=== PATIENT | female | born 1975 | race Caucasian/White ===

== ENCOUNTER 2017-08-10 08:55 | Emergency (ER) | payer BC, SELFPAY ==
[2017-08-10 09:25] VITALS: BP 126/72; PULSE 69; RESP 18; TEMP 36.8; O2SAT 100; BMI 28.7
[2017-08-10 09:26] LABS: Color,Urine Orange (Yellow)
[2017-08-10 09:27] LABS: Apearance,Urine Clear (Clear); Blood, Urine 4+ (Negative); Glucose,Urine (UA) 100 (Negative); Ketones,Urine 15 (Negative); PH,Urine 6.5 (5.0-8.5); Protein,Urine 2+ (Negative); Specific Gravity, Urine >= 1.030 (1.005-1.030)
[2017-08-10 09:28] LABS: Bilirubin,Urine 3+ (Negative); UTC Leukocyte Esterase,Urine 3+ (Negative); UTC Nitrate,Urine Positive (Negative); Urobilinogen,Urine 4 EU/dl (0.2)
--- NOTE | 2017-08-10 09:43 | HMH.EDUTC ---
[facility] Disposition Clinical Impression: UTI (urinary tract infection) Qualifiers: Urinary tract infection type: acute cystitis Hematuria presence: with hematuria Qualified Code(s): N30.01 - Acute cystitis with hematuria Disposition: Home, Self-Care Condition on Discharge: Good Instructions: DI for Urinary Tract Infection (UTI) Additional Instructions: * increase fluids, Water and NOT soda or tea * Start antibiotic immediately and be sure to take as ordered for the FULL length of time although you should start to see improvement over the next 48 hours. * pyridium as needed. Remember this will turn your urine ORANGE, this is normal but will stain whatever it gets on. this includes tears and contacts. Try not to wear contacts due to risk of staining orange. * You should not need the pyridium longer than 48 hours. If so, follow up with primary care to review urine culture and ensure antibiotic is adequate * Be SURE to follow up anytime for new or worsening symptoms, AND in 48 hours for urine culture results AND in 10-14 days to repeat UA and ensure infection resolved and blood no longer present. * Be sure to let your PCP (or whoever you follow up with) know we sent urine culture so they can request records and ensure you are on the appropriate antibiotic if you are not getting better or getting worse!!! Prescriptions: Phenazopyridine HCl [Pyridium 200mg Tablet] 200 mg PO TID PRN #6 tab PRN Reason: Dysuria Sulfamethoxazole/Trimethoprim [Bactrim DS tablet] 1 each PO BID #20 tab Referrals: Ludin Edwards MD [Primary Care Provider] - (as we discussed. See discharge instructions.) Time of Disposition: 09:47 Medical Decision Making Vital Signs: 08/10/17 09:25 Temperature 98.2 F Temperature Source Temporal Artery Scan Pulse Rate [Brachial] 69 Respiratory Rate 18 Blood Pressure [Right Arm] 126/72 Blood Pressure Mean [Right Arm] 90 Blood Pressure Source [Right Arm] Automatic Cuff Blood Pressure Position [Right Arm] Sitting 02 Sat by Pulse Oximetry 100 Oxygen Delivery Method Room Air - Lab Data Lab results reviewed: Yes: I reviewed the patient's lab results. Lab Results 08/10/17 09:25: Urine Color [place], Urine Appearance Clear, Urine pH 6.5, Ur Specific [place] >= 1.030, Urine Protein 2+, Urine Glucose (UA) 100, Urine Ketones 15, Urine Blood 4+, Urine Nitrate Positive A, Urine Bilirubin 3+ A, Urine Urobilinogen 4, Ur Leukocyte Esterase 3+ A Orders (Tests/Meds): ORDERS Category Date Time Status Urine Culture Stat Micro 08/10/17 09:44 Ordered - Oliverio Inquiry Pt receiving controlled substance: No [facility] HPI - General Stated complaint: possible uti Time Seen by Provider: 08/10/17 09:32 Mode of Arrival: Ambulatory Source of Information: Patient Limitations: No Limitations Description of Symptoms (Recalled from Triage Doc. by RN): POSSIBLE UTI SINCE THURSDAY HEENT Symptoms (Recalled from RN notes): No Resp Symptoms (Recalled from RN notes): No Skin Symptoms (Recalled from RN notes): No MS Symptoms (Recalled from RN notes): No Functional Status (Recalled from RN notes): NA - History of Present Illness Provider Complaint: c/o I think another UTI . Hx of UTIs. Last one around 9 months ago. Has been to urologist and they can't find a cause . Currently menstrauting. Started with typical not feeling well overall on Thursday. Woke up Thursday with dysuria. Tried to get in to PCP but full. Worse yesterday. Azo helped. Tried avoiding urgent care and waiting for PCP today. Couldn't get in there today so now here. Hasn't taken or tried anything else. Hx of intolerance to Cipro. - Related Data Home Medications Medication Instructions Recorded Confirmed Desvenlafaxine [Desvenlafaxine ER] 100 mg PO DAILY 08/10/17 08/10/17 Folic Acid [Folic Acid 1mg tablet] 1 mg PO DAILY 08/10/17 08/10/17 Hydroxychloroquine Sulfate 0 mg PO DAILY 08/10/17 08/10/17 [Plaquenil 200mg tablet] Lisinopril/Hydrochlorothiazide 1 tab PO D
--- NOTE | 2017-08-10 09:47 | ED_ITS ---
[facility] [place] Impression: UTI (urinary tract infection) Qualifiers: Urinary tract infection type: acute cystitis Hematuria presence: with hematuria Qualified Code(s): N30.01 - Acute cystitis with hematuria Disposition: Home, Self-Care Condition on Discharge: Good Instructions: DI for Urinary Tract Infection (UTI) Additional Instructions: * increase fluids, Water and NOT soda or tea * Start antibiotic immediately and be sure to take as ordered for the FULL length of time although you should start to see improvement over the next 48 hours. * pyridium as needed. Remember this will turn your urine ORANGE, this is normal but will stain whatever it gets on. this includes tears and contacts. Try not to wear contacts due to risk of staining orange. * You should not need the pyridium longer than 48 hours. If so, follow up with primary care to review urine culture and ensure antibiotic is adequate * Be SURE to follow up anytime for new or worsening symptoms, AND in 48 hours for urine culture results AND in 10-14 days to repeat UA and ensure infection resolved and blood no longer present. * Be sure to let your PCP (or whoever you follow up with) know we sent urine culture so they can request records and ensure you are on the appropriate antibiotic if you are not getting better or getting worse!!! Prescriptions: Phenazopyridine HCl [Pyridium 200mg Tablet] 200 mg PO TID PRN #6 tab PRN Reason: Dysuria Sulfamethoxazole/Trimethoprim [Bactrim DS tablet] 1 each PO BID #20 tab Referrals: Ludin Edwards MD [Primary Care Provider] - (as we discussed. See discharge instructions.) Time of Disposition: 09:47 Medical Decision Making Vital Signs: 08/10/17 09:25 Temperature 98.2 F Temperature Source Temporal Artery Scan Pulse Rate [Brachial] 69 Respiratory Rate 18 Blood Pressure [Right Arm] 126/72 Blood Pressure Mean [Right Arm] 90 Blood Pressure Source [Right Arm] Automatic Cuff Blood Pressure Position [Right Arm] Sitting 02 Sat by Pulse Oximetry 100 Oxygen Delivery Method Room Air - Lab Data Lab results reviewed: Yes: I reviewed the patient's lab results. Lab Results 08/10/17 09:25: Urine Color [place], Urine Appearance Clear, Urine pH 6.5, Ur Specific [place] >= 1.030, Urine Protein 2+, Urine Glucose (UA) 100, Urine Ketones 15, Urine Blood 4+, Urine Nitrate Positive A, Urine Bilirubin 3+ A, Urine Urobilinogen 4, Ur Leukocyte Esterase 3+ A Orders (Tests/Meds): ORDERS Category Date Time Status Urine Culture Stat Micro 08/10/17 09:44 Ordered - Oliverio Inquiry Pt receiving controlled substance: No [facility] [place] General Stated complaint: possible uti Time Seen by Provider: 08/10/17 09:32 Mode of Arrival: Ambulatory Source of Information: Patient Limitations: No Limitations Description of Symptoms (Recalled from Triage Doc. by RN): POSSIBLE UTI SINCE THURSDAY HEENT Symptoms (Recalled from RN notes): No Resp Symptoms (Recalled from RN notes): No Skin Symptoms (Recalled from RN notes): No MS Symptoms (Recalled from RN notes): No Functional Status (Recalled from RN notes): NA - History of Present Illness Provider Complaint: c/o I think another UTI . Hx of UTIs. Last one around 9 months ago. Has been to urologist and they can't find a cause . Currently menstrauting. Started with typical not feeling well overall on Thursday. Woke up Thursday with dysuria. Tried to get in to PCP but full. Worse yesterday. Azo helped. Tried avoid
== END 2017-08-10 09:48 | disposition home or self-care (01) ==
PROVIDERS: Emergency Provider Nurse Practitioner Family; Family Provider Family Medicine; PCP Family Medicine
DX: N30.01 Acute cystitis with hematuria (principal); Z87.440 Personal history of urinary (tract) infections; Z79.899 Other long term (current) drug therapy; I10 Essential (primary) hypertension; F41.9 Anxiety disorder, unspecified; F32.9 Major depressive disorder, single episode, unspecified
CPT/HCPCS: 81003; 87086; 99202

== ENCOUNTER → 2017-10-30 08:03 | Outpatient (CLI) | payer BC, SELFPAY ==
[2017-10-30 09:08] LABS: Basophils # 0.1 K/mm3 (0-0.2); Basophils % 1.2 % (0.1-2.0); Eosinophils # 0.1 K/mm3 (0.0-0.4); Eosinophils % 2.3 % (0.1-12.0); Hematocrit 37.5 % (37.0-47.0); Hemoglobin 12.3 g/dL (12.2-16.2); Lymphocytes # 1.5 K/mm3 (0.7-4.5); Lymphocytes % 34.7 K/mm3 (10-50); Mean Corpuscular HGB Conc 32.7 g/dL (31.8-35.4); Mean Corpuscular Hemoglobin 26.8 pg (27.0-31.2); Mean Corpuscular Volume 81.9 fl (81-99); Mean Platelet Volume 8.3 fl (7.4-10.4); Monocytes # 0.4 K/mm3 (0.1-1.0); Monocytes % 9.1 % (1.7-9.3); Neutrophils # 2.2 K/mm3 (1.8-7.8); Neutrophils % 52.7 % (37.0-80.0); Platelet Count 303 K/mm3 (142-424); Red Blood Count 4.58 M/mm3 (4.20-5.40); Red Cell Distribution Width 14.2 % (11.5-17.5); White Blood Count 4.2 K/mm3 (4.8-10.8)
[2017-10-30 09:35] LABS: Alanine Aminotransferase 19 U/L (12-78); Aspartate Amino Transferase 20 U/L (15-37); Estimated Glomerular Filt Rate 61 ml/min (>60); GFR (African American) 73 ML/MIN (>60)
== END ==
PROVIDERS: Visit Provider Nurse Practitioner
DX: M06.9 Rheumatoid arthritis, unspecified (principal)
CPT/HCPCS: 36415; 82565; 84450; 84460; 85025

== ENCOUNTER → 2017-11-30 12:30 | Outpatient (CLI) | payer BC, SELFPAY ==
[2017-11-30 14:29] LABS: Basophils # 0.1 K/mm3 (0-0.2); Basophils % 1.3 % (0.1-2.0); Eosinophils # 0.1 K/mm3 (0.0-0.4); Eosinophils % 2.6 % (0.1-12.0); Hematocrit 36.7 % (37.0-47.0); Hemoglobin 11.8 g/dL (12.2-16.2); Lymphocytes # 1.9 K/mm3 (0.7-4.5); Lymphocytes % 38.6 K/mm3 (10-50); Mean Corpuscular HGB Conc 32.1 g/dL (31.8-35.4); Mean Corpuscular Hemoglobin 26.7 pg (27.0-31.2); Mean Corpuscular Volume 82.9 fl (81-99); Mean Platelet Volume 8.1 fl (7.4-10.4); Monocytes # 0.4 K/mm3 (0.1-1.0); Monocytes % 8.4 % (1.7-9.3); Neutrophils # 2.4 K/mm3 (1.8-7.8); Neutrophils % 49.2 % (37.0-80.0); Platelet Count 307 K/mm3 (142-424); Red Blood Count 4.43 M/mm3 (4.20-5.40); Red Cell Distribution Width 14.4 % (11.5-17.5); White Blood Count 4.9 K/mm3 (4.8-10.8)
[2017-11-30 14:38] LABS: Alanine Aminotransferase 19 U/L (12-78); Aspartate Amino Transferase 16 U/L (15-37); Creatinine,Serum 0.81 mg/dL (0.55-1.02); Estimated Glomerular Filt Rate 77 ml/min (>60); GFR (African American) 93 ML/MIN (>60)
== END ==
PROVIDERS: Visit Provider Nurse Practitioner
DX: M06.9 Rheumatoid arthritis, unspecified (principal)
CPT/HCPCS: 36415; 82565; 84450; 84460; 85025

== ENCOUNTER → 2018-05-25 08:01 | Outpatient (CLI) | payer BC, SELFPAY ==
[2018-05-25 08:31] LABS: Basophils # 0.1 K/mm3 (0-0.2); Basophils % 1.2 % (0.1-2.0); Eosinophils # 0.1 K/mm3 (0.0-0.4); Hematocrit 38.3 % (37.0-47.0); Hemoglobin 11.9 g/dL (12.2-16.2); Lymphocytes # 1.5 K/mm3 (0.7-4.5); Lymphocytes % 38.2 K/mm3 (10-50); Mean Corpuscular HGB Conc 31.1 g/dL (31.8-35.4); Mean Corpuscular Hemoglobin 25.5 pg (27.0-31.2); Mean Corpuscular Volume 81.9 fl (81-99); Mean Platelet Volume 7.1 fl (7.4-10.4); Monocytes # 0.4 K/mm3 (0.1-1.0); Monocytes % 8.8 % (1.7-9.3); Neutrophils % 49.8 % (37.0-80.0); Platelet Count 296 K/mm3 (142-424); Red Blood Count 4.67 M/mm3 (4.20-5.40); White Blood Count 3.9 K/mm3 (4.8-10.8)
[2018-05-25 08:51] LABS: Alanine Aminotransferase 21 U/L (12-78); Aspartate Amino Transferase 17 U/L (15-37); Creatinine,Serum 0.88 mg/dL (0.55-1.02); Estimated Glomerular Filt Rate 70 ml/min (>60); GFR (African American) 84 ML/MIN (>60)
== END ==
PROVIDERS: Visit Provider Nurse Practitioner
DX: M06.9 Rheumatoid arthritis, unspecified (principal)
CPT/HCPCS: 36415; 82565; 84450; 84460; 85025

== ENCOUNTER → 2018-08-04 07:40 | Outpatient (CLI) | payer BC, SELFPAY ==
--- NOTE | 2018-08-04 07:45 | US_ITS ---
US abdomen limited History:Right upper quadrant pain Ordering Physician:Ludin Edwards MD Patient Age: 43 years Comparison:None Findings: Pancreas:Unremarkable. No obvious mass or abnormal fluid collection. No ductal dilatation Liver:No focal liver lesions demonstrated. Homogeneous echogenicity. No intrahepatic biliary ductal dilatation evident Right Kidney:Unremarkable. Normal size and echogenicity. No hydronephrosis Gallbladder:No gallstones, gallbladder wall thickening, pericholecystic fluid, or biliary dilatation. Small amount sludge is present in the gallbladder. Gallbladder mildly distended Impression: 1. Small amount of sludge within a mildly distended gallbladder. 2. No gallstones or other significant anomalies
== END ==
PROVIDERS: PCP Family Medicine; Visit Provider Family Medicine
DX: R10.11 Right upper quadrant pain (principal)
CPT/HCPCS: 76705

== ENCOUNTER → 2018-08-16 11:56 | Outpatient (CLI) | payer BC, SELFPAY ==
--- NOTE | 2018-08-16 12:08 | NM_ITS ---
NM hepatobiliary w pharm HISTORY: ITS.REASON: RUQ PAIN,GB SLUDGE ORDERING PHYSICIAN: Ludin Edwards MD PATIENT AGE: 43 years COMPARISON: 08/04/2018 DOSE: 8.5 mCi technetium Choletec, 1.3 mcg of CCK. No pain reported with CCK infusion FINDINGS: Homogeneous activity is present within the hepatic parenchyma. Activity is present in the gallbladder by 15 minutes. Activity is present in the small bowel by 50 minutes. The gallbladder ejection fraction is calculated to be 38 % The patient did not report pain or other symptoms during CCK infusion. IMPRESSION: Unremarkable hepatobiliary scan and gallbladder ejection fraction. No evidence of common or cystic duct obstruction. Gallbladder ejection fraction is along the lower limits of normal at 38%
--- NOTE | 2018-08-16 12:19 | HMH.ITSHM ---
Current Home Medications as stated by this patient Daysi Morrison or community engagement representative. []METHACARBAMOL OXYPROZIN HYDROCHLOROTHIAZIDE PRETIQUIE BUSPURON FOLIC ACID PLAQUINEL METHATREXATE PREDNISONE
== END ==
PROVIDERS: PCP Family Medicine; Visit Provider Family Medicine
DX: R10.11 Right upper quadrant pain (principal); K82.8 Other specified diseases of gallbladder
CPT/HCPCS: 78227; A9537; J2805

== ENCOUNTER → 2018-08-26 13:06 | Outpatient (CLI) | payer BC, SELFPAY ==
[2018-08-26 14:04] LABS: Basophils % 0.6 % (0.1-2.0); Eosinophils # 0.1 K/mm3 (0.0-0.4); Eosinophils % 2.1 % (0.1-12.0); Hemoglobin 11.7 g/dL (12.2-16.2); Lymphocytes # 2.1 K/mm3 (0.7-4.5); Lymphocytes % 34.9 % (10-50); Mean Corpuscular HGB Conc 31.6 g/dL (31.8-35.4); Mean Corpuscular Hemoglobin 25.7 pg (27.0-31.2); Mean Corpuscular Volume 81.3 fl (81-99); Monocytes # 0.3 K/mm3 (0.1-1.0); Monocytes % 5.7 % (1.7-9.3); Neutrophils # 3.4 K/mm3 (1.8-7.8); Neutrophils % 56.8 % (37.0-80.0); Platelet Count 320 K/mm3 (142-424); Red Blood Count 4.55 M/mm3 (4.20-5.40); Red Cell Distribution Width 14.5 % (11.5-17.5)
[2018-08-26 14:29] LABS: HCG Qualitative, Serum Negative (Negative)
[2018-08-26 15:07] LABS: Alanine Aminotransferase 24 U/L (12-78); Albumin Level 3.5 gm/dL (3.4-5.0); Albumin/Globulin Ratio 1.1 (1.1-1.8); Alkaline Phosphatase 42 U/L (46-116); Anion Gap 12.8 mEq/L (5-15); Aspartate Amino Transferase 14 U/L (15-37); Bilirubin,Total 0.4 mg/dL (0.2-1.0); Blood Urea Nitrogen 15 mg/dL (7-18); Calcium 8.6 mg/dL (8.5-10.1); Carbon Dioxide 28 mmol/L (21.0-32.0); Chloride 103 mmol/L (98-107); Creatinine,Serum 0.82 mg/dL (0.55-1.02); Estimated Glomerular Filt Rate 76 ml/min (>60); GFR (African American) 92 ML/MIN (>60); Globulin 3.1 gm/dl (1.3-3.2); Glucose 100 mg/dL (74-106); Potassium 3.8 mmoL/L (3.5-5.1); Sodium 140 mmol/L (136-145); Total Protein,Serum 6.6 gm/dL (6.4-8.2)
== END ==
PROVIDERS: Visit Provider Surgery
DX: Z01.818 Encounter for other preprocedural examination (principal); K82.8 Other specified diseases of gallbladder
CPT/HCPCS: 36415; 80053; 84703; 85025; 93005

== ENCOUNTER → 2018-11-16 10:39 | Outpatient (CLI) | payer BC, SELFPAY ==
[2018-11-16 10:53] LABS: Basophils # 0.1 K/mm3 (0-0.2); Basophils % 1.2 % (0.1-2.0); Eosinophils # 0.1 K/mm3 (0.0-0.4); Eosinophils % 2.5 % (0.1-12.0); Hematocrit 38.1 % (37.0-47.0); Lymphocytes # 2.1 K/mm3 (0.7-4.5); Mean Corpuscular HGB Conc 31.6 g/dL (31.8-35.4); Mean Corpuscular Hemoglobin 25.4 pg (27.0-31.2); Mean Corpuscular Volume 80.6 fl (81-99); Mean Platelet Volume 7.3 fl (7.4-10.4); Monocytes # 0.4 K/mm3 (0.1-1.0); Neutrophils # 2.5 K/mm3 (1.8-7.8); Neutrophils % 48.3 % (37.0-80.0); Platelet Count 325 K/mm3 (142-424); Red Blood Count 4.73 M/mm3 (4.20-5.40); Red Cell Distribution Width 14.6 % (11.5-17.5); White Blood Count 5.2 K/mm3 (4.8-10.8)
[2018-11-16 14:42] LABS: Alanine Aminotransferase 25 U/L (12-78); Aspartate Amino Transferase 15 U/L (15-37); Creatinine,Serum 1.03 mg/dL (0.55-1.02); Estimated Glomerular Filt Rate 58 ml/min (>60); GFR (African American) 70 ML/MIN (>60)
== END ==
PROVIDERS: Visit Provider Nurse Practitioner
DX: M05.9 Rheumatoid arthritis with rheumatoid factor, unspecified (principal)
CPT/HCPCS: 36415; 82565; 84450; 84460; 85025

== ENCOUNTER → 2019-04-15 15:42 | Outpatient (CLI) | payer BC, SELFPAY ==
--- NOTE | 2019-04-15 | ECG_ITS ---
APPROVED REPORT Exam: Resting ECG HR:86 bpm ECG Measurements Heart Rate 86 AXES ND 152 P 75 QRSd 80 QRS 91 QT 390 T 69 QTc 466 <Conclusion> Normal sinus rhythm Rightward axis Prolonged QT Abnormal ECG Electronically signed by : Farhad Sanchez, 04/17/2019 18:03:25
[2019-04-15 16:14] LABS: Basophils # 0.1 K/mm3 (0-0.2); Basophils % 0.9 % (0.1-2.0); Eosinophils # 0.1 K/mm3 (0.0-0.4); Eosinophils % 1.1 % (0.1-12.0); Hematocrit 39.3 % (37.0-47.0); Hemoglobin 11.7 g/dL (12.2-16.2); Lymphocytes # 1.7 K/mm3 (0.7-4.5); Lymphocytes % 28.6 % (10-50); Mean Corpuscular HGB Conc 29.8 g/dL (31.8-35.4); Mean Corpuscular Hemoglobin 25.1 pg (27.0-31.2); Mean Corpuscular Volume 84.1 fl (81-99); Mean Platelet Volume 7.9 fl (7.4-10.4); Monocytes # 0.4 K/mm3 (0.1-1.0); Monocytes % 6.7 % (1.7-9.3); Neutrophils # 3.8 K/mm3 (1.8-7.8); Neutrophils % 62.7 % (37.0-80.0); Platelet Count 298 K/mm3 (142-424); Red Blood Count 4.67 M/mm3 (4.20-5.40); Red Cell Distribution Width 16.1 % (11.5-17.5)
[2019-04-15 16:58] LABS: Alanine Aminotransferase 27 U/L (12-78); Albumin Level 3.7 gm/dL (3.4-5.0); Albumin/Globulin Ratio 1.1 (1.1-1.8); Alkaline Phosphatase 57 U/L (46-116); Anion Gap 10.5 mEq/L (5-15); Aspartate Amino Transferase 32 U/L (15-37); Bilirubin,Total 0.5 mg/dL (0.2-1.0); Blood Urea Nitrogen 14 mg/dL (7-18); Calcium 8.9 mg/dL (8.5-10.1); Carbon Dioxide 30 mmol/L (21.0-32.0); Chloride 103 mmol/L (98-107); Creatine Kinase 83 U/L (26-192); Estimated Glomerular Filt Rate 60 ml/min (>60); GFR (African American) 73 ML/MIN (>60); Globulin 3.4 gm/dl (1.3-3.2); Glucose 125 mg/dL (74-106); Potassium 3.5 mmoL/L (3.5-5.1); Sodium 140 mmol/L (136-145); Thyroid Stimulating Hormone 1.19 uIU/ml (0.358-3.740); Total Protein,Serum 7.1 gm/dL (6.4-8.2); Troponin I < 0.02 ng/ml (0.00-0.06)
[2019-04-15 17:04] LABS: C-Reactive Protein < 0.2 mg/dL (0.0-0.9); CKMB Relative Index 0.6 U/L (0-4.0); Creatine Kinase MB < 0.5 ng/ml (0.0-3.6)
[2019-04-15 18:24] LABS: Erythrocyte Sedimentation Rate 42 mm/hr (0-20)
== END ==
PROVIDERS: PCP Family Medicine; Visit Provider Family Medicine
DX: R07.9 Chest pain, unspecified (principal)
CPT/HCPCS: 36415; 80053; 82550; 82553; 84443; 84484; 85025; 85651; 86140; 93005

== ENCOUNTER → 2020-03-15 14:47 | Outpatient (CLI) | payer BC, SELFPAY ==
--- NOTE | 2020-03-15 14:53 | XR_ITS ---
PROCEDURE: XR FOOT WT BEARING RT 3V CLINICAL INDICATION: pain COMPARISON: No exams were available for comparison FINDINGS: No fracture or dislocation. No lytic or blastic change. There is normal mineralization. The joint spaces are well-preserved. No significant degenerative/arthritic changes. No erosive changes evident. Other findings:None. IMPRESSION: No acute findings. Dictated by: Johann Meier MD 03/15/2020 17:25 Johann Meier MD in [place] 03/15/2020 17:25
--- NOTE | 2020-03-15 14:53 | XR_ITS ---
PROCEDURE: XR FOOT WT BEARING LT 3V CLINICAL INDICATION: pain COMPARISON: CR FTL3 FOOT-LT-3 VIEWS from 05/05/2017 FINDINGS: No fracture or dislocation. No lytic or blastic change. There is normal mineralization. The joint spaces are well-preserved. No significant degenerative/arthritic changes. No erosive changes evident. Other findings:None. IMPRESSION: No acute findings. Dictated by: Johann Meier MD 03/15/2020 17:25 Johann Meier MD in [place] 03/15/2020 17:25
== END ==
PROVIDERS: PCP Family Medicine; Visit Provider Podiatrist
DX: M79.671 Pain in right foot (principal); M79.672 Pain in left foot
CPT/HCPCS: 73630

== ENCOUNTER → 2020-07-04 08:05 | Outpatient (CLI) | payer BC, SELFPAY ==
[2020-07-04 09:07] LABS: Basophils # 0.1 K/mm3 (0-0.2); Basophils % 1.5 % (0.1-2.0); Eosinophils # 0.2 K/mm3 (0.0-0.4); Eosinophils % 3.5 % (0.1-12.0); Hematocrit 44.6 % (37.0-47.0); Hemoglobin 14.5 g/dL (12.2-16.2); Lymphocytes # 2.4 K/mm3 (0.7-4.5); Lymphocytes % 40.3 % (10-50); Mean Corpuscular HGB Conc 32.6 g/dL (31.8-35.4); Mean Corpuscular Hemoglobin 28.3 pg (27.0-31.2); Mean Corpuscular Volume 86.9 fl (81-99); Mean Platelet Volume 7.8 fl (7.4-10.4); Monocytes # 0.6 K/mm3 (0.1-1.0); Monocytes % 9.8 % (1.7-9.3); Neutrophils # 2.7 K/mm3 (1.8-7.8); Platelet Count 316 K/mm3 (142-424); Red Blood Count 5.14 M/mm3 (4.20-5.40); Red Cell Distribution Width 13.7 % (11.5-17.5); White Blood Count 6.1 K/mm3 (4.8-10.8)
[2020-07-04 09:43] LABS: Alanine Aminotransferase 28 U/L (12-78); Aspartate Amino Transferase 34 U/L (14-36); Estimated Glomerular Filt Rate 60 ml/min (>60); GFR (African American) 72 ML/MIN (>60)
== END ==
PROVIDERS: Visit Provider Nurse Practitioner
DX: M06.9 Rheumatoid arthritis, unspecified (principal)
CPT/HCPCS: 36415; 82565; 84450; 84460; 85025

== ENCOUNTER → 2020-12-19 07:34 | Outpatient (CLI) | payer BC, SELFPAY ==
[2020-12-19 08:40] LABS: Alanine Aminotransferase 38 U/L (12-78); Albumin Level 4.1 g/dl (3.5-5.0); Albumin/Globulin Ratio 1.5 (1.1-1.8); Alkaline Phosphatase 46 U/L (38-126); Anion Gap 8.7 mEq/L (5-15); Aspartate Amino Transferase 42 U/L (14-36); Bilirubin,Total 0.8 mg/dl (0.2-1.3); Blood Urea Nitrogen 19 mg/dl (7-17); Calcium 9.2 mg/dl (8.4-10.2); Carbon Dioxide 31 mmol/L (22.0-30.0); Chloride 102 mmol/L (98-107); Cholesterol 253 mg/dl (140-200); Estimated Glomerular Filt Rate 60 ml/min (>60); GFR (African American) 72 ML/MIN (>60); Globulin 2.7 g/dL (1.3-3.2); Glucose 82 mg/dl (74-100); HDL Cholesterol 83 mg/dl (40-60); Potassium 3.7 mmoL/L (3.5-5.1); Sodium 138 mmol/L (136-145); Total Protein,Serum 6.8 g/dl (6.3-8.2); Triglycerides 57 mg/dl (30-150); VLDL Cholesterol 11 mg/dL (0-40)
== END ==
PROVIDERS: Visit Provider Family Medicine
DX: I10 Essential (primary) hypertension (principal); F41.8 Other specified anxiety disorders; M06.9 Rheumatoid arthritis, unspecified
CPT/HCPCS: 36415; 80053; 80061

== ENCOUNTER → 2021-03-09 07:39 | Outpatient (CLI) | payer BC, SELFPAY ==
--- NOTE | 2021-03-09 07:40 | MR_ITS ---
PROCEDURE INFORMATION: Exam: MR Left Lower Extremity Other Than Joint Without and With Contrast; Foot Exam date and time: 03/09/2021 7:40 AM Age: 45 years old Clinical indication: Pain; Foot and heel; Left; Patient HX: Eval for plantar fascia tear TECHNIQUE: Imaging protocol: MR of the Left lower extremity without and with intravenous contrast. Exam focused on the foot. Contrast material: PROHANCE; Contrast volume: 15 ml; Contrast route: IV; COMPARISON: CR XR FOOT WT BEARING LT 3V 03/15/2020 3:06 PM FINDINGS: Bones and cartilage: Unremarkable. Joint spaces: Unremarkable. No joint effusion. LIGAMENTS: Lisfranc ligament: Unremarkable. No evidence of tear. TENDONS: Flexor tendons of foot: Unremarkable. No evidence of tear. Tibialis posterior tendon: Unremarkable as visualized. Peroneal tendons: Unremarkable as visualized. Extensor tendons of foot: Unremarkable. No evidence of tear. Tibialis anterior tendon: Unremarkable as visualized. Tarsal canal (Sinus tarsi): Unremarkable. Tarsal tunnel: Unremarkable. Soft tissues: Unremarkable. Plantar fascia: Minimal plantar calcaneal spurring. Plantar fascia is intact without tear, fibromatosis, or current evidence for fasciitis. IMPRESSION: Minimal plantar calcaneal spurring. Plantar fascia is intact without tear, fibromatosis, or current evidence for fasciitis.
== END ==
PROVIDERS: PCP Family Medicine; Visit Provider Podiatrist
DX: M72.2 Plantar fascial fibromatosis (principal); M76.61 Achilles tendinitis, right leg
CPT/HCPCS: 73720; A9576

== ENCOUNTER → 2021-06-25 15:34 | Outpatient (POV) | payer BC, SELFPAY | PROVIDERS: Visit Provider Dermatology | DX: Z00.00 Encounter for general adult medical examination without abnormal findings (principal) ==

== ENCOUNTER → 2021-09-16 10:10 | Outpatient (CLI) | payer BC, SELFPAY ==
[2021-09-18 20:09] LABS: QuantiFERON-TB Gold Plus Negative (Negative)
== END ==
PROVIDERS: Visit Provider Nurse Practitioner
DX: Z11.1 Encounter for screening for respiratory tuberculosis (principal)
CPT/HCPCS: 36415; 86480

== ENCOUNTER 2022-01-27 09:07 | Emergency (ER) | payer BC, SELFPAY ==
[2022-01-27 09:25] VITALS: BP 134/80; PULSE 86; RESP 16; TEMP 36.8; O2SAT 100; BMI 26.5
--- NOTE | 2022-01-27 10:12 | HMH.EDUTC ---
[facility] [place]position Clinical Impression: Otitis externa Qualifiers: Otitis externa type: unspecified type Chronicity: unspecified Laterality: left Qualified Code(s): H60.92 - Unspecified otitis externa, left ear Disposition: Home, Self-Care Condition on Discharge: Good Instructions: DI for Otitis Externa, Otitis Externa, Neomycin, Polymyxin, Bacitracin, and Hydrocortisone Ophthalmic Additional Instructions: *Monitor Temp, Over the counter Motrin or Tylenol as directed/as needed Tylenol every 4 hours and Motrin every 6 hours (as long as your family doctor has told you that you can take it) for fever or pain. and straight to ER if unable to lower temp less than 101.0 after medication given Use drops as prescribed *Sleep elevated *Humidifier/Vaporizer *Flonase 2 sprays in each nostril daily but be aware that it may take 2-3 days before you notice improvement Take medication as prescribed Follow up IMMEDIATELY for new or worsening symptoms or no Noticeable improvement over the next 48-72 hours. 911 for difficulty breathing or swallowing Prescriptions: Fluticasone Propionate [Flonase 50mcg nasal spray 16gm] 1 spr NS DAILY #1 each Transmission Status: Pending to [facility] methylPREDNISolone [Medrol 4mg tab] 4 mg PO DIRECTED #21 tab Transmission Status: Pending to [facility] Neomycin/Polymyxin B Sulf/Hc [Tsfcyiwd-Hxkraudkj-FX Otic Susp 10mL] 4 drp OT TID 7 Days #10 ml Transmission Status: Pending to [facility] Referrals: Deloris Nova MD [Primary Care Provider] - As needed Time of Disposition: 10:23 Medical Decision Making - Oliverio Inquiry Pt receiving controlled substance: No Oliverio was queried for this patient: No Vital Signs: 01/27/22 09:25 Temperature 98.2 F Temperature Source Oral Pulse Rate [Left] 86 Respiratory Rate 16 Blood Pressure [Right Arm] 134/80 Blood Pressure Mean [Right Arm] 98 02 Sat by Pulse Oximetry 100 Medical Decision Narrative: Patient states that she has taken medrol in the past without complications or reactions [facility] [place] HPI - General Stated complaint: ear pain Time Seen by Provider: 01/27/22 10:15 Description of Symptoms (Recalled from Triage Doc. by RN): patient comes in with complaints of bilateral ear pain. patient was swimming this weekend. HEENT Symptoms (Recalled from RN notes): Yes Resp Symptoms (Recalled from RN notes): No Skin Symptoms (Recalled from RN notes): No MS Symptoms (Recalled from RN notes): No Functional Status (Recalled from RN notes): n/a - History of Present Illness Provider Complaint: Patient state that she was swimming over the weekend and now having pain and feeling of water in both ears States that she feels like her hearing is a little muffled States that today her ears was hurting so she came in to get checked - Related Data Home Medications Medication Instructions Recorded Confirmed Folic Acid [Folic Acid 1mg tablet] 1 mg PO DAILY 08/10/17 04/22/21 Lisinopril/Hydrochlorothiazide 1 tab PO DAILY 08/10/17 01/27/22 [Lisinopril-Hctz 20-12.5 mg Tab] methocarbamoL [Methocarbamol 750mg 750 mg PO BID 08/10/17 04/22/21 Tab] Desvenlafaxine Succinate [Pristiq] 100 mg PO DAILY 02/21/18 01/27/22 buspirone 7.5 mg tablet 7.5 mg PO DAILY tab 03/15/20 01/27/22 hydroxychloroquine 200 mg tablet 200 mg PO DAILY tab 03/15/20 01/27/22 meloxicam 15 mg tablet 15 mg PO DAILY tab 03/15/20 01/27/22 prednisone 5 mg tablet 5 mg PO DAILY tab 03/15/20 04/22/21 adalimumab 40 mg/0.8 mL See Rx Instructions SQ .COMPLEX 07/31/20 04/22/21 subcutaneous syringe kit methotrexate sodium 2.5 mg tablet 5 mg PO tab 04/22/21 04/22/21 Previous Rx's Medication Instructions Recorded Fluticasone Propionate [Flonase 1 spr NS DAILY #1 each 01/27/22 50mcg nasal spray 16gm] Neomycin/Polymyxin B Sulf/Hc 4 drp OT TID 7 Days #10 ml 01/27/22 [Ktxpxqdr-Arkamzkmo-LL Otic Susp 10mL] methylPREDNISolone [Medrol 4mg 4 mg PO DIRECTED #21 tab
[2022-01-27 10:29] VITALS: BP 134/80; PULSE 86; RESP 16; TEMP 36.8
== END 2022-01-27 10:30 | disposition home or self-care (01) ==
PROVIDERS: Emergency Provider Nurse Practitioner; PCP Family Medicine
DX: H60.92 Unspecified otitis externa, left ear (principal)
CPT/HCPCS: 99212; G0463

== ENCOUNTER 2022-03-18 09:54 | Emergency (ER) | payer BC, SELFPAY ==
[2022-03-18 11:40] VITALS: BP 124/84; PULSE 83; RESP 16; TEMP 36.7; O2SAT 96; BMI 27.3
--- NOTE | 2022-03-18 12:00 | EXP.UTC ---
Discharge Plan Disposition Patient Disposition: Home, Self-Care Condition: Good Prescriptions Prescriptions: New cefdinir 300 mg capsule 300 mg PO Q12H 7 Days Qty: 14 0RF phenazopyridine [Pyridium] 200 mg tablet 200 mg PO Q8H 2 Days Qty: 6 0RF No Action buspirone 7.5 mg tablet 7.5 mg PO DAILY meloxicam 15 mg tablet 15 mg PO DAILY Label Comments: TAKE 1 TABLET BY MOUTH ONCE DAILY prednisone 5 mg tablet 5 mg PO DAILY methotrexate sodium 2.5 mg tablet 5 mg PO Humira 40 mg/0.8 mL syringe kit See Rx Instructions SQ .COMPLEX Rx Instructions: inject one - 40 mg/0.8 mL syringe every 2 weeks SQ desvenlafaxine succinate 100 MG tablet extended release 24 hr 100 mg PO DAILY lisinopril-hydrochlorothiazide 1 EACH tablet 1 tab PO DAILY methocarbamol 750 MG tablet 750 mg PO BID folic acid 1 tablet 1 mg PO DAILY Label Comments: hydroxychloroquine 200 mg tablet 200 mg PO DAILY methylprednisolone 4 MG tablet 4 mg PO DIRECTED Qty: 21 0RF Rx Instructions: Take as directed on package instructions fluticasone propionate 120 SPRAY bottle 1 spr NS DAILY Qty: 1 0RF livkepnm-lunwrqyzv-FP 10 ML bottle 4 drp OT TID 7 Days Qty: 10 0RF Rx Instructions: 4drops in each ear every 8 hours for 7 days Referrals Follow up/Referrals: Deloris Nova MD [Primary Care Provider] - See instructions Activity Restrictions/Add. Instructions Additional Instructions/Restrictions: *Increase fluids. Water not Soda or Tea *Start antibiotic immediately and be sure to take as ordered for the FULL length of time although you should start to see improvement over the next 48 hours *Pyridium as needed Remember this medication will turn your urine . This is normal but it will stain what ever it gets on *You should not use Pyridium for more than 48 hours. If so , follow up with your primary physician to review urine culture and ensure that antibiotic is adequate for infection *Be SURE to follow up anytime for new or worsening symptoms with your family doctor. AND in 48 hours for urine culture results with your family doctor, if you do not have a doctor then you may call back to the [facility] for urine culture results and further treatment. We do recommend that you choose and establish care with a Primary Care Physician. ?AND follow up with them ?in 10-14 days to repeat UA to ensure infection is resolved and blood no longer present *Be sure to let your PCP know that we sent urine cultures from the [facility] so they can follow up to ensure that you area the on the correct antibiotic Call your doctor office and make appointment for 48 hours (2 days from today) ?to follow up and get the results of your urine culture and further treatment Clinical Impressions Clinical Impression: UTI (urinary tract infection) Stand Alone Forms Stand Alone Forms: Work/School Release Instructions Patient Instructions: DI for Urinary Tract Infection (UTI) Discharge ED Provider: Lucy Mayorga [facility] [place] HPI General Stated complaint: Possible UTI Mode of Arrival: Ambulatory Source of Information: Patient Limitations: No Limitations Time Seen by Provider: 03/18/22 12:00 Description of Symptoms (Recalled from Triage Doc. by RN): PATIENT C/O LOWER BACK PAIN AND URINARY FREQUENCY X 2 WEEKS HEENT Symptoms (Recalled from RN notes): No Resp Symptoms (Recalled from RN notes): No Skin Symptoms (Recalled from RN notes): No MS Symptoms (Recalled from RN notes): No Functional Status (Recalled from RN notes): WNL History of Present Illness Provider Complaint: Patient states that she has been having achy like feeling in her lower back, urgency and frequency with burning at times when she urinates like she gets with UTI States that today she was still having symptoms so she came in Denies fever, denies chill, denies abdominal pain Related Data Home Medications Medication Instr
[2022-03-18 12:10] VITALS: BP 124/84; PULSE 83; RESP 16; TEMP 36.7; O2SAT 96
[2022-03-18 12:10] LABS: Apearance,Urine Cloudy (Clear); Bilirubin,Urine Negative (Negative); Blood, Urine 2+ (Negative); Color,Urine Orange (Yellow); Glucose,Urine (UA) 100 (Negative); Ketones,Urine Negative (Negative); PH,Urine 6.5 (5.0-8.5); Protein,Urine 1+ (Negative)
[2022-03-18 12:11] LABS: UTC Leukocyte Esterase,Urine 3+ (Negative); UTC Nitrate,Urine Positive (Negative); Urobilinogen,Urine 2 EU/dl (0.2)
== END 2022-03-18 12:16 | disposition home or self-care (01) ==
PROVIDERS: Emergency Provider Nurse Practitioner; PCP Family Medicine
DX: N39.0 Urinary tract infection, site not specified (principal)
CPT/HCPCS: 81003; 87086; 87088; 87186; 99212; G0463

== ENCOUNTER → 2023-02-17 15:15 | Outpatient (CLI) | payer BC, SELFPAY | PROVIDERS: PCP Student in an Organized Health Care Education/Training Program; Visit Provider Student in an Organized Health Care Education/Training Program | DX: N39.0 Urinary tract infection, site not specified (principal); U07.1 COVID-19; R52 Pain, unspecified; B96.89 Other specified bacterial agents as the cause of diseases classified elsewhere | CPT/HCPCS: 87086; 87088; 87186 ==

== ENCOUNTER → 2023-02-27 13:36 | Outpatient (CLI) | payer BC, SELFPAY ==
[2023-02-27 14:20] LABS: Basophils # 0.1 K/mm3 (0-0.2); Basophils % 1.1 % (0.1-2.0); Eosinophils # 0.2 K/mm3 (0.0-0.4); Eosinophils % 2.6 % (0.1-12.0); Hemoglobin 10.9 g/dL (12.2-16.2); Lymphocytes # 2.1 K/mm3 (0.7-4.5); Lymphocytes % 27.8 % (10-50); Mean Corpuscular HGB Conc 31.1 g/dL (31.8-35.4); Mean Corpuscular Hemoglobin 22.8 pg (27.0-31.2); Mean Corpuscular Volume 73.4 fl (81-99); Mean Platelet Volume 9.2 fl (7.4-10.4); Monocytes # 0.7 K/mm3 (0.1-1.0); Neutrophils # 4.5 K/mm3 (1.8-7.8); Neutrophils % 59.5 % (37.0-80.0); Platelet Count 359 K/mm3 (142-424); Red Blood Count 4.77 M/mm3 (4.20-5.40); Red Cell Distribution Width 16.2 % (11.5-17.5); White Blood Count 7.5 K/mm3 (4.8-10.8)
[2023-02-27 14:39] LABS: Hemoglobin A1C 5.5 % (4.0-6.0)
[2023-02-27 14:48] LABS: Alanine Aminotransferase 22 U/L (12-78); Albumin Level 3.9 g/dl (3.5-5.0); Albumin/Globulin Ratio 1.3 (1.1-1.8); Alkaline Phosphatase 61 U/L (38-126); Aspartate Amino Transferase 26 U/L (14-36); Bilirubin,Total 0.2 mg/dl (0.2-1.3); Blood Urea Nitrogen 14 mg/dl (7-17); Calcium 8.9 mg/dl (8.4-10.2); Carbon Dioxide 28 mmol/L (22.0-30.0); Chloride 102 mmol/L (98-107); Estimated Glomerular Filt Rate 67 ml/min (>60); GFR (African American) 81 ML/MIN (>60); Glucose 124 mg/dl (74-100); Sodium 139 mmol/L (136-145); Total Protein,Serum 6.9 g/dl (6.3-8.2)
[2023-02-27 15:20] LABS: Thyroid Stimulating Hormone 1.57 uIU/mL (0.465-4.68)
== END ==
PROVIDERS: PCP Nurse Practitioner Family; Visit Provider Obstetrics & Gynecology
DX: M06.9 Rheumatoid arthritis, unspecified (principal); N95.1 Menopausal and female climacteric states
CPT/HCPCS: 36415; 80053; 83036; 84443; 85025

== ENCOUNTER 2023-03-01 12:29 | Emergency (ER) | payer BC, SELFPAY ==
[2023-03-01 12:40] VITALS: BP 145/98; PULSE 77; RESP 20; TEMP 36.6; O2SAT 98; BMI 27.3
--- NOTE | 2023-03-01 12:43 | EXP.UTC ---
Discharge Plan Disposition Patient Disposition: Home, Self-Care Condition: Good Prescriptions Prescriptions: New phenazopyridine [Pyridium] 200 mg tablet 200 mg PO Q8H 2 Days Qty: 6 0RF ciprofloxacin HCl [Cipro] 500 mg tablet 500 mg PO BID 7 Days Qty: 14 0RF No Action d-mannose 500 mg capsule 500 mg PO DAILY desvenlafaxine succinate 100 MG tablet extended release 24 hr 100 mg PO DAILY lisinopril-hydrochlorothiazide 1 EACH tablet 1 tab PO DAILY hydroxychloroquine 200 mg tablet 200 mg PO DAILY Referrals Follow up/Referrals: Deloris Nova MD [Primary Care Provider] - See instructions Activity Restrictions/Add. Instructions Additional Instructions/Restrictions: Drink plenty of fluids. Take tylenol or ibuprofen for pain or fever. Take the medications as directed. Follow up with your regular doctor. GO TO THE ER FOR ANY WORSENING SYMPTOMS The pyridium will make your urine turn orange, this is an expected side effect. It will stain your clothes if it comes into contact with them. We will culture the urine. That will tell what bacteria is causing your infection and which antibiotics will treat it best. Sometimes the first antibiotic we prescribe turns out to not work against different bacteria. So, make sure you follow up within 3 days if you are not getting better. Clinical Impressions Clinical Impression: UTI (urinary tract infection) Instructions Patient Instructions: Urine Culture, DI for Urinary Tract Infection (UTI) Discharge ED Provider: Eliseo Muse [facility] [place] General Stated complaint: frequent trips to bathroom,bath pain Time Seen by Provider: 03/01/23 12:43 History of Present Illness Provider Complaint: she states that for the past 2 days she has had low back pain, dysuria, and urinary frequency. Related Data Home Medications Medication Instructions Recorded Confirmed lisinopril 20 1 tab PO DAILY Hypertension 08/10/17 03/01/23 mg-hydrochlorothiazide 12.5 mg tablet desvenlafaxine succinate 100 mg 100 mg PO DAILY Anxiety 02/21/18 03/01/23 tablet,extended release 24 hr hydroxychloroquine 200 mg tablet 200 mg PO DAILY Arthritis 03/15/20 03/01/23 d-mannose 500 mg capsule 500 mg PO DAILY , 07/31/22 03/01/23 Previous Rx's Medication Instructions Recorded ciprofloxacin HCl 500 mg tablet 500 mg PO BID 7 days #14 tabs 03/01/23 (Cipro) phenazopyridine 200 mg tablet 200 mg PO Q8H 2 days #6 tabs 03/01/23 (Pyridium) Allergies Allergy/AdvReac Type Severity Reaction Status Date / Time No Known Allergies Allergy Verified 02/27/23 08:19 [facility] Disclaimer: The information contained in this section may have been updated after the patient was seen, as this information can be updated by other users. Medical History (Updated 03/01/23 @ 13:07 by Eliseo Muse APRN) Anxiety Depression Hyperlipidemia Migraine Obesity (BMI 30.0-34.9) Perimenopausal vasomotor symptoms Recurrent UTI Urinary tract infection Vaginal dryness Weight gain, abnormal Surgical History History of cholecystectomy History of tubal ligation Hx of breast reduction, elective Family History Mother Cancer, Onset Age: 47 Breast Other Diabetes Social History Smoking Status: Never smoker alcohol intake: current substance use type: denies use current occupational status: employed Travel in the last 8 weeks: None household members: spouse housing: house current occupational exposures/hazards: No caffeine: Yes ROS Obtained: Yes All systems reviewed & no additional complaints except as documented Constitutional Constitutional: Reports system reviewed and no additional complaints, except as documented, Denies chills and Denies fever(s) Eyes Eyes: Denies eye disc
[2023-03-01 13:07] VITALS: BP 145/98; PULSE 77; RESP 20; TEMP 36.6; O2SAT 98
== END 2023-03-01 13:11 | disposition home or self-care (01) ==
PROVIDERS: Emergency Provider Nurse Practitioner Family; PCP Family Medicine
DX: N39.0 Urinary tract infection, site not specified (principal); M54.59 Other low back pain; E78.5 Hyperlipidemia, unspecified; F41.9 Anxiety disorder, unspecified; F32.A Depression, unspecified
CPT/HCPCS: 99212; 99214; G0463

== ENCOUNTER → 2023-04-07 08:09 | Outpatient (CLI) | payer BC, SELFPAY | PROVIDERS: PCP Nurse Practitioner Family; Visit Provider Nurse Practitioner Family | DX: N39.0 Urinary tract infection, site not specified (principal); B95.7 Other staphylococcus as the cause of diseases classified elsewhere | CPT/HCPCS: 87086; 87088; 87186 ==

== ENCOUNTER → 2023-04-18 09:48 | Outpatient (CLI) | payer BC, SELFPAY | PROVIDERS: Visit Provider Student in an Organized Health Care Education/Training Program | DX: N39.0 Urinary tract infection, site not specified (principal) | CPT/HCPCS: 87086 ==

== ENCOUNTER 2023-11-15 14:13 | Emergency (ER) | payer BC, SELFPAY ==
[2023-11-15 14:50] VITALS: BP 148/81; PULSE 91; RESP 18; TEMP 36.8; O2SAT 97; BMI 28.3
[2023-11-15 15:01] LABS: Apearance,Urine Cloudy (Clear); Bilirubin,Urine Negative (Negative); Blood, Urine Negative (Negative); Color,Urine Dark Yellow (Yellow); Glucose,Urine (UA) Negative (Negative); Ketones,Urine Negative (Negative); Protein,Urine Negative (Negative); Urobilinogen,Urine 0.2 EU/dl (0.2)
[2023-11-15 15:02] LABS: UTC Leukocyte Esterase,Urine 2+ (Negative); UTC Nitrate,Urine Negative (Negative)
--- NOTE | 2023-11-15 15:10 | EXP.UTC ---
Discharge Plan Disposition Patient Disposition: Home, Self-Care Condition: Good Prescriptions Prescriptions: New cephalexin 500 mg capsule 500 mg PO BID 7 Days Qty: 14 0RF methocarbamol 500 mg tablet 500 mg PO TID PRN (Reason: muscle spasm) Qty: 12 0RF No Action d-mannose 500 mg capsule 500 mg PO DAILY Veozah 45 mg tablet 45 mg PO DAILY Qty: 30 2RF desvenlafaxine succinate 100 MG tablet extended release 24 hr 100 mg PO DAILY pantoprazole 40 mg tablet,delayed release (DR/EC) 40 mg PO DAILY lisinopril-hydrochlorothiazide 1 EACH tablet 1 tab PO DAILY hydroxychloroquine 200 mg tablet 200 mg PO DAILY Referrals Follow up/Referrals: Provider,Referral, MD [Primary Care Provider] - See instructions Activity Restrictions/Add. Instructions Additional Instructions/Restrictions: *Ibuprofen hitesh 6 hours with meal as needed for pain/inflammation *Not additional anti-inflammatory like motrin, aleve, advil with the above amount of ibuprofen. You can still take Tylenol every 4 hours as needed if you need something else for pain *Ice 20 minutes every 2 hours for the first 48 hours after the initial injury followed by moist heat every 20 minutes 3-4 times a day to affected area *Muscle relaxer every 8 hours as needed for muscle spasms but remember, it WILL cause drowsiness You cannot take it and drive, operate machinery or care for small children. *Keep this area active, no movement leads to more stiffness, However take it easy and avoid heavy lifting pushing or pulling *Follow up with you family doctor if no improvement for further treatment *Increase fluids. Water not Soda or Tea *Start antibiotic immediately and be sure to take as ordered for the FULL length of time although you should start to see improvement over the next 48 hours *Be SURE to follow up anytime for new or worsening symptoms with your family doctor. AND in 48 hours for urine culture results with your family doctor, if you do not have a doctor then you may call back to the [facility] for urine culture results and further treatment. We do recommend that you choose and establish care with a Primary Care Physician. ?AND follow up with them ?in 10-14 days to repeat UA to ensure infection is resolved and blood no longer present *Be sure to let your PCP know that we sent urine cultures from the [facility] so they can follow up to ensure that you area the on the correct antibiotic Call your doctor office and make appointment for 48 hours (2 days from today) ?to follow up and get the results of your urine culture and further treatment Clinical Impressions Clinical Impression: UTI (urinary tract infection), Muscle spasm Instructions Patient Instructions: Low Back Pain (Alternative Therapy), DI for Urinary Tract Infection (UTI) Discharge ED Provider: Lucy Mayorga [facility] [place] HPI General Stated complaint: lower back pain Mode of Arrival: Ambulatory Source of Information: Patient Limitations: No Limitations Time Seen by Provider: 11/15/23 15:10 Description of Symptoms (Recalled from Triage Doc. by RN): Pt has right lower back pain. HEENT Symptoms (Recalled from RN notes): Yes Resp Symptoms (Recalled from RN notes): No Skin Symptoms (Recalled from RN notes): No MS Symptoms (Recalled from RN notes): No Functional Status (Recalled from RN notes): n/a History of Present Illness Provider Complaint: Patient states that she has hx of UTI's but yesterday she did alot of heavy lifting and packing to the storage shed and pushed mowed her yard Not sure if she may have pulled something in her back or may have UTI or both Denies urinary frequency or burning with urination Related Data Home Medications Medication Instructions Recorded Confirmed lisinopril 20 1 tab PO DAILY Hypertension 08/10/17 11/15/23 mg-hydrochlorothiazide 12.5 mg tablet desvenlafaxine succinate 100 mg 100 mg PO DAILY Anxiety 02/21/18 11/15/23 tablet,extended release 24 hr hydroxychloroquine 200 mg tablet 200 mg PO DAILY Arthritis 03/15/20 11/15/23 d-mannose 500 mg capsule 500 mg PO DAILY , 07/31/22 11/15/23 pantoprazole 40 mg tablet,delayed 40 mg PO DAILY 11/15/23 11/15/23 release Previous Rx's Medication Instructions Recorded fezolinetant 45 mg tablet (Veozah) 45 mg PO DAILY #30 tabs 03/20/23 cephalexin 500 mg capsule 500 mg PO BID 7 days #14 caps 11/15/23 methocarbamol 500 mg tablet 500 mg PO TID PRN muscle spasm #12 11/15/23 tabs Allergies Allergy/AdvReac Type Severity Reaction Status Date / Time No Known Allergies Allergy Verified 11/15/23 15:05 Worker's Comp Is this a Worker's Comp case?: No [facility] Disclaimer: The information contained in this section may have been updated after the patient was seen, as this information can be updated by other users. Medical History Anxiety Depression Hyperlipidemia Migraine Obesity (BMI 30.0-34.9) Perimenopausal vasomotor symptoms Recurrent UTI Urinary tract infection Vaginal dryness Weight gain, abnormal Surgical History History of cholecystectomy History of tubal ligation Hx of breast reduction, elective Family History Mother Cancer, Onset Age: 47 Breast Other Diabetes Social History Smoking Status: Never smoker alcohol intake: current alcohol intake frequency: holidays/special occasions only substance use type: denies use current occupational status: employed Travel in the last 8 weeks: None household members: spouse housing: house current occupational exposures/hazards: No caffeine: Yes ROS Obtained: Yes All systems reviewed & no additional complaints except as documented and Yes Systems reviewed as appropriate & no additional complaints except as documented Constitutional Constitutional: Reports system reviewed and no additional complaints, except as documented and Reports as per HPI Cardiovascular Cardiovascular: Reports system reviewed and no additional complaints, except as documented and Reports as per HPI Respiratory Respiratory: Reports system reviewed and no additional complaints, except as documented and Reports as per HPI Gastrointestinal Gastrointestingal: Reports system reviewed and no additional complaints, except as documented and as per HPI; Denies abdominal pain Genitourinary Female Genitourinary: Reports system reviewed and no additional complaints, except as documented, Reports as per HPI and Reports flank pain (right) Musculoskeletal Musculoskeletal: Reports system reviewed and no additional complaints, except as documented, Reports as per HPI and Reports back pain (right side low back pain with movement ) Physical Exam General General appearance: alert and in no apparent distress ENT ENT exam: Present mucous membranes moist Respiratory Respiratory exam: Present normal lung sounds bilaterally; Absent respiratory distress or wheezes Cardiovascular Cardiovascular exam: Present regular rate, normal rhythm and normal heart sounds Abdominal Exam Abdominal exam: Present soft and normal bowel sounds; Absent distention or tenderness Back Exam Back exam: Present tenderness and muscle spasm Back 1 view image: 1. reports tenderness with palpation, muscle spasm noted Neurological Exam Neurological exam: Present alert, oriented X3 and normal gait Medical Decision Making Oliverio Inquiry Pt receiving controlled substance: No Oliverio was queried for this patient: No Vital Signs: 11/15/23 14:50 Temperature 98.3 F Temperature Source Oral Pulse Rate [Right Radial] 91 H Respiratory Rate 18 Blood Pressure [Right Arm] 148/81 H Blood Pressure Mean [Right Arm] 103 Blood Pressure Source [Right Arm] Automatic Cuff Blood Pressure Position [Right Arm] Sitting 02 Sat by Pulse Oximetry 97 Oxygen Delivery Method Room Air Lab Data Lab results reviewed: Yes I reviewed the patient's lab results. Lab Results 11/15/23 14:56: Urine Color Dark yellow, Urine Appearance Cloudy, Urine pH 6.0, Ur Specific [place] 1.020, Urine Protein Negative, Urine Glucose (UA) Negative, Urine Ketones Negative, Urine Blood Negative, Urine Nitrate Negative, Urine Bilirubin Negative, Urine Urobilinogen 0.2, Ur Leukocyte Esterase 2+ A Orders (Tests/Meds): ORDERS Category Date Time Status Urine Culture Stat Micro 11/15/23 15:02 Ordered
[2023-11-15 15:26] VITALS: BP 148/81; PULSE 91; RESP 18; TEMP 36.8; O2SAT 97
== END 2023-11-15 15:26 | disposition home or self-care (01) ==
PROVIDERS: Emergency Provider Nurse Practitioner
DX: N39.0 Urinary tract infection, site not specified (principal); B96.89 Other specified bacterial agents as the cause of diseases classified elsewhere; M62.830 Muscle spasm of back
CPT/HCPCS: 81003; 87086; 99212; 99214; G0463

== ENCOUNTER 2023-11-26 12:10 | Outpatient (CLI) | payer BC, SELFPAY ==
--- NOTE | 2023-11-26 12:14 | XR_ITS ---
FINAL REPORT CLINICAL HISTORY: cough, wheezing COMPARISON: None FINDINGS: Two views of the chest were obtained. The heart size and pulmonary vascularity are within normal limits. The mediastinum is normal. There is bronchial wall thickening which is consistent with bronchitis. There is no pneumothorax. The bony thorax is intact. IMPRESSION: Bronchitis. Reviewed, Interpreted and Dictated by Sj Cevallos III, MD Transcribed by Maria Dolores Beth Authenticated and [facility]
== END 2023-11-26 23:59 | disposition home or self-care (01) ==
LOC: RAD 12:12
PROVIDERS: PCP Nurse Practitioner Family; Visit Provider Student in an Organized Health Care Education/Training Program
DX: R05.9 Cough, unspecified (principal); R06.2 Wheezing
CPT/HCPCS: 71046; 87635

== ENCOUNTER 2023-12-25 08:09 | Emergency (ER) | payer BC, SELFPAY ==
[2023-12-25 08:25] VITALS: BP 122/78; PULSE 92; RESP 16; TEMP 36.9; O2SAT 99; BMI 29.1
--- NOTE | 2023-12-25 08:44 | EXP.UTC ---
Discharge Plan Disposition Patient Disposition: Home, Self-Care Condition: Good Prescriptions Prescriptions: New levofloxacin 500 mg tablet 500 mg PO DAILY Qty: 7 0RF fluconazole 150 mg tablet 150 mg PO Q3D Qty: 2 0RF phenazopyridine [Pyridium] 200 mg tablet 200 mg PO Q8H PRN (Reason: pain) Qty: 6 0RF No Action lisinopril-hydrochlorothiazide 20-12.5 mg tablet 1 tab PO DAILY pantoprazole 40 mg tablet,delayed release (DR/EC) 40 mg PO DAILY desvenlafaxine succinate 100 mg tablet extended release 24 hr 100 mg PO DAILY Referrals Follow up/Referrals: Lashon Negro APRN [Primary Care Provider] - See instructions Clinical Impressions Clinical Impression: UTI (urinary tract infection) Instructions Patient Instructions: DI for Urinary Tract Infection (UTI) Discharge ED Provider: Addie Martines [facility] [place] General Stated complaint: poss uti Mode of Arrival: Ambulatory Source of Information: Patient Limitations: No Limitations Time Seen by Provider: 12/25/23 08:44 Description of Symptoms (Recalled from Triage Doc. by RN): PATIENT C/O LOWER BACK AND ABDOMEN PAIN X 4 DAYS, AND POSSIBLE YEAST INFECTION X 3 DAYS HEENT Symptoms (Recalled from RN notes): No Resp Symptoms (Recalled from RN notes): No Skin Symptoms (Recalled from RN notes): No MS Symptoms (Recalled from RN notes): No Functional Status (Recalled from RN notes): WNL History of Present Illness Provider Complaint: Lower abdominal pain, dysuria, frequency X 4 days. Now has vaginal itching. Chills but no fever. Mild nausea but no vomiting. Onset (ago): day(s) (4) Location: pelvis Relieving factors: none Exacerbating factors: none Associated symptoms: fever/chills Treatments prior to arrival: none Related Data Home Medications Medication Instructions Recorded Confirmed desvenlafaxine succinate 100 mg 100 mg PO DAILY 12/25/23 12/25/23 tablet,extended release 24 hr lisinopril 20 1 tab PO DAILY 12/25/23 12/25/23 mg-hydrochlorothiazide 12.5 mg tablet pantoprazole 40 mg tablet,delayed 40 mg PO DAILY 12/25/23 12/25/23 release Previous Rx's Medication Instructions Recorded fluconazole 150 mg tablet 150 mg PO Q3D 2 doses #2 tabs 12/25/23 levofloxacin 500 mg tablet 500 mg PO DAILY #7 tabs 12/25/23 phenazopyridine 200 mg tablet 200 mg PO Q8H PRN pain 6 doses #6 12/25/23 (Pyridium) tabs Allergies Allergy/AdvReac Type Severity Reaction Status Date / Time No Known Allergies Allergy Verified 11/26/23 11:35 Worker's Comp Is this a Worker's Comp case?: No [facility] Disclaimer: The information contained in this section may have been updated after the patient was seen, as this information can be updated by other users. Medical History Obesity (BMI 30.0-34.9) Weight gain, abnormal Perimenopausal vasomotor symptoms Vaginal dryness Recurrent UTI Depression Anxiety Urinary tract infection Migraine Hyperlipidemia Surgical History Hx of breast reduction, elective History of cholecystectomy History of tubal ligation Family History Mother Cancer, Onset Age: 47 Breast Other Diabetes Social History Smoking Status: Never smoker alcohol intake: current alcohol intake frequency: holidays/special occasions only substance use type: denies use current occupational status: employed Travel in the last 8 weeks: None household members: spouse housing: house current occupational exposures/hazards: No caffeine: Yes ROS Obtained: Yes All systems reviewed & no additional complaints except as documented Constitutional Constitutional: Reports chills Genitourinary Female Genitourinary: Reports dysuria Physical Exam General General appearance: alert and in no apparent distress Head Head exam: atraumatic, normocephalic and normal inspection Eye Eye exam: Present normal appearance, PERRL and EOMI ENT ENT exam: Present normal exam, normal oropharynx, mucous membranes moist, TM's normal bilaterally and normal external ear exam Neck Neck exam: Present normal inspection, full ROM and trachea midline; Absent meningismus or lymphadenopathy Chest Chest inspection: Present normal inspection and symmetric chest wall rise; Absent tenderness Respiratory Respiratory exam: Present normal lung sounds bilaterally; Absent respiratory distress Cardiovascular Cardiovascular exam: Present regular rate and normal rhythm; Absent JVD Abdominal Exam Abdominal exam: Present soft and normal bowel sounds; Absent distention, tenderness or guarding Extremities Exam Extremities exam: Present normal inspection, full ROM and normal capillary refill; Absent calf tenderness Back Exam Back exam: Present normal inspection; Absent tenderness Neurological Exam Neurological exam: Present alert and oriented X3 Psychiatric Psychiatric exam: Present normal affect and normal mood Skin Skin exam: Present warm, dry, intact and normal color Lymphatic Lymphatic Findings: no adenopathy Medical Decision Making Oliverio Inquiry Pt receiving controlled substance: No Vital Signs: 12/25/23 08:25 Temperature 98.4 F Temperature Source Oral Pulse Rate [Left Brachial] 92 H Respiratory Rate 16 Blood Pressure [Left Arm] 122/78 Blood Pressure Mean [Left Arm] 92 Blood Pressure Source [Left Arm] Automatic Cuff Blood Pressure Position [Left Arm] Sitting 02 Sat by Pulse Oximetry 99 Oxygen Delivery Method Room Air Lab Data Lab results reviewed: Yes I reviewed the patient's lab results. Orders (Tests/Meds): ORDERS Category Date Time Status Urine Culture Stat Micro 12/25/23 08:42 Ordered
[2023-12-25 08:47] LABS: Apearance,Urine Cloudy (Clear); Color,Urine Yellow (Yellow); PH,Urine 5.5 (5.0-8.5); Specific Gravity, Urine >= 1.030 (1.005-1.030)
[2023-12-25 08:50] LABS: Bilirubin,Urine Negative (Negative); Blood, Urine Trace (Negative); Glucose,Urine (UA) Negative (Negative); Ketones,Urine Negative (Negative); Protein,Urine Negative (Negative); UTC Leukocyte Esterase,Urine 1+ (Negative); UTC Nitrate,Urine Negative (Negative); Urobilinogen,Urine 0.2 EU/dl (0.2)
[2023-12-25 08:51] VITALS: BP 122/78; PULSE 92; RESP 16; TEMP 36.9; O2SAT 99
== END 2023-12-25 08:59 | disposition home or self-care (01) ==
PROVIDERS: Emergency Provider Physician Assistant; PCP Nurse Practitioner Family
DX: N39.0 Urinary tract infection, site not specified (principal); B96.29 Other Escherichia coli [E. coli] as the cause of diseases classified elsewhere; R10.30 Lower abdominal pain, unspecified; R30.0 Dysuria; R35.0 Frequency of micturition
CPT/HCPCS: 81003; 87086; 87088; 87186; 99212; 99214; G0463

== ENCOUNTER 2024-01-12 18:00 | Outpatient (CLI) | payer BC, SELFPAY | END 2024-01-12 23:59 | disposition home or self-care (01) | LOC: LAB.DROPOF 01-13 08:17 | PROVIDERS: PCP Student in an Organized Health Care Education/Training Program; Visit Provider Student in an Organized Health Care Education/Training Program | DX: M54.50 Low back pain, unspecified (principal) | CPT/HCPCS: 87086 ==

== ENCOUNTER 2024-01-19 10:24 | Outpatient (CLI) | payer BC, SELFPAY ==
--- NOTE | 2024-01-19 10:26 | XR_ITS ---
FINAL REPORT CLINICAL HISTORY: low back pain..NO TRAUMA COMPARISON: None FINDINGS: AP and lateral views of the lumbar spine were obtained. There is no prior exam for comparison. There is no acute fracture or malalignment. Vertebral body height is preserved. Mild and moderate degenerative changes present. No acute paraspinal abnormality. Postoperative changes noted in the right upper quadrant. IMPRESSION: Mild and moderate degenerative change present in the lumbar spine. Reviewed, Interpreted and Dictated by Sj Cevallos III, MD Transcribed by Natalia Aguillon Authenticated and [facility]
== END 2024-01-19 23:59 | disposition home or self-care (01) ==
LOC: RAD 10:25
PROVIDERS: PCP Nurse Practitioner Family; Visit Provider Student in an Organized Health Care Education/Training Program
DX: M54.50 Low back pain, unspecified (principal)
CPT/HCPCS: 72100

== ENCOUNTER 2024-03-09 16:06 | Outpatient (CLI) | payer BC, SELFPAY ==
--- NOTE | 2024-03-09 16:10 | XR_ITS ---
PROCEDURE INFORMATION: Exam: XR Right Foot Exam date and time: 03/09/2024 4:32 PM Age: 48 years old Clinical indication: Pain; Foot; Right; Additional info: Right foot pain TECHNIQUE: Imaging protocol: Radiologic exam of the right foot. Views: 3 or more views. COMPARISON: CR XR FOOT WT BEARING RT 3V 03/15/2020 3:06 PM FINDINGS: Bones/joints: No fractures, dislocations, or focal bone lesions. Soft tissues: No masses, soft tissue gas, or radiopaque foreign bodies. IMPRESSION: No acute findings in the RIGHT foot.
[2024-03-09 18:13] LABS: Basophils # 0.1 K/mm3 (0-0.2); Basophils % 1.1 % (0.1-2.0); Eosinophils # 0.2 K/mm3 (0.0-0.4); Eosinophils % 2.7 % (0.1-12.0); Hematocrit 36.8 % (37.0-47.0); Hemoglobin 11.5 g/dL (12.2-16.2); Lymphocytes # 2.2 K/mm3 (0.7-4.5); Lymphocytes % 32.6 % (10-50); Mean Corpuscular HGB Conc 31.3 g/dL (31.8-35.4); Mean Corpuscular Hemoglobin 25.8 pg (27.0-31.2); Mean Corpuscular Volume 82.3 fl (81-99); Mean Platelet Volume 8.6 fl (7.4-10.4); Monocytes # 0.6 K/mm3 (0.1-1.0); Monocytes % 8.3 % (1.7-9.3); Neutrophils # 3.7 K/mm3 (1.8-7.8); Neutrophils % 55.2 % (37.0-80.0); Platelet Count 370 K/mm3 (142-424); Red Blood Count 4.47 M/mm3 (4.20-5.40); Red Cell Distribution Width 15.4 % (11.5-17.5); White Blood Count 6.6 K/mm3 (4.8-10.8)
[2024-03-09 19:32] LABS: Alanine Aminotransferase 17 U/L (12-78); Albumin Level 3.9 g/dl (3.5-5.0); Albumin/Globulin Ratio 1.4 (1.1-1.8); Alkaline Phosphatase 48 U/L (38-126); Anion Gap 10.7 mEq/L (5-15); Aspartate Amino Transferase 22 U/L (14-36); Bilirubin,Total 0.4 mg/dl (0.2-1.3); Blood Urea Nitrogen 14 mg/dl (7-17); Carbon Dioxide 25 mmol/L (22.0-30.0); Chloride 105 mmol/L (98-107); Estimated Glomerular Filt Rate 67 ml/min (>60); GFR (African American) 81 ML/MIN (>60); Globulin 2.8 g/dL (1.3-3.2); Glucose 94 mg/dl (74-100); Potassium 3.7 mmoL/L (3.5-5.1); Sodium 137 mmol/L (136-145); Total Protein,Serum 6.7 g/dl (6.3-8.2); Uric Acid 5.3 mg/dl (2.5-6.2)
== END 2024-03-09 23:59 | disposition home or self-care (01) ==
LOC: LAB.DROPOF 16:07
PROVIDERS: PCP Nurse Practitioner Family; Visit Provider Nurse Practitioner Family
DX: M79.671 Pain in right foot (principal); M79.674 Pain in right toe(s)
CPT/HCPCS: 73630; 80053; 84550; 85025

== ENCOUNTER 2024-04-25 13:39 | Outpatient (CLI) | payer BC, SELFPAY ==
--- NOTE | 2024-04-25 13:43 | XR_ITS ---
FINAL REPORT CLINICAL HISTORY: L foot pain COMPARISON: 03/15/2020 FINDINGS: LEFT FOOT: Three views of the left foot were obtained. There is no acute fracture or dislocation. Mild degenerative changes are noted. A plantar calcaneal spur is identified. There is no soft tissue abnormality. IMPRESSION: Mild degenerative changes without acute bony abnormality. Reviewed, Interpreted and Dictated by Sj Cevallos III, MD Transcribed by Susy Pinto Authenticated and [facility]
== END 2024-04-25 23:59 | disposition home or self-care (01) ==
LOC: RAD 13:40
PROVIDERS: PCP Student in an Organized Health Care Education/Training Program; Visit Provider Student in an Organized Health Care Education/Training Program
DX: M79.672 Pain in left foot (principal)
CPT/HCPCS: 73630

== ENCOUNTER 2024-05-31 13:15 | Outpatient (CLI) | payer BC, SELFPAY | END 2024-05-31 23:59 | disposition home or self-care (01) | LOC: LAB.DROPOF 06-01 10:43 | PROVIDERS: PCP Student in an Organized Health Care Education/Training Program; Visit Provider Student in an Organized Health Care Education/Training Program | DX: R39.9 Unspecified symptoms and signs involving the genitourinary system (principal) | CPT/HCPCS: 87086 ==

== ENCOUNTER 2024-11-07 12:23 | Emergency (ER) | payer BC, SELFPAY ==
[2024-11-07] VITALS (11 sets, daily range): BP systolic 134–170; BP diastolic 85–130; PULSE 74–96; RESP 16–19; TEMP 36.9–37; O2SAT 98–100; BMI 29.2
[2024-11-07 12:33] LABS: Microscopic, Urine URINE MICROSCOPIC (MICROSCOPIC)
[2024-11-07 12:37] LABS: Bilirubin,Urine Negative (Negative); Blood, Urine Negative (Negative); Color,Urine YELLOW (Yellow); Glucose,Urine (UA) Negative (Negative); Ketones,Urine Negative (Negative); Leukocyte Esterase,Urine 2+ (Negative); Nitrate,Urine Negative (Negative); Protein,Urine Negative (Negative); Specific Gravity, Urine 1.025 (1.005-1.030); Urobilinogen,Urine 0.2 EU/dl (0.2)
--- NOTE | 2024-11-07 12:38 | CT_ITS ---
FINAL REPORT TECHNIQUE: Thin section axial images are obtained through the abdomen and pelvis after intravenous contrast. Reconstruction images were obtained from the axial data. Exam was performed using dose reduction techniques. This study was performed with techniques to keep radiation doses as low as reasonably achievable (ALARA). Individualized dose reduction techniques using automated exposure control or adjustment of mA and/or kV according to the patient's size were employed. CLINICAL HISTORY: diffuse abd pain, ttp, bloody diarrhea FINDINGS: LUNG BASES: Lung bases are clear. Heart size is normal. LIVER: Homogeneous. There is mild biliary ductal dilatation, likely postcholecystectomy change. No focal lesion. GALLBLADDER/BILIARY SYSTEM: Gallbladder is surgically absent. SPLEEN: Unremarkable. PANCREAS: Unremarkable. ADRENALS: Unremarkable. KIDNEYS/URETERS/BLADDER: No hydronephrosis, renal mass, or renal stone. Unremarkable urinary bladder. GI TRACT: No small bowel obstruction or dilatation. Normal appendix. There is long segment wall thickening of the distal colon, with surrounding inflammatory change consistent with colitis. Favor inflammatory or infectious. PELVIC ORGANS: Unremarkable for age. LYMPH NODES/RETROPERITONEUM/MESENTERY: No lymphadenopathy. No abdominal aortic aneurysm. ABDOMINAL WALL: The abdominal wall is intact. FREE FLUID: Free fluid is present in the pelvis, likely physiologic. BONES: No acute osseous abnormality. IMPRESSION: Mild biliary ductal dilatation is present, likely postcholecystectomy change. Long segment wall thickening of the distal colon with surrounding inflammatory change consistent with colitis. This most likely represents infectious or inflammatory colitis. Small amount of free fluid likely physiologic. Reviewed, Interpreted and Dictated by Ashley Williamson MD Transcribed by Natalia Aguillon Authenticated and [facility]
--- OUTSIDE RECORDS SUMMARY | 2024-11-07 12:39 | XMS_ITS | Continuity of Care Document ---
Author Organization [place] - [place] & [place], [facility] Address [address] [address] Care Team Providers Care Apartment Rental Clerk Name Role Phone [facility] Primary Care Provider [phone] Assessment Encounter Date Assessment Date Assessment LastModified by Organization Details LastModified Time 09/09/2024 09/09/2024 Ms. Sanderson is a 49-year-old female with history of scleroderma, GERD with hiatal hernia, Chatterjee's esophagus with prior grade C reflux esophagitis with ulceration at the GE junction and peptic stricture. She underwent hiatal hernia repair and partial fundoplication 08/2023. She experienced post-operative dysphagia of solids as well as recent recurrence of significant heartburn/regurgi tation and was found to have hernia recurrence and slippage of the fundoplication. She underwent surgical revision last month. Her Reflux issues and dysphagia have resolved. She reports some post-prandial left shoulder pain, likely referred. 1) ?esophageal spasms: Prior manometry testing was normal. She has periodic atypical chest pain that is improved with hyoscyamine. 2) Chatterjee's esophagus: She will try to decrease the Pantoprazole to 40 mg once daily following her revised reflux surgery. I recommend she continue that dose if tolerated due to history of BE. -Repeat EGD 04/2027 [email or web address] Not available 09/09/2024 16:24:01 Plan of Treatment Reminders Order Date Submit Date Provider Last Modified By Organization Details Last Modified Time Details Appointments None recorded. Lab None recorded. Referral None recorded. Procedures None recorded. Surgeries None recorded. Imaging None recorded. Medication Orders hyoscyamine 0.125 mg sublingual tablet 2024 025 [facility], [address], [address], [place], [address], 5 11:50:40 Patient TargetsNo targets recorded. Patient InstructionsNo instructions recorded. Reason for Referral None Reported. Problems Name Problem SNOMED Code Status Onset Date Resolution Date Notes Provider Name and Address Organization Details Recorded Time Hiatal hernia with gastroesophag eal reflux 045523266 Active 2023 Adriel Aguillon PA-C [address], [place], [address] , [place] [facility] [place] 4 20:50:21 Atypical chest pain 138965170 Active [address], [place], [address] , [place] [facility] 5 11:31:03 Chatterjee's esophagus 334793286 Active [address], [place], [address] , [place] [facility] & [place] 5 11:31:03 Gastroesophag eal reflux disease without esophagitis 520088369 Active 2022 Adriel Aguillon PA-C [address], [place], [address] , [place] [facility] [place] 3 15:04:00 Chronic idiopathic constipation 65543249 Active 2022 Adriel Aguillon PA-C [address], [place], [address] , [place] [facility] [place] 3 15:05:10 Systemic sclerosis 62689835 Active [address], [place], [address] , [place] [facility] 3 15:06:46 Esophageal dysphagia 67642030 Active 2022 Adriel Aguillon PA-C [address], [place], [place], [address] [place] [address] , [place] [facility] & [place] 3 15:07:32 Hiatal hernia 42629834 Active 2023 Roberto Williamson DNP, FILM OR VIDEOTAPE EDITOR, [employer]-C [address], [place], [place], [address] [place] [address] , [place] [facility] & [place] 4 11:23:12 Pre-surgery evaluation Active 2023 Roberto Williamson DNP, FILM OR VIDEOTAPE EDITOR, [employer]OC[employer]ATE-C [address], [place], [address] [place] [address] , [place] [facility] & [place] 4 11:24:22 Anxiety 78795050 Active 2023 Roberto Williamson DNP, IWONA, [employer]ATE-C [address], [place], [address] [place] [address] , [place] [facility] & [place] 4 11:49:03 Depressive disorder 18922145 Active 2023 Roberto Williamson DNP, FILM OR VIDEOTAPE EDITOR, [employer]OC[employer]ATE-C [address], [place], [address] [place] [address] , [place] [facility] & [place] 4 11:49:07 Essential hypertension 21160879 Active 2023 Roberto Williamson DNP, FILM OR VIDEOTAPE EDITOR, [employer] ASSOCIATE-C [address], [place], [address] [place] [address] , [place] [facility] & [place] 4 11:49:13 Rheumatoid arthritis 38617639 Active 2023 Roberto Williamson DNP, FILM OR VIDEOTAPE EDITOR, [employer]OC[employer]ATE-C [address], [place], [address] [place] [address] , [place] [facility] & [place] 4 11:49:20 Regurgitation of gastric content 88384844 Active 2023 Adriel Aguillon PA-C [address], [place], [address] [place] [address] , [place] [facility] 18:48:52 Problem Notes None recorded. Procedures Surgical History Date Name Laterality Status Provider Name and Address Organization Details Recorded Time 024 fundoplication completed Rosalie Naranjo [place] 08/03/2024 13:14:53 022 completed Deja Dolandwell [place] [facility] 09/09/2024 11:34:46 022 Date of Last Pap Smear completed Deja Thompson [place] 09/09/2024 11:34:46 015 Gastrointestinal Surgery completed Deja Thompson [place] [facility] & [place] 09/09/2024 11:35:02 013 Breast Surgery completed Deja Thompson [place] [facility] [facility] & [place] 09/09/2024 11:35:02 Cholecystectomy completed Roberto Arevalo, MARBELLA, FILM OR VIDEOTAPE EDITOR, [employer] SAL[employer] ASSOCIATE-C [address] [facility], [place], [address], [place] [facility] & [place] 07/28/2023 11:11:17 Breast reduction completed Roberto Williamson, MARBELLA, FILM OR VIDEOTAPE EDITOR, [employer] SAL[employer] ASSOCIATE-C [address] [facility], [place], [address], [place] [facility] & [place] 07/28/2023 11:11:09 Tubal Ligation completed Rosalie Naranjo [place] [facility] [facility] & [place] 07/06/2024 09:27:55 fundoplication completed Rosalie Naranjo [place] [facility] 07/06/2024 09:28:07 Imaging Results None recorded. Procedure Notes None recorded. Medical Equipment None Reported. Allergies No known drug allergies Medications Name Sig Start Date Stop Date Status Note LastModified by Organization Details LastModified Time Miralax 17 gram oral powder packet Take 5 packets 3 times a day by oral route as directed for 1 day. 07/28 completed Not Available Not Available Not Available Miralax 17 gram/dose oral powder Take 17 g every day by oral route for 30 days. 2023 active Not Available Not Available Not Avai lable methocarbam ol 500 mg tablet TAKE 1 TABLET BY MOUTH THREE TIMES DAILY NEEDED FOR MUSCLE SPASM 07/06 completed Not Available Not Available Not Available promethazin e-DM 6.25 mg-15 mg/5 mL oral syrup 07/06 completed Not Available Not Available Not Available nystatin 100,000 unit/mL oral suspension 07/28 completed Not Available Not Available Not Available lisinopril 20 mg-hydrochl orothiazide 12.5 mg tablet active Not Available Not Available Not Available azithromyci n 250 mg tablet 07/06 completed Not Available Not Available Not Available tizanidine 4 mg tablet 07/28 completed Not Available Not Available Not Available fluconazole 150 mg tablet TAKE 1 TABLET EVERY 3 DAYS FOR 2 DOSES 07/06 completed Not Available Not Available Not Available phenazopyri dine 200 mg tablet TAKE 1 TABLET BY MOUTH EVERY 8 HOURS NEEDED FOR PAIN 07/06 completed Not Available Not Available Not Available ondansetron HCl 4 mg tablet 07/28 completed Not Available Not Available Not Available prednisone 20 mg tablet 07/06 completed Not Available Not Available Not Available allopurinol 100 mg tablet TAKE 1 TABLET BY MOUTH ONCE DAILY 07/06 completed Not Available Not Available Not Available ciprofloxac in 500 mg tablet 07/06 completed Not Available Not Available Not Available sulfamethox azole 800 mg-trimetho prim 160 mg tablet 07/28 completed Not Available Not Available Not Available tramadol 50 mg tablet 07/28 completed Not Available Not Available Not Available triamcinolo ne acetonide 0.1 % topical cream active Not Available Not Available Not Available potassium chloride ER 20 mEq tablet,exte nded release(par t/cryst) 09/21 completed Not Available Not Available Not Available metoclopram maxx 5 mg tablet active Not Available Not Available Not Available cephalexin 500 mg capsule TAKE 1 CAPSULE BY MOUTH TWICE DAILY FOR 7 DAYS 07/06 completed Not Available Not Available Not Available pantoprazol e 40 mg tablet,rodrigo yed release Take 1 tablet twice a day by oral route for 30 days. active Not Available Not Available No t Available hyoscyamine 0.[address] 1 tablet every 4 hours by sublingua l route as needed for 30 days, for esophagea l spasm. active Not Available Not Available No t Available gabapentin 300 mg capsule Take 1 capsule 3 times a day by oral route for 7 days. 08/03 completed Not Available Not Available Not Available lisinopril 20 mg-hydrochl orothiazide 25 mg tablet active Not Available Not Available Not Available hydroxychlo roquine 200 mg tablet TAKE 1 TABLET BY MOUTH TWICE DAILY active Not Available Not Available No t Available levofloxaci n 500 mg tablet TAKE 1 TABLET BY MOUTH ONCE DAILY 07/06 completed Not Available Not Available Not Available methylpredn isolone 4 mg tablets in a dose pack 07/28 completed Not Available Not Available Not Available colchicine 0.6 mg tablet TAKE 1 TABLET BY MOUTH TWICE DAILY 07/06 completed Not Available Not Available Not Available celecoxib 100 mg capsule Take 1 capsule twice a day by oral route for 7 days. 08/03 completed Not Available Not Available Not Available bromphenira mine-pseudo ephedrine-D M 2 mg-30 mg-10 mg/5 mL oral syrup 07/28 completed Not Available Not Available Not Available ondansetron 4 mg disintegrat ing tablet Place 1 tablet twice a day by transling ual route as needed, for post op nausea. active Not Available Not Available No t Available naproxen 500 mg tablet 07/06 completed Not Available Not Available Not Available nitrofurant oin monohydrate /macrocryst als 100 mg capsule 07/28 completed Not Available Not Available Not Available desvenlafax ine succinate ER 100 mg tablet,exte nded release 24 hr active Not Available Not Available Not Available Linzess 145 mcg capsule Take 1 capsule by mouth once daily on an empty stomach, 30 minutes before food or coffee, 30 days 07/28 completed Not Available Not Available Not Available potassium chloride ER 20 mEq tablet,exte nded release take one tablet twice a day x 5 days, then take one tablet daily x 5 days 07/06 completed Not Available Not Available Not Available Voquezna 10 mg tablet Take 1 tablet every day by oral route for 30 days. active Not Available Not Available No t Available Vitals Date Recorded Body height Body mass index (BMI) Body weight Body temperature Oxygen saturation Oxygen saturation in Arterial blood by Pulse oximetry Heart rate Heart rate Systolic blood pressure Diastolic blood pressure Provider Name and Address Organization Details Last Updated DateTime 160.02 cm 29.3 kg/m2 21148.8 2 g 96.7 [degF] 99 % 99 % 75 /min 78 /min 159 mm[Hg] 88 mm[Hg] Deja Thompson [facility] & [place] 11:35:31 Social History Question Answer Notes LastModified by Organizat ion Details LastModified Time Tobacco Smoking Status Never Smoker Rosalie Naranjo [facility], [facility] & [place] 07/28/2023 10:55:50 Do You Have An Advance Directive? No [email or web address] Information not available 09/09/2024 What Is Your Level Of Alcohol Consumption? Occasional [email or web address] Information not available 06/25/2023 Are You Blind Or Do You Have Difficulty Seeing? 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 06/22/2023 Information not available 09/09/2024 Are You Passively Exposed To Smoke? No [email or web address] Information not available 09/09/2024 How Much Tobacco Do You Smoke? No [email or web address] Information not available 09/09/2024 Do You Feel Stressed (tense, Restless, Nervous, Or Anxious, Or Unable To Sleep At Night)? [id number] Information not available 09/09/2024 Do You Use Any Illicit Or Recreational Drugs? No Information not available 06/25/2023 Has Tobacco Cessation Counseling Been Provided? No Information not available 08/21/2023 Do You Or Have You Ever Used Any Other Forms Of Tobacco Or Nicotine? No Information not available 08/21/2023 Sex: Female Functional Status Question Answer Note LastModified by Organization D etails LastModified Time What is your exercise level? Moderate [email or web address] Information not available 09/09/2024 Mental Status None recorded. Family History Relationship Description Onset Age of this Age Resolved Age Notes LastModified by Organization Details LastModified Time Mother Headache pt. added direct ly (06/22) [email or web address] Not available 06/22/2023 12:33:42 Mother Hypertensive disorder pt. added direct ly (06/22) [email or web address] Not available 06/22/2023 12:33:58 Father Disorder of endocrine system pt. added direct ly (06/22) [email or web address] Not available 06/22/2023 12:33:48 Father Hypertensive disorder pt. added direct ly (06/22) [email or web address] Not available 06/22/2023 12:33:58 Medical History Condition Response Autoimmune disease Y Arthritis Y Reflux/GERD Y Rheumatoid Arthritis Y Headaches Y Hypertension Y Gynecological History Statement/Question Response Abnormal Pap Y 07/03/2022 Flow Moderate Date of LMP 06/06/2023 Sexually Active? Y Menses Monthly Y Duration of Flow (days) 5 Date of Last Pap Smear 07/28/2021 Current Control Method Tubal Ligat ion Age at Menarche 9 Obstetrics History GPAL:G 0 P 0 0 0 0 Past Encounters Encounter ID Performer Location Encounter Start Date Encounter Closed Date Diagnosis/Indication Diagnosis SNOMED-CT Code Diagnosis ICD10 Code Diagnosis Note [id number] Adriel Aguillon PA-C [facility] [address] [address] 09/09/2024 11:23:16 09/09/2024 12:24:00 Esophageal dysphagia 35263037 R13.19 Regurgitat ion of gastric content 63720780 R11.10 History of fundoplication 246594565 Z98.890 Patient with recurrent upper GI symptoms, esophagram shows possible partial dehiscence of wrap and a small hiatal hernia. Will refer to surgery for further recommenda tions. Hiatal her anne with gastroesophageal reflux 541979727 K21.9 Chatterjee's esophagus 3029 40580 K22.70 Atypical chest pain 1025 20081 R07.89 Health Concerns Section Related Observation LastModified by Organization Detai ls LastModified Time None Recorded Concern Status LastModified by Organization Details LastModified Time None Recorded Payers Encounter Date Sequence Insurance Name Policy Number Policy Cornejo Covered Member ID Cornejo Member ID Guarantor Name 09/09/2024 1 LUIS-PA: [employer] [place] [id number] Daysi Sanderson [id number] Daysi Sanderson Notes Date Note Type Note Provider Name and Address Organization Details Recorded Time 09/09/2024 text/html PREVIOUS (08/21/23 ): Ms. Sanderson is a very pleasant 49-year-old female with history of GERD, Chatterjee's esophagus, constipation, colon polyps, scleroderma, and prior partial fundoplication 08/2023. She had recent worsening reflux, dysphagia and underwent EGD and esophagram that were indicative of slipped fundoplication with recurrence of hiatal hernia. She underwent revision of a hiatal hernia and revision of her partial fundoplication by Dr. Buchanan on 07/19/2024.Today, she complains of continued sensation of esophageal spasms and pain in her left shoulder when eating. Hyoscyamine has been helpful for the esophageal discomfort. She recently switched back to pantoprazole 40 mg twice daily due to insurance no longer providing coverage for Voquezna. This seems to be working well for her. Her shoulder pain is worse after eating larger meals. She feels she is managing well overall at this time otherwise. Adriel Aguillon PA-C [address], [place], [address], [facility] - [place] & [place] 09/09/2024 16:24:14 OBGyn Episode No OBEpisode recorded.
[2024-11-07 12:42] LABS: Appearance,Urine Slightly Cloudy (Clear)
[2024-11-07] MEDS: LACTATED RINGERS 1000ML 1,000 ML 999 ML IV (12:53)
--- NOTE | 2024-11-07 13:02 | HMH.EDGENADL ---
Discharge Plan Disposition Patient Disposition: Home, Self-Care Prescriptions Prescriptions: No Action hydroxychloroquine 200 mg tablet 200 mg PO BID Patient Comments: TAKE 1 TABLET BY MOUTH TWICE DAILY Voquezna 10 mg tablet 10 mg PO ONCE lisinopril-hydrochlorothiazide 20-12.5 mg tablet 1 tab PO DAILY desvenlafaxine succinate 100 mg tablet extended release 24 hr 100 mg PO DAILY Referrals Follow up/Referrals: Ludin Edwards MD [Primary Care Provider] - See instructions Clinical Impressions Clinical Impression: Bloody diarrhea Instructions Patient Instructions: DI for Gastrointestinal Bleeding Print Language Print Language: Lebanese Discharge ED Provider: Christiano Sanchez Adult HPI <Carmen Myers MD - Last Filed: 11/07/24 13:04> General Chief complaint: GI Bleed Stated complaint: Diarr. Blood in stool Time Seen by Provider: 11/07/24 12:29 Mode of Arrival: Ambulatory Source of Information: Patient Description of Symptoms (Recalled from ER Triage Doc. by RN): pt presents to ED from [facility] for further evaluation. pt reports yesterday she began to have diarrhea and abd cramping, pt reports today she had diarrhea with bright red blood. History of Present Illness HPI narrative: Patient is a 49-year-old who was referred to our emergency department from an urgent treatment clinic where she was being evaluated for bloody diarrhea. Patient states that she has had crampy abdominal discomfort and bloody diarrhea over the last several days. She had a normal colonoscopy within the last year. No history of diverticulitis or colitis. No fevers or chills. No traveling outside of the country. No recent hospitalizations or antibiotic use or healthcare exposures. Urine output has been normal. No bleeding or bruising elsewhere. She is not on any anticoagulants or antiplatelet agents. Related Data Home Medications ?Medication ?Instructions ?Recorded ?Confirmed desvenlafaxine succinate 100 mg 100 mg PO DAILY 12/25/23 11/07/24 tablet,extended release 24 hr lisinopril 20 1 tab PO DAILY 12/25/23 11/07/24 mg-hydrochlorothiazide 12.5 mg tablet hydroxychloroquine 200 mg tablet 200 mg PO BID 01/12/24 11/07/24 vonoprazan 10 mg tablet (Voquezna) 10 mg PO ONCE 04/27/24 11/07/24 Allergies Allergy/AdvReac Type Severity Reaction Status Date / Time No Known Allergies Allergy Verified 11/07/24 11:34 PFS <Carmen Myers MD - Last Filed: 11/07/24 13:04> PFS Disclaimer: The information contained in this section may have been updated after the patient was seen, as this information can be updated by other users. Medical History Foot pain Otitis externa Pain of both heels UTI (urinary tract infection) Muscle spasm Obesity (BMI 30.0-34.9) Weight gain, abnormal Perimenopausal vasomotor symptoms Vaginal dryness Recurrent UTI Depression Anxiety Urinary tract infection Migraine Hyperlipidemia Surgical History Hx of breast reduction, elective History of cholecystectomy History of tubal ligation Family History Mother Cancer, Onset Age: 47 Breast Other Diabetes Social History Smoking Status: Never smoker alcohol intake: current alcohol intake frequency: holidays/special occasions only substance use type: denies use current occupational status: employed Travel in the last 8 weeks: None household members: spouse housing: house current occupational exposures/hazards: No caffeine: Yes Have you lived/traveled outside US in past 30 days?: No Contact w/someone who lives/traveled outside US past 30 days?: No Exposure to someone with infectious disease in past 14 days?: No Do you have a fever (greater than 100.4 F or 38 C)?: No Have you tested positive for COVID-19: No Exposed to someone with COVID-19 in past 14 days?: No Do you have a sore throat?: No Do you have a cough?: No Do you have any weakness?: No Do you have any diarrhea?: Yes Are you experiencing any unusual bleeding?: No Do you have any muscle aches/pain?: No Do you have any abdominal pain?: No Are you experiencing loss of taste or smell?: No Other Medical History Have you received the Flu Vaccine for this season: No Have you received the Pneumonia Vaccine: No <Christiano Sanchez MD - Last Filed: 11/07/24 15:50> ROS Obtained: Yes All systems reviewed & no additional complaints except as documented Physical Exam <Carmen Myers MD - Last Filed: 11/07/24 13:04> Abdominal Exam Abdominal exam: Present soft and tenderness (Diffuse abdominal tenderness no rebound or guarding); Absent distention <Christiano Sanchez MD - Last Filed: 11/07/24 15:50> General General appearance: alert Respiratory Respiratory exam: Absent respiratory distress Cardiovascular Cardiovascular exam: Present regular rate Neurological Exam Neurological exam: Present alert Medical Decision Making <Carmen Myers MD - Last Filed: 11/07/24 13:04> Medical Records Screening: Per USPSTF and CDC recommendations, given the prevalence of disease in our region, it is our hospital?s policy to screen for HIV and viral Hepatitis for all patients aged 18 and over and those with ongoing risk factors. Vital Signs: 11/07/24 12:30 11/07/24 12:32 11/07/24 13:36 Temperature 98.4 F Temperature Source Oral Pulse Rate 95 H 84 Pulse Rate [Left Radial] 96 H Respiratory Rate 19 Blood Pressure 141/95 H 146/88 H Blood Pressure [Right Arm] 149/93 H Blood Pressure Mean [Right Arm] 111 Blood Pressure Source [Right Arm] Automatic Cuff Blood Pressure Position [Right Arm] Supine 02 Sat by Pulse Oximetry 100 99 98 Oxygen Delivery Method Room Air Room Air Room Air 11/07/24 13:45 11/07/24 14:00 Temperature Temperature Source Pulse Rate 77 74 Pulse Rate [Left Radial] Respiratory Rate Blood Pressure 136/85 134/90 Blood Pressure [Right Arm] Blood Pressure Mean [Right Arm] Blood Pressure Source [Right Arm] Blood Pressure Position [Right Arm] 02 Sat by Pulse Oximetry 99 100 Oxygen Delivery Method Room Air Room Air Lab Data Lab Results 11/07/24 12:30: Urine Color Yellow, Urine Appearance Slightly cloudy, Urine pH 6.0, Ur Specific [place] 1.025, Urine Protein Negative, Urine Glucose (UA) Negative, Urine Ketones Negative, Urine Blood Negative, Urine Nitrate Negative, Urine Bilirubin Negative, Urine Urobilinogen 0.2, Ur Leukocyte Esterase 2+ A, Urine RBC None, Urine WBC 5-10, Ur Squamous Epith Cells 5-10, Urine Bacteria 1+ 11/07/24 12:45: WBC 8.0, RBC 4.64, Hgb 12.2, Hct 37.3, MCV 80.4 L, MCH 26.3 L, MCHC 32.7, RDW 15.7, Plt Count 338, MPV 9.7, Neut % (Auto) 57.1, Lymph % (Auto) 29.4, Bandera % (Auto) 10.6 H, Eos % (Auto) 1.8, Baso % (Auto) 0.8, Neut # (Auto) 4.6, Lymph # (Auto) 2.3, Bandera # (Auto) 0.8, Eos # (Auto) 0.1, Baso # (Auto) 0.1, Sodium 137, Potassium 3.2 L, Chloride 103, Carbon Dioxide 26, Anion Gap 11.2, BUN 9, Creatinine 0.80, Estimated Creat Clear 99, Estimated GFR 76, Est GFR ( Amer) 92, Glucose 97, Lactate 0.8, Calcium 8.9, Total Bilirubin 0.5, AST 29, ALT 20, Alkaline Phosphatase 73, Total Protein 7.1, Albumin 4.0, Globulin 3.1, Albumin/Globulin Ratio 1.3, Lipase 93 11/07/24 12:45 11/07/24 12:45 Orders (Tests/Meds): ED MEDICATIONS Discontinued Medications Generic Name Dose Route Start Last Admin Trade Name Freq PRN Reason Stop Dose Admin Lactated Ringer's 1,000 mls @ 999 mls/hr 11/07/24 12:45 11/07/24 12:53 Lactated Ringer's 1000 Ml Bag IV 11/07/24 13:45 999 mls/hr .Q1H1M ADIN Administration Iopamidol 75 ml 11/07/24 13:33 11/07/24 13:34 Iopamidol-370 (76%);100ml Bottle IV 11/07/24 13:34 75 ml ONCE ONE Administration Potassium Chloride 40 meq 11/07/24 13:20 11/07/24 13:33 Potassium Chloride 20meq Tab PO 11/07/24 13:21 40 meq ONCE ONE Administration Sodium Chloride 10 ml 11/07/24 13:33 11/07/24 13:34 Sodium Chloride 0.9% 10ml Syr (Rad Only) IV 11/07/24 13:34 10 ml ONCE ONE Administration ORDERS Category Date Time Status CT abdomen pelvis w con Stat Cat Scan 11/07/24 12:38 Completed CBC w/Auto Diff [Complete Blood Count Auto Diff] Stat Lab 11/07/24 12:45 Completed CMP [Comprehensive Metabolic Panel] Stat Lab 11/07/24 12:45 Completed Diarrhea 23 Panel, PCR Stat Lab 11/07/24 12:38 Ordered HIV Combo Stat Lab 11/07/24 12:35 Ordered Hepatitis C Ab Qual. W/ RFX Stat Lab 11/07/24 12:35 Ordered Lactic Acid Stat Lab 11/07/24 12:45 Completed Lipase Stat Lab 11/07/24 12:45 Completed UA [Urinalysis and Microscopic] Stat Lab 11/07/24 12:30 Completed Urine Culture Stat Micro 11/07/24 12:30 Received Medical Decision Narrative: Patient is a 49-year-old presenting today with diffuse crampy abdominal discomfort and tenderness and bloody diarrhea. Differential includes colitis diverticulitis invasive bacterial species etc. Contrasted CT scan will be ordered to further differentiate given the significant tenderness on exam. Also stool studies have been ordered with PCR panel. IV fluids will be administered and I will reassess. <Christiano Sanchez MD - Last Filed: 11/07/24 15:50> Oliverio Inquiry Pt receiving controlled substance: No Vital Signs: 11/07/24 12:30 11/07/24 12:32 11/07/24 13:36 Temperature 98.4 F Temperature Source Oral Pulse Rate 95 H 84 Pulse Rate [Left Radial] 96 H Respiratory Rate 19 Blood Pressure 141/95 H 146/88 H Blood Pressure [Right Arm] 149/93 H Blood Pressure Mean [Right Arm] 111 Blood Pressure Source [Right Arm] Automatic Cuff Blood Pressure Position [Right Arm] Supine 02 Sat by Pulse Oximetry 100 99 98 Oxygen Delivery Method Room Air Room Air Room Air 11/07/24 13:45 11/07/24 14:00 Temperature Temperature Source Pulse Rate 77 74 Pulse Rate [Left Radial] Respiratory Rate Blood Pressure 136/85 134/90 Blood Pressure [Right Arm] Blood Pressure Mean [Right Arm] Blood Pressure Source [Right Arm] Blood Pressure Position [Right Arm] 02 Sat by Pulse Oximetry 99 100 Oxygen Delivery Method Room Air Room Air Lab Data Lab Results 11/07/24 12:30: Urine Color Yellow, Urine Appearance Slightly cloudy, Urine pH 6.0, Ur Specific [place] 1.025, Urine Protein Negative, Urine Glucose (UA) Negative, Urine Ketones Negative, Urine Blood Negative, Urine Nitrate Negative, Urine Bilirubin Negative, Urine Urobilinogen 0.2, Ur Leukocyte Esterase 2+ A, Urine RBC None, Urine WBC 5-10, Ur Squamous Epith Cells 5-10, Urine Bacteria 1+ 11/07/24 12:45: WBC 8.0, RBC 4.64, Hgb 12.2, Hct 37.3, MCV 80.4 L, MCH 26.3 L, MCHC 32.7, RDW 15.7, Plt Count 338, MPV 9.7, Neut % (Auto) 57.1, Lymph % (Auto) 29.4, Bandera % (Auto) 10.6 H, Eos % (Auto) 1.8, Baso % (Auto) 0.8, Neut # (Auto) 4.6, Lymph # (Auto) 2.3, Bandera # (Auto) 0.8, Eos # (Auto) 0.1, Baso # (Auto) 0.1, Sodium 137, Potassium 3.2 L, Chloride 103, Carbon Dioxide 26, Anion Gap 11.2, BUN 9, Creatinine 0.80, Estimated Creat Clear 99, Estimated GFR 76, Est GFR ( Amer) 92, Glucose 97, Lactate 0.8, Calcium 8.9, Total Bilirubin 0.5, AST 29, ALT 20, Alkaline Phosphatase 73, Total Protein 7.1, Albumin 4.0, Globulin 3.1, Albumin/Globulin Ratio 1.3, Lipase 93 Orders (Tests/Meds): ED MEDICATIONS Discontinued Medications Generic Name Dose Route Start Last Admin Trade Name Freq PRN Reason Stop Dose Admin Lactated Ringer's 1,000 mls @ 999 mls/hr 11/07/24 12:45 11/07/24 12:53 Lactated Ringer's 1000 Ml Bag IV 11/07/24 13:45 999 mls/hr .Q1H1M ADIN Administration Iopamidol 75 ml 11/07/24 13:33 11/07/24 13:34 Iopamidol-370 (76%);100ml Bottle IV 11/07/24 13:34 75 ml ONCE ONE Administration Potassium Chloride 40 meq 11/07/24 13:20 11/07/24 13:33 Potassium Chloride 20meq Tab PO 11/07/24 13:21 40 meq ONCE ONE Administration Sodium Chloride 10 ml 11/07/24 13:33 11/07/24 13:34 Sodium Chloride 0.9% 10ml Syr (Rad Only) IV 11/07/24 13:34 10 ml ONCE ONE Administration ORDERS Category Date Time Status CT abdomen pelvis w con Stat Cat Scan 11/07/24 12:38 Completed CBC w/Auto Diff [Complete Blood Count Auto Diff] Stat Lab 11/07/24 12:45 Completed CMP [Comprehensive Metabolic Panel] Stat Lab 11/07/24 12:45 Completed Diarrhea 23 Panel, PCR Stat Lab 11/07/24 12:38 Ordered HIV Combo Stat Lab 11/07/24 12:35 Ordered Hepatitis C Ab Qual. W/ RFX Stat Lab 11/07/24 12:35 Ordered Lactic Acid Stat Lab 11/07/24 12:45 Completed Lipase Stat Lab 11/07/24 12:45 Completed UA [Urinalysis and Microscopic] Stat Lab 11/07/24 12:30 Completed Urine Culture Stat Micro 11/07/24 12:30 Received Medical Decision Narrative: Patient is a 49-year-old presenting today with diffuse crampy abdominal discomfort and tenderness and bloody diarrhea. Differential includes colitis diverticulitis invasive bacterial species etc. Contrasted CT scan will be ordered to further differentiate given the significant tenderness on exam. Also stool studies have been ordered with PCR panel. IV fluids will be administered and I will reassess. I Christiano Sanchez took over patient from Dr. Myers, on assessment patient hemodynamically stable, well-appearing and nontachycardic. CT concerning for colitis without ischemic changes. I discussed outpatient GI panel and patient was agreeable at this time. Patient no abdominal tenderness on reassessment. I offered antiemetics which were deferred at this time with shared decision making. Patient was discharged in stable condition. I discussed the patient will need to follow-up with her primary doctor and to come back if her symptoms worsen or she becomes dizzy, lightheaded or unable to p.o. Critical Care <Christiano Sanchez MD - Last Filed: 11/07/24 15:50> Critical Care Time Critical Care Time: No
[2024-11-07 13:03] LABS: Basophils # 0.1 K/mm3 (0-0.2); Basophils % 0.8 % (0.1-2.0); Eosinophils # 0.1 Kmm3 (0.0-0.4); Eosinophils % 1.8 % (0.1-12.0); Hematocrit 37.3 % (37.0-47.0); Hemoglobin 12.2 g/dL (12.2-16.2); Lymphocytes # 2.3 K/mm3 (0.7-4.5); Lymphocytes % 29.4 % (10-50); Mean Corpuscular HGB Conc 32.7 g/dL (31.8-35.4); Mean Corpuscular Hemoglobin 26.3 pg (27.0-31.2); Mean Corpuscular Volume 80.4 fl (81-99); Mean Platelet Volume 9.7 fl (7.4-10.4); Monocytes # 0.8 K/mm3 (0.1-1.0); Monocytes % 10.6 % (1.7-9.3); Neutrophils # 4.6 K/mm3 (1.8-7.8); Neutrophils % 57.1 % (37.0-80.0); Nucleated Red Blood Cells # 0 10^3/uL; Nucleated Red Blood Cells % 0 %; Platelet Count 338 K/mm3 (142-424); Red Blood Count 4.64 M/mm3 (4.20-5.40); Red Cell Distribution Width 15.7 % (11.5-17.5); Red Cell Distribution Width-SD 45.3 fL
[2024-11-07 13:05] LABS: Chloride 103 mmol/L (98-107)
[2024-11-07 13:06] LABS: Potassium 3.2 mmoL/L (3.5-5.1); Sodium 137 mmol/L (136-145)
[2024-11-07 13:08] LABS: Alanine Aminotransferase 20 U/L (12-78); Anion Gap 11.2 mEq/L (5-15); Aspartate Amino Transferase 29 U/L (14-36); Blood Urea Nitrogen 9 mg/dl (7-17); Carbon Dioxide 26 mmol/L (22.0-30.0); Creatinine Clearance Estimated 99 mL/min (50-200); Estimated Glomerular Filt Rate 76 ml/min (>60); GFR (African American) 92 ML/MIN (>60)
[2024-11-07 13:09] LABS: Albumin/Globulin Ratio 1.3 (1.1-1.8); Alkaline Phosphatase 73 U/L (38-126); Bilirubin,Total 0.5 mg/dl (0.2-1.3); Calcium 8.9 mg/dl (8.4-10.2); Globulin 3.1 g/dL (1.3-3.2); Glucose 97 mg/dl (74-100); Lipase 93 U/L (23-300); Total Protein,Serum 7.1 g/dl (6.3-8.2)
[2024-11-07 13:19] LABS: Lactic Acid 0.8 mmol/L (0.7-2.1)
[2024-11-07] MEDS: POTASSIUM CHLORIDE 20MEQ TAB 40 MEQ PO (13:33)
[2024-11-07] MEDS: SODIUM CHLORIDE 0.9% 10ML SYR (RAD ONLY) 10 ML IV (13:34)
[2024-11-07] MEDS: IOPAMIDOL-370 (76%);100ML BOTTLE 75 ML IV (13:34)
[2024-11-07 14:42] LABS: Bacteria,Urine 1+ /lpf
== END 2024-11-07 16:16 | disposition home or self-care (01) ==
PROVIDERS: Student in an Organized Health Care Education/Training Program; Emergency Provider Student in an Organized Health Care Education/Training Program; PCP Family Medicine
DX: R10.817 Generalized abdominal tenderness (principal); R19.7 Diarrhea, unspecified; E87.6 Hypokalemia
CPT/HCPCS: 74177; 80053; 81001; 83605; 83690; 85025; 87086; 96360; 99284; J7120; Q9967

== ENCOUNTER 2024-11-08 13:33 | Outpatient (CLI) | payer BC, SELFPAY ==
--- OUTSIDE RECORDS SUMMARY | 2024-11-08 13:35 | XMS_ITS | Continuity of Care Document ---
Author Organization [place] - [place] - [place] & [place], [facility] Address [address] [address] Care Team Providers Care Simulation Technician Name Role Phone [facility] Primary Care Provider Assessment Encounter Date Assessment Date Assessment LastModified [...] to history of BE. -Repeat EGD 04/2027 Not available 09/09/2024 16:24:01 Plan of Treatment Reminders Order Date Submit Date Provider Last Modified By Organization Details Last Modified Time Details Appointments None recorded. Lab None recorded. Referral None recorded. Procedures None recorded. Surgeries None recorded. Imaging None recorded. Medication Orders hyoscyamine 0.125 mg sublingual tablet 2024 025 [facility], [address], [address], [place], [address], 5 11:50:40 Patient TargetsNo targets recorded. Patient InstructionsNo instructions recorded. Reason for Referral None Reported. Problems Name Problem SNOMED Code Status Onset Date Resolution Date Notes Provider Name and Address Organization Details Recorded Time Hiatal hernia with gastroesophag eal reflux 636164407 Active 2023 Adriel Aguillon PA-C [address], [place], [address] , [place] - [place] - [place] & [place] 4 20:50:21 Atypical chest pain 951069946 Active [address], [place], [address] , [place] - [place] - [place] & [place] 5 11:31:03 Chatterjee's esophagus 344636693 Active [address], [place], [address] , [place] - [place] - [place] & [place] 5 11:31:03 Gastroesophag eal reflux disease without esophagitis 694875540 Active 2022 Adriel Aguillon PA-C [address], [place], [address] , [place] - [place] - [place] & [place] 3 15:04:00 Chronic idiopathic constipation 37298386 Active 2022 Adriel Aguillon PA-C [address], [place], [address] , [place] - [place] & [place] 3 15:05:10 Systemic sclerosis 39208909 Active [address], [place], [address] , [place] - [place] & [place] 3 15:06:46 Esophageal dysphagia 80358648 Active 2022 Adriel Aguillon PA-C [address], [place], [place], [address] [place] [address] , [place] [facility] & [place] 3 15:07:32 Hiatal hernia 08246726 Active 2023 Roberto Williamson DNP, SALES AND MARKETING ADMINISTRATOR, PATIENTS TRANSPORTER-C [address], [place], [address] [place] [address] , [place] - [place] [facility] & [place] 4 11:23:12 Pre-surgery evaluation Active 2023 Roberto Williamson DNP, SALES AND MARKETING ADMINISTRATOR, PATIENTS TRANSPORTER-C [address], [place], [address] [place] [address] , [place] - [place] [facility] & [place] 4 11:24:22 Anxiety 65590881 Active 2023 Roberto Williamson DNP, IWONA, PATIENTS TRANSPORTER-C [address], [place], [address] [place] [address] , [place] [facility] & [place] 4 11:49:03 Depressive disorder 99097760 Active 2023 Roberto Williamson DNP, SALES AND MARKETING ADMINISTRATOR, PATIENTS TRANSPORTER-C [address], [place], [address] [place] [address] , [place] [facility] & [place] 4 11:49:07 Essential hypertension 62866798 Active 2023 Roberto Williamson DNP, SALES AND MARKETING ADMINISTRATOR, PATIENTS TRANSPORTER-C [address], [place], [address] [place] [address] , [place] [facility] & [place] 4 11:49:13 Rheumatoid arthritis 16888014 Active 2023 Roberto Williamson DNP, SALES AND MARKETING ADMINISTRATOR, PATIENTS TRANSPORTER-C [address], [place], [address] [place] [address] , [place] [facility] & [place] 4 11:49:20 Regurgitation of gastric content 92774509 Active 2023 Adriel Aguillon PA-C [address], [place], [address] [place] [address] , [place] - [place] & [place] 18:48:52 Problem Notes None recorded. Procedures Surgical History Date Name Laterality Status Provider Name and Address Organization Details Recorded Time 024 fundoplication completed Rosalie Naranjo [place] - [place] & [place] 08/03/2024 13:14:53 022 completed Deja Dolandwell [place] - [place] & [place] 09/09/2024 11:34:46 022 Date of Last Pap Smear completed Deja Thompson [place] & [place] 09/09/2024 11:34:46 015 Gastrointestinal Surgery completed Deja Thompson [place] [facility] & [place] 09/09/2024 11:35:02 013 Breast Surgery completed Deja Thompson [place] [facility] & [place] 09/09/2024 11:35:02 Cholecystectomy completed Roberto Arevalo, MARBELLA, SALES AND MARKETING ADMINISTRATOR, PATIENTS TRANSPORTER-C [address] [facility], [place], [address], [place] - [place] [facility] & [place] 07/28/2023 11:11:17 Breast reduction completed Roberto Williamson, MARBELLA, SALES AND MARKETING ADMINISTRATOR, PATIENTS TRANSPORTER-C [address] [facility], [place], [address], [place] [facility] & [place] 07/28/2023 11:11:09 Tubal Ligation completed Rosalie Naranjo [place] [facility] & [place] 07/06/2024 09:27:55 fundoplication completed Rosalie Naranjo [place] & [place] 07/06/2024 09:28:07 Imaging Results None recorded. Procedure [...] Last Updated DateTime 160.02 cm 29.3 kg/m2 30208.8 2 g 96.7 [degF] 99 % 99 % 75 /min 78 /min 159 mm[Hg] 88 mm[Hg] Deja Thompson [facility] & [place] 11:35:31 Social History Question Answer Notes LastModified by Organizat ion Details LastModified Time Tobacco Smoking Status Never Smoker Rosalie Naranjo [facility], [facility] & [place] 07/28/2023 10:55:50 Do You Have An Advance Directive? No Information not available 09/09/2024 What Is Your Level Of Alcohol Consumption? Occasional [email or web address] Information not available 06/25/2023 Are You Blind Or Do You Have Difficulty Seeing? 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 06/22/2023 [email or web address] Information not available 09/09/2024 Are You Passively Exposed To Smoke? No [email or web address] Information not available 09/09/2024 How Much Tobacco Do You Smoke? No [email or web address] Information not available 09/09/2024 Do You Feel Stressed (tense, Restless, Nervous, Or Anxious, Or Unable To Sleep At Night)? [id number] [email or web address] Information not available 09/09/2024 Do You Use Any Illicit Or Recreational Drugs? No [email or web address] Information not available 06/25/2023 Has Tobacco Cessation Counseling Been Provided? No Information not available 08/21/2023 Do You Or Have You Ever Used Any Other Forms Of Tobacco Or Nicotine? No Information not available 08/21/2023 Sex: Female Functional Status Question Answer Note LastModified by Organization D etails LastModified Time What is your exercise level? Moderate [email or web address] Information not available 09/09/2024 Mental Status None [...] Condition Response Autoimmune disease Y Arthritis Y Rheumatoid Arthritis Y Headaches Y Reflux/GERD Y Hypertension Y Gynecological History Statement/Question Response [...] SNOMED-CT Code Diagnosis ICD10 Code Diagnosis Note [id number] Adriel Aguillon PA-C [facility] [address] [address] 09/09/2024 11:23:16 09/09/2024 12:24:00 Esophageal dysphagia 85096999 R13.19 Regurgitat ion of gastric content 16224064 R11.10 History of fundoplication 430953145 Z98.890 Patient with recurrent upper GI symptoms, esophagram shows possible partial dehiscence of wrap and a small hiatal hernia. Will refer to surgery for further recommenda tions. Hiatal her anne with gastroesophageal reflux 136483538 K21.9 Chatterjee's esophagus 3029 75286 K22.70 Atypical chest pain 1025 60164 R07.89 Health Concerns Section Related Observation LastModified by Organization Detai ls LastModified Time None Recorded Concern Status LastModified by Organization Details LastModified Time None Recorded Payers Encounter Date Sequence Insurance Name Policy Number Policy Cornejo Covered Member ID Cornejo Member ID Guarantor Name 09/09/2024 1 [place] [id number] Daysi Sanderson [id number] Daysi Sanderson Notes Date Note Type [...] at this time otherwise. Adriel Aguillon PA-C [address], [place], [address], [facility] - [place] & [place] 09/09/2024 16:24:14 OBGyn Episode No OBEpisode recorded.
--- OUTSIDE RECORDS SUMMARY | 2024-11-08 13:35 | XMS_ITS | Data Portability ---
Author Organization [place] [facility] [place] [facility] Address [address] [place] [id number] Care Team Providers Care Roping Machine Tender Name Role Phone [facility] Primary Care Provider Assessment Encounter Date Assessment Date Assessment LastModified by Organization Details LastModified Time 04/15/2024 04/15/2024 48-year-old female with history of scleroderma who presented for consultation on 06/25/23 with frequent heartburn, dysphagia, and atypical chest pain. EGD previously showed grade C reflux esophagitis with ulceration at the GE junction and peptic stricture. She underwent hiatal hernia repair and partial fundoplication 08/2023. She has experienced post-operative dysphagia of solids as well as recent recurrence of significant heartburn/regurgi tation concerning for hernia recurrence -schedule EGD for further evaluation. -Stop Pantoprazole. -She was provided with samples of Voquezna 20 mg tablets to take #10. She will be prescribed Voquezna 10 mg tablets to use daily thereafter. -f/u 2 weeks after endoscopy [email or web address] Not available 04/16/2024 18:48:46 06/03/2024 06/03/2024 Bandar is a 48-year-old female with history of scleroderma who presented for consultation on 06/25/23 with frequent heartburn, dysphagia, and atypical chest pain. EGD previously showed grade C reflux esophagitis with ulceration at the GE junction and peptic stricture. She underwent hiatal hernia repair and partial fundoplication 08/2023. She has experienced post-operative dysphagia of solids as well as recent recurrence of significant heartburn/regurgi tation concerning for hernia recurrence 1)Dysphagia 2)Atypical chest pain 3)Erosive Esophagitis 4)Recurrent Hiatal Hernia s/p repair with partial fundoplication 5)Chatterjee's esophagus - peptic stricture which was dilated to 20 mm. There was also noted fundoplication with possible slipping and reoccurrence hiatal hernia of 2 cm. Pathology showed reactive gastropathy and Barretts esophagus. Plan: - Reviewed EGD results and pathology findings - esophagram ordered - Continue Voquezna 10 mg - Discussed starting womens daily multiple vitamin - Trial hyoscyamine for possible esophageal spasm (educated patient not to take prior to esophagram. - Elevation of head of the bed - Remain upright 2 to 3 hours after eating - Dietary modification: Avoidance of triggers such as fatty foods, caffeine, chocolate, spicy foods, food with high fat content, carbonated beverages, peppermint, acidic and citrus items -f/u 2 months [email or web address] Not available 06/03/2024 20:33:16 09/09/2024 09/09/2024 Ms. Portillo is a 49-year-old female with history of [...] to history of BE. -Repeat EGD 04/2027 [email or web address] Not available 09/09/2024 16:24:01 Plan of Treatment Reminders Order Date Submit Date Provider Last Modified By Organization Details Last Modified Time Details Appointments None record ed. Lab CBC w/ auto diff 2023 024 JANELLE [facility], [address], [address], [place], [address], 4 16:39:56 CMP, serum or plasma 2023 024 WAYNOKA [facility], [address], [address], [place], [address], 4 11:38:06 Referral None record ed. Procedures None record ed. Surgeries None record ed. Imaging electr ocardi ogram 2023 024 [facility] (Centralized Scheduling), [address], [place], [address], 5 13:24:24 Medication Orders hyoscy amine 0.125 mg sublin gual tablet 2024 025 [facility], [address] [place] [address], [facility], [place], [address], 5 11:50:40 hyoscy amine 0.125 mg sublin gual tablet 2023 024 [facility], [address] [place] [address], [facility], [place], [address], 4 20:26:59 Voquez na 10 mg tablet 2023 024 [facility], [address] [place] [address], [facility], [place], [address], 4 12:23:37 Patient TargetsNo targets recorded. Patient InstructionsNo instructions recorded. Reason for Referral None Reported. Results Created Date Observation Date Name Description Value Unit Range Abnormal Flag Note LastModifiedBy Organization Detail LastModifiedTime 07/06/2007/06/2024 COMP METAB OLIC PANEL sodium 139 mmol/ L 136-14 5 Not Available [facility] ([facility]) [address], [place], [address], 07/06/2024 11:38:06 07/06/20 24 07/06/2024 COMP METAB OLIC PANEL potassium 3.7 mmol/ L 3.6-5. 0 Not Available [facility] ([facility]) [address], [place], [address], 07/06/2024 11:38:06 07/06/20 24 07/06/2024 COMP METAB OLIC PANEL chloride 102 mmol/ L 98-107 Not Available [facility] ([facility]) [address], [place], [address], 07/06/2024 11:38:06 07/06/20 24 07/06/2024 COMP METAB OLIC PANEL carbon dioxide 29.7 mmol/ L 21.0-3 2.0 Not Available [facility] ([facility]) [address] , [place], [address], 07/06/2024 11:38:06 07/06/20 24 07/06/2024 COMP METAB OLIC PANEL anion gap 11.0 Not Available [facility] ([facility]) [address] , [place], [address], 07/06/2024 11:38:06 07/06/20 24 07/06/2024 COMP METAB OLIC PANEL glucose 95 mg/dL 70-120 Not Available [facility] ([facility]) [address], [place], [address], 07/06/2024 11:38:06 07/06/20 24 07/06/2024 COMP METAB OLIC PANEL BUN 13 mg/dL 7-18 Not Available [facility] ([facility]) [address] , [place], [address], 07/06/2024 11:38:06 07/06/20 24 07/06/2024 COMP METAB OLIC PANEL creatinine 1.0 mg/dL 0.6-1. 3 Not Available [facility] ([facility]) [address] , [place], [address], 07/06/2024 11:38:06 07/06/20 24 07/06/2024 COMP METAB OLIC PANEL glomerular filtration rate 69 mlper min 60- GFR LIMIT ATION : The eGFR equat ion CKD-E PI 2020 is not appli cable for pedia tric patie nts or great er than 90 years of age. The follo wing condi tions may alter the GFR resul t: extre mes in body size, malnu triti on or obesi ty, skele rajesh muscl e disea se, parap legia or quadr ipleg ia, veget pardeep diet or rapid ly min ing kiney funct ion. Not Available [facility] ([facility]) [address] , [place], [address], 07/06/2024 11:38:06 07/06/20 24 07/06/2024 COMP METAB OLIC PANEL total protein 8.0 g/dL 6.4-8. 2 Not Available [facility] ([facility]) [address] , [place], [address], 07/06/2024 11:38:06 07/06/20 24 07/06/2024 COMP METAB OLIC PANEL albumin 3.9 g/dL 3.4-5. 0 Not Available [facility] ([facility]) [address] , [place], [address], 07/06/2024 11:38:06 07/06/20 24 07/06/2024 COMP METAB OLIC PANEL globulin 4.1 Not Available [facility] ([facility]) [address] , [place], [address], 07/06/2024 11:38:06 07/06/20 24 07/06/2024 COMP METAB OLIC PANEL alb/glob ratio 1.0 0.7-2 Not Available [facility] ([facility]) [address] , [place], [address], 07/06/2024 11:38:06 07/06/20 24 07/06/2024 COMP METAB OLIC PANEL calcium 9.0 mg/dL 8.5-10 .5 Not Available [facility] ([facility]) [address], [place], [address], 07/06/2024 11:38:06 07/06/20 24 07/06/2024 COMP METAB OLIC PANEL bilirubin total 0.40 mg/dL 0.10-1 .00 Not Available [facility] ([facility]) [address], [place], [address], 07/06/2024 11:38:06 07/06/20 24 07/06/2024 COMP METAB OLIC PANEL AST (SGOT) 19 U/L 0-37 Not Available [facility] ([facility]) [address], [place], [address], 07/06/2024 11:38:06 07/06/20 24 07/06/2024 COMP METAB OLIC PANEL ALT (SGPT) 28 U/L 0-65 Not Available [facility] ([facility]) [address], [place], [address], 07/06/2024 11:38:06 07/06/20 24 07/06/2024 COMP METAB OLIC PANEL alk phosphatase 57 U/L 46-116 Not Available [facility] ([facility]) [address], [place], [address], 07/06/2024 11:38:06 07/06/20 24 07/06/2024 CBC AUTO W DIFF WBC 7.8 K/uL 4.0-10 .5 Not Available [facility] ([facility]) [address], [place], [address], 07/06/2024 16:39:56 07/06/20 24 07/06/2024 CBC AUTO W DIFF RBC 5.0 M/mm3 4.2-6. 4 Not Available [facility] ([facility]) [address], [place], [address], 07/06/2024 16:39:56 07/06/20 24 07/06/2024 CBC AUTO W DIFF HGB 12.0 gm/dL 12.5-1 6.0 low Not Available [facility] ([facility]) [address] , [place], [address], 07/06/2024 16:39:56 07/06/20 24 07/06/2024 CBC AUTO W DIFF HCT 39.5 % 37.0-4 7.0 Not Available [facility] ([facility]) [address] , [place], [address], 07/06/2024 16:39:56 07/06/20 24 07/06/2024 CBC AUTO W DIFF MCV 79.3 fL 78-100 Not Available [facility] ([facility]) [address] , [place], [address], 07/06/2024 16:39:56 07/06/20 24 07/06/2024 CBC AUTO W DIFF MCH 24.1 pg 27-31 low Not Available [facility] ([facility]) [address] , [place], [address], 07/06/2024 16:39:56 07/06/20 24 07/06/2024 CBC AUTO W DIFF MCHC 30.4 g/dL 32-36 low Not Available [facility] ([facility]) [address] , [place], [address], 07/06/2024 16:39:56 07/06/20 24 07/06/2024 CBC AUTO W DIFF RDW 14.7 % 11.5-1 4.0 high Not Available [facility] ([facility]) [address] , [place], [address], 07/06/2024 16:39:56 07/06/20 24 07/06/2024 CBC AUTO W DIFF platelet count 459 K/uL 150-45 0 high Not Available [facility] ([facility]) [address] , [place], [address], 07/06/2024 16:39:56 07/06/20 24 07/06/2024 CBC AUTO W DIFF MPV 10.0 fL 6-9.5 high Not Available [facility] ([facility]) [address] , [place], [address], 07/06/2024 16:39:56 07/06/20 24 07/06/2024 CBC AUTO W DIFF neutrophil% 56.8 % 43-65 Not Available [facility] ([facility]) [address] , [place], [address], 07/06/2024 16:39:56 07/06/20 24 07/06/2024 CBC AUTO W DIFF lymphocyte% 29.0 % 20.5-4 5.5 Not Available [facility] ([facility]) [address] , [place], [address], 07/06/2024 16:39:56 07/06/20 24 07/06/2024 CBC AUTO W DIFF monocyte% 11.2 % 5.5-11 .7 Not Available [facility] ([facility]) [address] , [place], [address], 07/06/2024 16:39:56 07/06/20 24 07/06/2024 CBC AUTO W DIFF eosinophil% 1.5 % 0.9-2. 9 Not Available [facility] ([facility]) [address] , [place], [address], 07/06/2024 16:39:56 07/06/20 24 07/06/2024 CBC AUTO W DIFF basophil% 1.2 % 0.2-1. 0 high Not Available [facility] ([facility]) [address] , [place], [address], 07/06/2024 16:39:56 07/06/20 24 07/06/2024 CBC AUTO W DIFF immature granulocytes % 0.3 % 0.0-0. 8 Not Available [facility] ([facility]) [address] [facility], [place], [address], 07/06/2024 16:39:56 07/06/20 24 07/06/2024 CBC AUTO W DIFF nucleated red blood cells % 0.0 % Not Available [facility] ([facility]) [address] [facility], [place], [address], 07/06/2024 16:39:56 07/06/20 24 07/06/2024 CBC AUTO W DIFF neutrophil# 4.4 K/uL 2.2-4. 8 Not Available [facility] ([facility]) [address] [facility], [place], [address], 07/06/2024 16:39:56 07/06/20 24 07/06/2024 CBC AUTO W DIFF lymphocyte# 2.3 cell/ mcL 1.3-2. 9 Not Available [facility] ([facility]) [address] [facility], [place], [address], 07/06/2024 16:39:56 07/06/20 24 07/06/2024 CBC AUTO W DIFF monocyte# 0.9 cell/ mcL 0.3-0. 8 high Not Available [facility] ([facility]) [address] [facility], [place], [address], 07/06/2024 16:39:56 07/06/20 24 07/06/2024 CBC AUTO W DIFF eosinophil# 0.1 cell/ mcL 0-0.2 Not Available [facility] ([facility]) [address] [place], [address], 07/06/2024 16:39:56 07/06/20 24 07/06/2024 CBC AUTO W DIFF basophil# 0.1 cell/ mcL 0.0-1. 0 Not Available [facility] ([facility]) [address] [place], [address], 07/06/2024 16:39:56 07/06/20 24 07/06/2024 CBC AUTO W DIFF immature gramulocytes # 0.02 K/uL Not Available [facility] ([facility]) [address] , [place], [address], 07/06/2024 16:39:56 07/06/20 24 07/06/2024 CBC AUTO W DIFF nucleated red blood cells # 0.00 K/uL Not Available [facility] ([facility]) [address] , [place], [address], 07/06/2024 16:39:56 07/06/20 24 07/06/2024 CBC AUTO W DIFF manual differential NO Not Available [facility] ([facility]) [address], [place], [address], 07/06/2024 16:39:56 07/15/20 24 07/16/2024 CBC WITH DIFFE RENTI AL/PL ATELE T WBC 6.1 x10e3 /uL 3.4-10 .8 normal Not Available [facility] ([facility]) [address] [place], [address], 07/16/2024 03:36:56 07/15/20 24 07/16/2024 CBC WITH DIFFE RENTI AL/PL ATELE T RBC 5.09 x10e6 /uL 3.77-5 .28 normal Not Available [facility] ([facility]) [address] [place], [address], 07/16/2024 03:36:56 07/15/20 24 07/16/2024 CBC WITH DIFFE RENTI AL/PL ATELE T hemoglobin 12.3 g/dL 11.1-1 5.9 normal Not Available [facility] ([facility]) [address] [place], [address], 07/16/2024 03:36:56 07/15/20 24 07/16/2024 CBC WITH DIFFE RENTI AL/PL ATELE T hematocrit 40.0 % 34.0-4 6.6 normal Not Available [facility] ([facility]) [address] [place], [address], 07/16/2024 03:36:56 07/15/20 24 07/16/2024 CBC WITH DIFFE RENTI AL/PL ATELE T MCV 79 fL 79-97 normal Not Available [facility] ([facility]) [address] [place], [address], 07/16/2024 03:36:56 07/15/20 24 07/16/2024 CBC WITH DIFFE RENTI AL/PL ATELE T MCH 24.2 pg 26.6-3 3.0 below low normal Not Available [facility] ([facility]) [address] [place], [address], 07/16/2024 03:36:56 07/15/20 24 07/16/2024 CBC WITH DIFFE RENTI AL/PL ATELE T MCHC 30.8 g/dL 31.5-3 5.7 below low normal Not Available [facility] ([facility]) [address] [place], [address], 07/16/2024 03:36:56 07/15/20 24 07/16/2024 CBC WITH DIFFE RENTI AL/PL ATELE T RDW 13.9 % 11.7-1 5.4 Not Available [facility] ([facility]) [address] [place], [address], 07/16/2024 03:36:56 07/15/20 24 07/16/2024 CBC WITH DIFFE RENTI AL/PL ATELE T platelets 334 x10e3 /uL 150-45 0 normal Not Available [facility] ([facility]) [address] [place], [address], 07/16/2024 03:36:56 07/15/20 24 07/16/2024 CBC WITH DIFFE RENTI AL/PL ATELE T neutrophils 49 % not estab. normal Not Available [facility] ([facility]) [address] [facility], [place], [address], 07/16/2024 03:36:56 07/15/20 24 07/16/2024 CBC WITH DIFFE RENTI AL/PL ATELE T lymphs 27 % not estab. normal Not Available [facility] ([facility]) [address] [facility], [place], [address], 07/16/2024 03:36:56 07/15/20 24 07/16/2024 CBC WITH DIFFE RENTI AL/PL ATELE T monocytes 18 % not estab. normal Not Available [facility] ([facility]) [address] [facility], [place], [address], 07/16/2024 03:36:56 07/15/20 24 07/16/2024 CBC WITH DIFFE RENTI AL/PL ATELE T eos 5 % not estab. normal Not Available [facility] ([facility]) [address] [facility], [place], [address], 07/16/2024 03:36:56 07/15/20 24 07/16/2024 CBC WITH DIFFE RENTI AL/PL ATELE T basos 1 % not estab. normal Not Available [facility] ([facility]) [address] [facility], [place], [address], 07/16/2024 03:36:56 07/15/20 24 07/16/2024 CBC WITH DIFFE RENTI AL/PL ATELE T immature cells TRAINING LEAD Not Available [facility] ([facility]) [address] [facility], [place], [address], 07/16/2024 03:36:56 07/15/20 24 07/16/2024 CBC WITH DIFFE RENTI AL/PL ATELE T neutrophils (absolute) 3.0 x10e3 /uL 1.4-7. 0 normal Not Available [facility] ([facility]) [address] [place], [address], 07/16/2024 03:36:56 07/15/20 24 07/16/2024 CBC WITH DIFFE RENTI AL/PL ATELE T lymphs (absolute) 1.6 x10e3 /uL 0.7-3. 1 normal Not Available [facility] ([facility]) [address] [place], [address], 07/16/2024 03:36:56 07/15/20 24 07/16/2024 CBC WITH DIFFE RENTI AL/PL ATELE T monocytes(ab solute) 1.1 x10e3 /uL 0.1-0. 9 above high normal Not Available [facility] ([facility]) [address] [place], [address], 07/16/2024 03:36:56 07/15/20 24 07/16/2024 CBC WITH DIFFE RENTI AL/PL ATELE T eos (absolute) 0.3 x10e3 /uL 0.0-0. 4 normal Not Available [facility] ([facility]) [address] [place], [address], 07/16/2024 03:36:56 07/15/20 24 07/16/2024 CBC WITH DIFFE RENTI AL/PL ATELE T baso (absolute) 0.1 x10e3 /uL 0.0-0. 2 normal Not Available [facility] ([facility]) [address] [place], [address], 07/16/2024 03:36:56 07/15/20 24 07/16/2024 CBC WITH DIFFE RENTI AL/PL ATELE T immature granulocytes 0 % not estab. Not Available [facility] ([facility]) [address] [place], [address], 07/16/2024 03:36:56 07/15/20 24 07/16/2024 CBC WITH DIFFE RENTI AL/PL ATELE T immature grans (abs) 0.0 x10e3 /uL 0.0-0. 1 Not Available [facility] ([facility]) [address] [facility], [place], [address], 07/16/2024 03:36:56 07/15/20 24 07/16/2024 CBC WITH DIFFE RENTI AL/PL ATELE T NRBC TRAINING LEAD Not Available [facility] ([facility]) [address] [facility], [place], [address], 07/16/2024 03:36:56 07/15/20 24 07/16/2024 CBC WITH DIFFE RENTI AL/PL ATELE T hematology comments: TRAINING LEAD Not Available [facility] ([facility]) [address] [facility], [place], [address], 07/16/2024 03:36:56 07/15/20 24 07/16/2024 COMP. METAB OLIC PANEL (14) glucose 101 mg/dL 70-99 above high normal Not Available [facility] ([facility]) [address] [facility], [place], [address], 07/16/2024 03:36:56 07/15/20 24 07/16/2024 COMP. METAB OLIC PANEL (14) BUN 8 mg/dL 6-24 normal Not Available [facility] ([facility]) [address] [facility], [place], [address], 07/16/2024 03:36:56 07/15/20 24 07/16/2024 COMP. METAB OLIC PANEL (14) creatinine 0.93 mg/dL 0.57-1 .00 normal Not Available [facility] ([facility]) [address] [facility], [place], [address], 07/16/2024 03:36:56 07/15/20 24 07/16/2024 COMP. METAB OLIC PANEL (14) eGFR 75 mL/mi n/1.7 3 >59 normal Not Available [facility] ([facility]) [address] [facility], [place], [address], 07/16/2024 03:36:56 07/15/20 24 07/16/2024 COMP. METAB OLIC PANEL (14) BUN/creatini ne ratio 9 9-23 normal Not Available [facility] ([facility]) [address] [facility], [place], [address], 07/16/2024 03:36:56 07/15/20 24 07/16/2024 COMP. METAB OLIC PANEL (14) sodium 138 mmol/ L 134-14 4 normal Not Available [facility] ([facility]) [address] [facility], [place], [address], 07/16/2024 03:36:56 07/15/20 24 07/16/2024 COMP. METAB OLIC PANEL (14) potassium 3.9 mmol/ L 3.5-5. 2 normal Not Available [facility] ([facility]) [address] [facility], [place], [address], 07/16/2024 03:36:56 07/15/20 24 07/16/2024 COMP. METAB OLIC PANEL (14) chloride 98 mmol/ L 96-106 normal Not Available [facility] ([facility]) [address] [place], [address], 07/16/2024 03:36:56 07/15/20 24 07/16/2024 COMP. METAB OLIC PANEL (14) carbon dioxide, total 26 mmol/ L 20-29 normal Not Available [facility] ([facility]) [address] [place], [address], 07/16/2024 03:36:56 07/15/20 24 07/16/2024 COMP. METAB OLIC PANEL (14) calcium 9.4 mg/dL 8.7-10 .2 normal Not Available [facility] ([facility]) [address] [place], [address], 07/16/2024 03:36:56 07/15/20 24 07/16/2024 COMP. METAB OLIC PANEL (14) protein, total 7.0 g/dL 6.0-8. 5 normal Not Available [facility] ([facility]) [address] [place], [address], 07/16/2024 03:36:56 07/15/20 24 07/16/2024 COMP. METAB OLIC PANEL (14) albumin 4.3 g/dL 3.9-4. 9 normal Not Available [facility] ([facility]) [address], [place], [address], 07/16/2024 03:36:56 07/15/20 24 07/16/2024 COMP. METAB OLIC PANEL (14) globulin, total 2.7 g/dL 1.5-4. 5 Not Available [facility] ([facility]) [address] [place], [address], 07/16/2024 03:36:56 07/15/20 24 07/16/2024 COMP. METAB OLIC PANEL (14) bilirubin, total <0.2 mg/dL 0.0-1. 2 Not Available [facility] ([facility] [address] [place], [address], 07/16/2024 03:36:56 07/15/20 24 07/16/2024 COMP. METAB OLIC PANEL (14) alkaline phosphatase 66 IU/L 44-121 normal Not Available [facility] ([facility]) [address] [place], [address], 07/16/2024 03:36:56 07/15/20 24 07/16/2024 COMP. METAB OLIC PANEL (14) AST (SGOT) 20 IU/L 0-40 normal Not Available [facility] ([facility]) [address], [place], [address], 07/16/2024 03:36:56 07/15/20 24 07/16/2024 COMP. METAB OLIC PANEL (14) ALT (SGPT) 19 IU/L 0-32 normal Not Available [facility] ([facility]) [address] [facility], [place], [address], 07/16/2024 03:36:56 06/23/20 24 06/23/2024 XR, esoph agram [facility] [address] [place] [address] Phone: Fax: Name: DEBRA SCHWAB Exam Date: 024 : [birth year] Age 49 years Gender : F Access ion: [id number] Physic ang: ADRIEL AGUILLON Facili ty: [facility] Facili ty HSV: Outpat ient Exam: ESOPHA GRAM EXAM: ESOPHA GRAM Perfor med by: Jenni pryor ORAL SURGERY ASSISTANT, TRAINING LEAD-C. INDICA TION: reflux diseas e, S/P Carla proced ure 09/2023 . Sylvia g hernia dx by EGD. TECHNI QUE: Barium contra st evalua tion of the esopha emile was perfor med using double contra st techni que. Multip le overhe ad and fluoro scopic spot images re obtain ed. FLUORO TIME: 1 minute . Refere nce air kerma: 6.7 mGy. FINDIN GS: There is a normal primar y stripp ing wave. Esopha geal mucosa is unrema rkable . No intrin sic or extrin sic masses , strict ures noted. There may be partia l dehisc ence of the fundop licati on wrap. There is a small hiatal hernia contai enrique the proxim al stomac h. Remain dona of the stomac h is intra- abdomi nal and appear s unrema rkable . No gastro esopha geal reflux is observ ed includ ing after Valsal va. A 13 mm barium tablet passes easily throug h the esopha emile and into the stomac h. IMPRES CHRISTOPHER: 1. Small hiatal hernia . 2. Findin gs that may repres ent partia l dehisc ence of the fundop licati on wrap. Electr onical ly signed by:Lily jennings MD11/2023 04:27 PM EST RP Workst ation: [id number] Dictat ed By: Joey Cardona Transc ribed By: Transc ribed On: 024 10:21 AM Electr onical ly signed by: Joey Cardona 024 Thank you for referr ing DEBRA SCHWAB to [facility]. Legall y authen ticate d by YEHUDA Pierce 2023-07 10:21: 56 CC'ed Logic: Orderi ng Provid er: SAMMIE LOCKE Attend ing Provid er: SAMMIE LOCKE Referr ing Provid er: SAMMIE LOCKE Admitt ing Provid er: SAMMIE LOCKE [email or web address] [facility] [address] [facility], [place], [address], 06/27/2024 16:30:39 Result Notes None recorded. Problems Name Problem SNOMED Code Status Onset Date Resolution Date Notes Provider Name and Address Organization Details Recorded Time Hiatal hernia with gastroesophag eal reflux 275576074 Active 2023 Adriel Aguillon PA-C [address] [place], [address] , [place] [facility] & [place] 4 20:50:21 Atypical chest pain 352444043 Active 2024 Adriel Aguillon PA-C [address] [place], [address] , [place] [facility] & [place] 5 11:31:03 Chatterjee's esophagus 769670643 Active 2024 Adriel Aguillon PA-C [address] [place], [address] , [place] & [place] 5 11:31:03 Gastroesophag eal reflux disease without esophagitis 991053887 Active 2022 Adriel Aguillon PA-C [address], [place], [address] , [place] & [place] 3 15:04:00 Chronic idiopathic constipation 85777110 Active 2022 Adriel Aguillon PA-C [address], [place], [address] , [place] 3 15:05:10 Systemic sclerosis 82770991 Active 2022 Adriel Aguillon PA-C [address], [place], [address] , [place] & [place] 3 15:06:46 Esophageal dysphagia 22549836 Active 2022 Adriel Aguillon PA-C [address], [place], [address] , [place] 3 15:07:32 Hiatal hernia 03253705 Active 2023 Roberto Williamson DNP, ORAL SURGERY ASSISTANT, TRAINING LEAD-C [address], [place], [address] , [place] [facility] [place] & [place] 4 11:23:12 Pre-surgery evaluation Active 2023 Roberto Williamson DNP, ORAL SURGERY ASSISTANT, TRAINING LEAD-C [address], [place], [address] , [place] 4 11:24:22 Anxiety 77514287 Active 2023 Roberto Williamson DNP, ORAL SURGERY ASSISTANT, TRAINING LEAD-C [address], [place], [address] , [place] 4 11:49:03 Depressive disorder 90735150 Active 2023 Roberto Williamson DNP, IWONA, TRAINING LEAD-C [address], [place], [address] , [place] & [place] 4 11:49:07 Essential hypertension 89142633 Active 2023 Roberto Williamson DNP, ORAL SURGERY ASSISTANT, TRAINING LEAD-C [address], [place], [address] , [place] [facility] [place] & [place] 4 11:49:13 Rheumatoid arthritis 38719063 Active 2023 Roberto Williamson DNP, ORAL SURGERY ASSISTANT, TRAINING LEAD-C [address], [place], [address] , [place] [facility] & [place] 4 11:49:20 Regurgitation of gastric content 55753135 Active 2023 Adriel Aguillon PA-C [address], [place], [address] , [place] [facility] & [place] 4 18:48:52 Problem Notes None recorded. Procedures Surgical History Date Name Laterality Status Provider Name and Address Organization Details Recorded Time 024 fundoplication completed Rosalie Naranjo [place] [facility] & [place] 08/03/2024 13:14:53 022 completed Deja Thompson [place] 09/09/2024 11:34:46 022 Date of Last Pap Smear completed Deja Thompson [place] 09/09/2024 11:34:46 015 Gastrointestinal Surgery completed Deja Thompson [place] 09/09/2024 11:35:02 013 Breast Surgery completed Deja Thompson [place] 09/09/2024 11:35:02 Cholecystectomy completed Roberto Arevalo DNP, IWONA, TRAINING LEAD-C [address], [place], [address], [facility] & [place] 07/28/2023 11:11:17 Breast reduction completed Roberto Williamson, DNP, ORAL SURGERY ASSISTANT, TRAINING LEAD-C [address] [facility], [place], [address], [facility] & [place] 07/28/2023 11:11:09 Tubal Ligation completed Rosalie BABIN [facility] & [place] 07/06/2024 09:27:55 fundoplication completed Rosalie BABIN - [facility] & [place] 07/06/2024 09:28:07 Imaging Results Imaging Date Name Status LastModified by Organiz ation Details LastModified Time 06/23/2024 XR, esophagram completed [email or web address] [facility] - [facility] [address] [facility], [place], [address], 06/27/2024 16:30:39 Procedure Notes None recorded. Medical Equipment None [...] and Address Organization Details Last Updated DateTime 4 160.02 cm 29.1 kg/m2 26666.8 7 g 97.7 [degF] 98 % 98 % 92 /min 92 /min 140 mm[Hg] 91 mm[Hg] Arpita BABIN - [place] - [place] & [place] 4 11:49:27 Date Recorded Body height Body mass index (BMI) Body weight Body temperature Oxygen saturation Oxygen saturation in Arterial blood by Pulse oximetry Heart rate Systolic blood pressure Diastolic blood pressure Provider Name and Address Organization Details Last Updated DateTime 4 160.02 cm 30.1 kg/m2 37708.7 g 97.5 [degF] 98 % 98 % 88 /min 130 mm[Hg] 90 mm[Hg] Tierra Ly [facility] & [place] 4 09:23:44 Date Recorded Body height Body mass index (BMI) Body weight Body temperature Heart rate Systolic blood pressure Diastolic blood pressure Provider Name and Address Organization Details Last Updated DateTime 4 160.02 cm 30.7 kg/m2 88368.2 g 97.8 [degF] 94 /min 170 mm[Hg] 100 mm[Hg] Rosalie Naranjo [facility] & [place] 4 09:28:43 Date Recorded Body height Body mass index (BMI) Body weight Body temperature Heart rate Systolic blood pressure Diastolic blood pressure Provider Name and Address Organization Details Last Updated DateTime 5 160.02 cm 29.5 kg/m2 86588.1 3 g 97.5 [degF] 72 /min 110 mm[Hg] 77 mm[Hg] Rosalie Naranjo [facility] & [place] 5 13:14:05 Date Recorded Body height Body mass index (BMI) Body weight Body temperature Oxygen saturation Oxygen saturation in Arterial blood by Pulse oximetry Heart rate Heart rate Systolic blood pressure Diastolic blood pressure Provider Name and Address Organization Details Last Updated DateTime 5 160.02 cm 29.3 kg/m2 11239.8 2 g 96.7 [degF] 99 % 99 % 75 /min 78 /min 159 mm[Hg] 88 mm[Hg] Deja Thompson [facility] & [place] 5 11:35:31 Social History Question Answer Notes LastModified by Organizat ion Details LastModified Time Tobacco Smoking Status Never Smoker Rosalie Naranjo [facility] & [place] 07/28/2023 10:55:50 Do You Have An Advance Directive? No [email or web address] Information not available 09/09/2024 What Is Your Level Of Alcohol Consumption? Occasional [email or web address] Information not available 06/25/2023 Are You Blind Or Do You Have Difficulty Seeing? 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 06/22/2023 [email or web address] Information not available 09/09/2024 Are You Passively Exposed To Smoke? No [email or web address] Information not available 09/09/2024 How Much Tobacco Do You Smoke? No Information not available 09/09/2024 Do You Feel Stressed (tense, Restless, Nervous, Or Anxious, Or Unable To Sleep At Night)? [id number] [email or web address] Information not available 09/09/2024 Do You Use Any Illicit Or Recreational Drugs? No [email or web address] Information not available 06/25/2023 Has Tobacco Cessation Counseling Been Provided? No Information not available 08/21/2023 Do You Or Have You Ever Used Any Other Forms Of Tobacco Or Nicotine? No Information not available 08/21/2023 Sex: Female Functional Status Question Answer Note LastModified by Organization D etails LastModified Time What is your exercise level? Moderate [email or web address] Information not available 09/09/2024 Mental Status None [...] SNOMED-CT Code Diagnosis ICD10 Code Diagnosis Note [id number] Adriel Aguillon PA-C [facility] [address] [facility] [address] [place] [address] 06/25/2023 14:17:18 06/25/2023 15:05:25 Gastroesophageal reflux disease without esophagitis 083608463 K21.9 Chronic id iopathic constipation 30969834 K59.04 Systemic sclerosis 97901 008 M34.9 Esophageal dysphagia 408 46217 R13.19 [id number] Roberto Williamson, DNP, ORAL SURGERY ASSISTANT, TRAINING LEAD-C [facility] [address] [facility] [address] [facility] [address] 07/28/2023 10:45:14 07/28/2023 11:55:47 Hiatal hernia 55030954 K44.9 Robotic assisted Partial fundoplica tion with hiatal hernia repair and placement of bio-absorb able mesh. All risks, complicati ons and alternativ es were explained to the patient including but not excluding bleeding, infection, recurrence , pneumothor ax, solid organ injury, esophageal and gastric injury. The risk of gas bloat syndrome was also explained to her. She agrees to proceed with the procedure. Dr. Carter also seen patient this morning. Postoperat sherman diet plan discussed with patient and she was given a informatio n handout. Pre-surger y evaluation 969026031 Z01.818 Gastroesop hageal reflux disease without esophagitis 364870175 K21.9 Esophageal dysphagia 408 49738 R13.19 Anxiety 90880715 F41.9 Depressive disorder 3548 9007 F32.A Essential hypertension 08816295 I10 Rheumatoid arthritis 698 07690 M06.9 [id number] Adriel Aguillon PA-C [facility] [address] [facility] [address] [place] [address] 08/21/2023 08:25:11 08/21/2023 09:13:33 Gastroesophageal reflux disease without esophagitis 025578970 K21.9 Chronic id iopathic constipation 34753922 K59.04 Systemic sclerosis 81905 008 M34.9 Esophageal dysphagia 408 09886 R13.19 [id number] ISAAC CARTER MD [facility] [address] [facility] [address] [place] [address] 09/22/2023 09:17:21 09/23/2023 09:22:27 Postoperative visit 567600119 Z48.89 Doing wellFollow ing 8 week diet advancemen t, has the instructio ns for this at homeContin ue diet advancemen t as per schedule providedPa in control PRNContinu e to avoid heavy lifting for 6 weeksMay return to work on Fo llow-up PRN [id number] Adriel Aguillon PA-C [facility] [address] [place] [address] 04/15/2024 11:18:16 04/15/2024 12:28:26 Gastroesophageal reflux disease without esophagitis 946703176 K21.9 Systemic sclerosis 66115 008 M34.9 Esophageal dysphagia 408 66592 R13.19 Regurgitat ion of gastric content 59381395 R11.10 History of fundoplication 678890534 Z98.637 [id number] RAJESH DICKINSON NP [facility] [address] [place] [address] [place] [address] 06/03/2024 09:18:39 06/03/2024 10:17:24 Esophageal dysphagia 50539996 R13.19 Regurgitat ion of gastric content 46364765 R11.10 History of fundoplication 796513898 Z98.890 Hiatal her anne with gastroesophageal reflux 695864681 K21.9 Chatterjee's esophagus 3029 21046 K22.70 Atypical chest pain 1025 45607 R07.89 [id number] ISAAC CARTER MD [facility]ariat[facility] and Adv Surg [address] [facility] [address] [place] [address] 07/06/2024 09:16:38 07/06/2024 10:23:47 Hiatal hernia 69903493 K44.9 Recurrent small hiatal hernia with possible slippage of prior fundoplica tion. Recommend repeating EGD myself for me to directly visualize the anatomy. She may require re-repair of the hiatal hernia and or fundoplica tion.Octavio bocanegra recommenda tion will be based on EGD results but diagnostic laparoscop y with possible revision of her prior hernia.Remberto fu Pre-surger y evaluation 906699564 Z01.244 [id number] ISAAC CARTER MD [facility] [address] [facility] [address] [place] [address] 08/03/2024 13:07:49 08/03/2024 13:41:51 Postoperative visit 908423273 Z48.89 Doing wellFollow ing 6-8 week diet advancemen t, has the instructio ns for this at homeContin ue diet advancemen t as per schedule providedPa in control PRNContinu e to avoid heavy lifting for 6 weeksFollo w-up PRN [id number] Adriel Aguillon PA-C [facility] [address] [facility] [address] [place] [address] 09/09/2024 11:23:16 09/09/2024 12:24:00 Esophageal dysphagia 85370189 R13.19 Regurgitat ion of gastric content 19951404 R11.10 History of fundoplication 991538042 Z98.890 Patient with recurrent upper GI symptoms, esophagram shows possible partial dehiscence of wrap and a small hiatal hernia. Will refer to surgery for further recommenda tions. Hiatal her anne with gastroesophageal reflux 077331738 K21.9 Chatterjee's esophagus 3029 44644 K22.70 Atypical chest pain 1025 25187 R07.89 Health Concerns Section Related Observation LastModified by Organization Detai ls LastModified Time None Recorded Concern Status LastModified by Organization Details LastModified Time None Recorded Advance Directives Directive N: Payers Encounter Date Sequence Insurance Name Policy Number Policy Cornejo Covered Member ID Cornejo Member ID Guarantor Name 04/15/2024 1 [place] [id number] Debra S Bandar [id number] Debra S Bandar 06/03/2024 1 [place] [id number] Debra S Bandar [id number] Debra S Bandar 07/06/2024 1 [place] [id number] 9 Debra S Bandar [id number] Debra Saabley 08/03/2024 1 [place] [id number] 9 Debra S Bandar [id number] Debra Saabley 09/09/2024 1 [place] [id number] 9 Debra S Bandar [id number] Debra S Bandar Notes Date Note Type Note Provider Name and Address Organization Details Recorded Time 04/15/2024 text/html PREVIOUS (08/21/23 ): Ms. Lyn returns to the office today for follow-up regarding GERD and chronic constipation. She underwent EGD and colonoscopy on July 08, 2023. EGD showed findings of grade C esophagitis and stricture in the GE junction that was dilated. A 6 cm sliding hiatal hernia was noted. Colonoscopy showed 1 polyp that was resected with path revealing tubular adenoma without dysplasia. Biopsy of the distal esophagus showed active esophagitis with erosion/ulceration. She also underwent esophageal manometry testing earlier this week with no [place] classification abnormality identified. She is scheduled for hiatal hernia repair and partial fundoplication with Dr. Carter on September 07. She has continued Pantoprazole 40 mg p.o. twice daily. Her heartburn is mildly improved since increasing this to BID, but she is still having nightly breakthrough symptoms. Regarding constipation, she did not tolerate the Linzess well due to diarrhea. She feels this is currently well managed on miralax once daily. CURRENT (04/15/24): Ms. Portillo (formerly Riki) returns to the office today for follow-up regarding GERD. She underwent hiatal hernia repair with partial fundoplication in August of this year. She complains of persistent dysphagia since her surgery. Recently, she has developed recurrence of persistent heartburn, not well controlled on Pantoprazole 40 mg p.o. twice daily. She reports intermittent regurgitation of stomach contents. Adriel Aguillon PA-C [address], [place], [address], [facility] 04/16/2024 18:49:20 06/03/2024 text/html PREVIOUS (08/21/23 ): Ms. Lyn returns to the office today for follow-up regarding GERD and chronic constipation. She underwent EGD and colonoscopy on July 08, 2023. EGD showed findings of grade C esophagitis and stricture in the GE junction that was dilated. A 6 cm sliding hiatal hernia was noted. Colonoscopy showed 1 polyp that was resected with path revealing tubular adenoma without dysplasia. Biopsy of the distal esophagus showed active esophagitis with erosion/ulceration. She also underwent esophageal manometry testing earlier this week with no [place] classification abnormality identified. She is scheduled for hiatal hernia repair and partial fundoplication with Dr. Carter on September 07. She has continued Pantoprazole 40 mg p.o. twice daily. Her heartburn is mildly improved since increasing this to BID, but she is still having nightly breakthrough symptoms. Regarding constipation, she did not tolerate the Linzess well due to diarrhea. She feels this is currently well managed on miralax once daily. Previous (04/15/24): Ms. Portillo (formerly Riki) returns to the office today for follow-up regarding GERD. She underwent hiatal hernia repair with partial fundoplication in August of this year. She complains of persistent dysphagia since her surgery. Recently, she has developed recurrence of persistent heartburn, not well controlled on Pantoprazole 40 mg p.o. twice daily. She reports intermittent regurgitation of stomach contents. CURRENT (06/03/2024 Efren Dickinson): Ms. Portillo is a 49-year-old female Here for follow-up after her EGD. She was found to have a peptic stricture which was dilated to 20 mm. also commented her fundoplication showed possible slipping and reoccurrence of 2 cm hiatal hernia. Pathology showed reactive gastropathy and Barretts esophagus. Recommend EGD in 3 years for surveillance. She was started on Voquezna at last visit. She states it was initially helpful but recently she is feeling more epigastric burning and pressure in her chest. Her swallowing has improved but food still occasionally gets stuck. Of note she does report recent GI viral illness and UTI. Esophagram was ordered on 06/02 to evaluate swallowing. RAJESH DICKINSON, TRAINING LEAD [address], [place], [address], [facility] - [facility] - [place] & [place] 06/03/2024 20:33:44 07/06/2024 text/html Ms. Portillo (previously Stix) is 10 months status post robotic assisted hiatal hernia repair with partial fundoplication. She initially did well except for some dysphagia which was improving. In March however she noted a return of some reflux symptoms. She underwent EGD with dilation of a peptic stricture. There was also some concern for possible recurrence of an approximate 2 cm hiatal hernia and possible slipping of the fundoplication. She continues to have Barretts esophagus. She was started on Voquezna which initially helped but then her symptoms again returned. Esophogram was completed on 06/23 and shows a small hiatal hernia and again possible slippage of wrap. TODAY: The patient reports that she recovered well and initially was doing great. She had complete resolution of her heartburn and even her snoring. At approximately 6 months she noticed return of heartburn/reflux and regurgitation of food. She notes that she did not have forceful vomiting but it was more like regurgitation. She was taken off of pantoprazole and started on voquezna. This improved her symptoms. She did have a stomach virus in May which caused vomiting but this was after the onset of her symptoms. She has also noted some esophageal spasms for which she was started on hyoscyamine. She notes that currently she experiences issues with drinking water and cannot tolerate a tight bra or other tight clothing. She states that the Voquezna is helping with the symptoms but she can feel fluid refluxing. She has also started snoring again. She had an EGD by GI in April and has had an esophogram. ISAAC CARTER MD [address] [facility], [place], [address], [place] - [facility] - [place] & [place] 07/06/2024 12:10:57 08/03/2024 text/html Chart review: th e patient is a 49-year-old female who underwent revision of a hiatal hernia and revision of her partial fundoplication on 07/19/2024. She returns today for follow up. Today: The patient reports that she is doing well. Unfortunately 4 days after surgery her mom was admitted to the ICU and thus she was fairly distracted. She did keep to the diet however, She is progressing well. She is doing well with the swallowing. She notes no symptoms of reflux or heartburn. ISAAC CARTER MD [address], [place], [address], [facility] & [place] 08/03/2024 13:24:16 09/09/2024 text/html PREVIOUS (08/21/23 ): Ms. Portillo is a very pleasant 49-year-old female with [...] at this time otherwise. Adriel Aguillon PA-C [address], [place], [address], [facility] & [place] 09/09/2024 16:24:14 OBGyn Episode No OBEpisode recorded.
== END 2024-11-08 23:59 | disposition home or self-care (01) ==
PROVIDERS: PCP Family Medicine; Visit Provider Student in an Organized Health Care Education/Training Program
DX: K92.1 Melena (principal); R19.7 Diarrhea, unspecified

== ENCOUNTER 2024-11-09 07:59 | Outpatient (CLI) | payer BC, SELFPAY ==
[2024-11-09 08:04] LABS: Adenovirus F 40/41, stool Not Detected (NotDetected); Astrovirus Not Detected (NotDetected); Campylobacter Not Detected (NotDetected); Clostridium Difficile A/B, PCR Not Detected (NotDetected); Cryptosporidium Not Detected (NotDetected); Cyclospora Cayetanesis Not Detected (NotDetected); Entamoeba histolytica Not Detected (NotDetected); Enteroaggregative E coli Not Detected (NotDetected); Enteropathogenic E coli Not Detected (NotDetected); Enterotoxigenic E coli Not Detected (NotDetected); Giardia lamblia Not Detected (NotDetected); Norovirus Not Detected (NotDetected); Plesimonas Shigalloides, PCR Not Detected (NotDetected); Rotavirus A Not Detected (NotDetected); Salmonella, PCR Not Detected (NotDetected); Sapovirus Not Detected (NotDetected); Shiga-like toxin E coli Not Detected (NotDetected); Shigella Enterovasive E coli Not Detected (NotDetected); Vibrio Cholerae Not Detected (NotDetected); Vibrio, PCR Not Detected (NotDetected); Yersinia Entercolitica, PCR Not Detected (NotDetected)
== END 2024-11-09 23:59 | disposition home or self-care (01) ==
LOC: LAB.DROPOF 08:00
PROVIDERS: PCP Family Medicine; Visit Provider Student in an Organized Health Care Education/Training Program
DX: R19.7 Diarrhea, unspecified (principal)
CPT/HCPCS: 87507

== ENCOUNTER 2024-11-21 15:25 | Outpatient (CLI) | payer BC, SELFPAY | END 2024-11-21 23:59 | disposition home or self-care (01) | LOC: LAB.DROPOF 15:27 | PROVIDERS: PCP Student in an Organized Health Care Education/Training Program; Visit Provider Student in an Organized Health Care Education/Training Program | DX: R35.0 Frequency of micturition (principal) | CPT/HCPCS: 87086 ==

== ENCOUNTER 2025-02-06 10:27 | Outpatient (CLI) | payer BC, SELFPAY ==
--- OUTSIDE RECORDS SUMMARY | 2024-07-07 10:30 | XMS_ITS ---
[facility] [address] [facility] [address] [place] [id number] Care Team Providers Care Shear Operator Name Role Phone Carmen Nova Primary Care Provider Imani Gardner [phone] Allergies No Known Allergies REASON FOR VISIT BP elevated and checkup Medications Medication SIG (Take, Route, Frequency, Duration) Notes Start Date End Date Status Lisinopril-hydroCHLOROthiazi de 20-25 MG 1 tab(s) Orally Once a day Active Hydroxychloroquine Sulfate 2 00 MG 1 tab(s) orally twice a day Active Desvenlafaxine Succinate ER 100 MG TAKE 1 TABLET BY MOUTH ONCE DAILY; Duration: 30 Active Reglan 5 MG 1 tablet before meal s and hs Orally 4 times daily Active Protonix 40 MG 1 tablet Orally Once a day; Duration: 30 days Active Nystatin 766908 UNIT/ML 4 ml Mouth/Throa t Four times a day; Duration: 14 day(s) 05/11/2023 Active Mylanta Coat & Cool 1200-270-80 MG/10ML 10 mL as needed Orally Three times a day Active Vital Signs Blood pressure systolic 130 mm Hg 07/07/20 24 Blood pressure diastolic 80 mm Hg 024 Heart Rate 90 /min 07/07/2024 Height 62 in 07/07/2024 Weight 176.2 lbs 07/07/2024 BMI 32.22 kg/m2 07/07/2024 Encounters Encounter Location Date Provider Diagnosis [place] [address] [facility] [address] [place] [phone] 07/07/2024 Imani Gardner HBP (high blood pressure) I10 Assessments Encounter Date Diagnosis (ICD Code) Assessment Notes Treatment Notes Treatment Clinical Notes Section Notes 07/07/2024 HBP (high blood pressure) (ICD-10 - I10) Continue to monitor blood pressure at home and report persistently elevated readings. Plan Of Treatment Medication Medication Name Sig Start Date Stop Date Notes Lisinopril-hydroCHLOROthiazi de 20-25 MG 1 tab(s) Orally Once a day Treatment Notes Assessment Notes HBP (high blood pressure) Continue to mo nitor blood pressure at home and report persistently elevated readings. Next Appt Details Follow Up: prn, Reason: Progress Notes * BENTON, DEBRADOB: 4 (49 yo F)Acc No.[id number]:07/07/2024 Progress Notes Patient: DEBRA WELCH Provider: Imani Gardner M.D. :1975 A ge:49 Y S ex:Female Date:07/07/2024 Address:[address] [place], [place] [id number] Pcp:Carmen Nova Subjective: * Chief Complaints: * 1 . BP elevated and checkup. * HPI: C ardiology: She presents with concerns of several elevated blood pressure readings recently. This is generally been asymptomatic. Pt sts that this morning her bp was 166/70 and 170/100 yesterday. * ROS: A LLERGY: no C ough. n o R unny nose. D ERMATOLOGY: no R tammie. n o H karena. U ROLOGY: no D ifficulty urinating. n o B lood in urine. * Medical History: D epression, PFO; mod MVR, Rheumatoid arthritis, HTN, Esophageal reflux. * Surgical History: t ubal 11/2011, Breast reduction 02/2013, cholecystectomy Jul 2018. * Hospitalization/Major Diagno stic Procedure: rupal delvalle 05/2005. * Family History: F ather: alive 76 yrs, High Cholestrol, Diabetes. M other: alive 80 yrs, breast cancer survivor, HBP. 2 son(s) . . * Social History: C URRENT TOBACCO USE S moking Status: Patient does NOT smoke. C affeine: yes, frequency:coke. Home smoke detector use: yes. Marital Status: . 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 Past smoking status: no, Smoking status: Does not smoke. * Medications: T aking Hydroxychloroquine Sulfate 200 MG Tablet 1 tab(s) orally twice a day , Taking Nystatin 355523 UNIT/ML Suspension 4 ml Mouth/Throat Four times a day , Taking Mylanta Coat & Cool 1200-270-80 MG/10ML Suspension 10 mL as needed Orally Three times a day , Taking Reglan 5 MG Tablet 1 tablet before meals and hs Orally 4 times daily , Taking Protonix 40 MG Tablet Delayed Release 1 tablet Orally Once a day , Taking Lisinopril-hydroCHLOROthiazide 20-12.5 MG Tablet TAKE 1 TABLET BY MOUTH ONCE DAILY , Taking Desvenlafaxine Succinate ER 100 MG Tablet Extended Release 24 Hour TAKE 1 TABLET BY MOUTH ONCE DAILY , Medication List reviewed and reconciled with the patient * Allergies: N .K.D.A. Objective: * Vitals: W t:176.2, Temp:98.0, BP:130/80, HR:90, Nurse:[facility], Ht: 62, BMI:32.22. * Examination: C ardiology: General Appearance: p leasant, NAD. C arotid upstroke:?normal, no bruits. H eart sounds: R RR, normal S1, S2. M urmur, click , gallop:?none. L ungs: c lear, no rales or wheezes. E xtremities: n o leg edema. Assessment: * Assessment: 1. H BP (high blood pressure) - I10 (Primary) Plan: * Treatment: * Follow Up: p rn * Images: Billing Information: * Visit Code: 66889 Office Visit, Est Pt., Level 3. * Procedure Codes: * Electronic signature of Imani Gardner MD on 02/06/2025 at 10:36 AM EDT Sign off status: Pending * Provider: Imani Gardner M.D. Date: 09/07/2023 Generated for Jaycob mark/Jose/Ajayitting on: 02/06/2025 10:36 AM EDT History and Physical Notes * Examination Category Sub-Category Detail Notes Category Not es Cardiology Lungs: clear, no rales or wheezes Heart sounds: RRR, normal S1, S2 Carotid upstroke: normal, no bruits Extremities: no leg edema Murmur, click , gallop: none General Appearance: pleasant, NAD
--- OUTSIDE RECORDS SUMMARY | 2024-07-29 07:30 | XMS_ITS ---
Author Organization [facility] Address [address] [facility] [address] [place] [id number] Care Team Providers Care Pharmacy Sales Representative Name Role Phone Carmen Nova Primary Care Provider [phone] Ludin Edwards Unavailable [phone] Allergies No Known Allergies Results Component Value Reference Range Notes CBC Venipuncture (in house) Reviewed date:08/01/2024 09:02:24 AM Interpretation: Normal Performing Lab: Notes/Report: Normal wbc 5.6 3.5 - 10 lymph 26.3% 15 - 50 mid 7.8% 2 - 15 gran 65.9% 35 - 80 rbc 4.81 3.5 - 5.5 hgb 12.0 11.5 - 16.5 hct 36.1 35 - 55 mcv 74.9 75 - 100 mch 24.9 25 - 35 mchc 33.2 31 - 38 platlet 450 100 - 400 P-Comprehensive Metabolic Pa ryley (CMP) Reviewed date:08/01/2024 09:02:24 AM Interpretation: Normal Performing Lab: Notes/Report: Test performed by [facility] [address] [place] [address] , [address], [place] [address] Christian Robbins MD, Application Development Intern CLIA: [id number] Sodium 140 135-145 mmol/L Potassium 4.1 3.5-5.3 mmol/L Chloride 100 97-108 mmol/L CO2 26 22-32 mmol/L Glucose 90 65-99 mg/dL BUN 6 6-20 mg/dL Creatinine 1.00 0.50-1.00 mg/dL Calcium 9.5 8.6-10.4 mg/dL eGFR by Creatinine 68 >59 mL/min/1.73m2 Protein 7.1 6.0-8.3 g/dL Albumin 4.2 3.5-5.3 g/dL Alkaline Phosphatase 75 35-121 IU/L ALT (SGPT) 34 <5-47 IU/L AST (SGOT) 19 <5-40 IU/L Bilirubin, Total 0.5 <0.2-1.2 mg/dL A/G Ratio 1.4 1.1-2.5 P-Lipid Panel Reviewed date:08/01/2024 09:02:24 AM Interpretation:chol 214, non-hdl 148, ldl 132 Performing Lab: Notes/Report: Test performed by [facility] [address] , [address], [place] [address] Christian Robbins MD, Application Development Intern CLIA: [id number] Cholesterol 214 <200 mg/dL Triglycerides 80 <150 mg/dL HDL Cholesterol 66 >39 mg/dL Cholesterol / HDL Ratio 3.24 0.00-4.44 Ratio Non-HDL Cholesterol 148 <130 mg/dL LDL Cholesterol (Calculation) 132 <130 mg/dL LDL Cholesterol Levels* Less than 100 mg/dL Optimal 100 to 129 mg/dL Near Optimal/ Above Optimal 130 to 159 mg/dL Borderline High 160 to 189 mg/dL High 190 mg/dL and above Very High * Categories as recommended by the 2004 ATPIII guidelines LDL/HDL Ratio 2.0 <3.3 Ratio LDL Cholesterol Patient History Test Date: 07/29/2024 LDL Results: 132 Units: mg/dL % Change: - P-TSH reflex to FT4 Reviewed date:08/01/2024 09:02:24 AM Interpretation: Normal Performing Lab: Notes/Report: Test performed by [facility] [address] , [place] [address] Christian Robbins MD, Application Development Intern CLIA: [id number] TSH reflex to FT4 1.15 0.43-5.25 mU/L P-Microalbumin/Creatinine, R andom Urine Sample Reviewed date:08/01/2024 09:02:24 AM Interpretation: Normal Performing Lab: Notes/Report: Test performed by [facility] [facility] [address] [place] [address] , [address], [place] [address] Christian Robbins MD, Application Development Intern CLIA: [id number] Albumin/Creatinine Ratio, Urine 8 0-30 ug/m g Microalbumin, Urine, Random 2.2 Creatinine, Urine 273.7 REASON FOR VISIT med ckup Medications Medication SIG (Take, Route, Frequency, Duration) Notes Start Date End Date Status Desvenlafaxine Succinate ER 100 MG TAKE 1 TABLET BY MOUTH ONCE DAILY; Duration: 30 days Active Lisinopril-hydroCHLOROthiazi de 20-25 MG 1 tab(s) Orally Once a day Active Hydroxychloroquine Sulfate 2 00 MG 1 tab(s) orally twice a day Active Voquezna 10 MG 1 tablet Orally Once a day; Duration: 30 day(s) Active Problems Problem Type SNOMED Code ICD Code Onset Dates Problem Status W/U Status Risk Notes Problem Anemia, unspecified type (D64.9) Active confirmed Problem Hyperlipidaemia (10095802) Hyperlipidemia, unspecified hyperlipidemia type (E78.5) Active confirmed Vital Signs Blood pressure systolic 118 mm Hg 07/29/19 25 Blood pressure diastolic 70 mm Hg 025 Heart Rate 90 /min 07/29/2024 Height 62 in 07/29/2024 Weight 167 lbs 07/29/2024 BMI 30.54 kg/m2 07/29/2024 Encounters Encounter Location Date Provider Diagnosis [facility] [address] [place], [place] [id number] 07/29/2024 Ludin Edwards HBP (high blood pres sure) I10 ; Anemia, unspecified type D64.9 and Hyperlipidemia, unspecified hyperlipidemia type E78.5 Assessments Encounter Date Diagnosis (ICD Code) Assessment Notes Treatment Notes Treatment Clinical Notes Section Notes 07/29/2024 HBP (high blood pressure) (ICD-10 - I10) Better control today 07/29/2024 Anemia, unspecified type (ICD-10 - D64.9) 07/29/2024 Hyperlipidemia, unspecified hyperlipidemia type (ICD-10 - E78.5) Plan Of Treatment Medication Medication Name Sig Start Date Stop Date Notes Lisinopril-hydroCHLOROthiazi de 20-25 MG 1 tab(s) Orally Once a day Treatment Notes Assessment Notes HBP (high blood pressure) Better control today Next Appt Details Follow Up: 6 Months, Reason: Progress Notes * DEBRA SANDERSONDOB: 4 (49 yo F)Acc No.[id number]:07/29/2024 Patient: DEBRA WELCH Provider: Karen Edwards M.D. :1975 A ge:49 Y S ex:Female Date:07/29/2024 Address:[address] [place] [id number] Pcp:Carmen Nova Subjective: * Chief Complaints: * 1 . Med ckup. * HPI: C ardiology: 49 year old female presents with c/o Blood Pressure Elevated?Pt here to f/u on hypertension, states she is doing well and does not have any concerns today.? * ROS: D ERMATOLOGY: no R tammie. n o H karena. G ASTROENTEROLOGY: no N ausea. n o V omiting. U ROLOGY: no D ifficulty urinating. n o B lood in urine. * Medical History: D epression, PFO; mod MVR, Rheumatoid arthritis, HTN, Esophageal reflux. * Surgical History: T ubal Ligation 11/2011, Breast Reduction 02/2013, Cholecystectomy 07/2018, Hiatal Hernia Repair 07/19/2024. * Hospitalization/Major Diagno stic Procedure: D enies Past Hospitalization. * Family History: F ather: alive 77 yrs, High Cholestrol, Diabetes. M other: alive 81 yrs, breast cancer survivor, HBP. 2 son(s) . . * Social History: C URRENT TOBACCO USE S moking Status: Patient does NOT smoke. C affeine: yes, frequency:coke. Home smoke detector use: yes. Marital Status: . 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 Past smoking status: no, Smoking status: Does not smoke. * Medications: T aking Voquezna 10 MG Tablet 1 tablet Orally Once a day , Taking Hydroxychloroquine Sulfate 200 MG Tablet 1 tab(s) orally twice a day , Taking Lisinopril-hydroCHLOROthiazide 20-25 MG Tablet 1 tab(s) Orally Once a day , Taking Desvenlafaxine Succinate ER 100 MG Tablet Extended Release 24 Hour TAKE 1 TABLET BY MOUTH ONCE DAILY , Discontinued Nystatin 387574 UNIT/ML Suspension 4 ml Mouth/Throat Four times a day , Discontinued Mylanta Coat & Cool 1200-270-80 MG/10ML Suspension 10 mL as needed Orally Three times a day , Discontinued Reglan 5 MG Tablet 1 tablet before meals and hs Orally 4 times daily , Discontinued Protonix 40 MG Tablet Delayed Release 1 tablet Orally Once a day , Medication List reviewed and reconciled with the patient * Allergies: N .K.D.A. Objective: * Vitals: W t:167, Temp:97.8, BP:118/70, HR:90, Nurse:alfred, Ht: 62, BMI:30.54. * Examination: C ardiology: General Appearance: p leasant, NAD. H EENT: u nremarkable. H eart sounds: R RR, normal S1, S2. L ungs: c lear, no rales or wheezes.?Extremities: n o leg edema. Assessment: * Assessment: 1. H BP (high blood pressure) - I10 (Primary) 2 . A nemia, unspecified type - D64.9 3 . H yperlipidemia, unspecified hyperlipidemia type - E78.5 Plan: * Treatment: Value Reference Range A /G Ratio 1.4 1.1-2.5 - * A lbumin 4.2 3.5-5.3 - g/dL * A lkaline Phosphatase 75 35-121 - IU/L * A LT (SGPT) 34 <5-47 - IU/L * A ST (SGOT) 19 <5-40 - IU/L * B ilirubin, Total 0.5 <0.2-1.2 - mg/dL * B UN 6 6-20 - mg/dL * C alcium 9.5 8.6-10.4 - mg/dL * C hloride 100 97-108 - mmol/L * C O2 26 22-32 - mmol/L * C reatinine 1.00 0.50-1.00 - mg/dL * G lucose 90 65-99 - mg/dL * P otassium 4.1 3.5-5.3 - mmol/L * S odium 140 135-145 - mmol/L * P rotein 7.1 6.0-8.3 - g/dL * e GFR by Creatinine 68 >59 - mL/min/1.73m2 * Mayela Horner 08/01/2024 9:02: 13 AM >See phone encounter ?LAB: P-Microalbumin/Creatinine, Random Urine Sample (Collection Date & Time - 07/29/2024 10:47 AM)?Normal* Value Reference Range A lbumin/Creatinine Ratio, Urine 8 0-30 - ug /mg * C reatinine, Urine 273.7 - mg/dL * M icroalbumin, Urine, Random 2.2 - mg/dL * Mayela Horner 08/01/2024 9:02: 13 AM >See phone encounter Notes: Better control today??2.?Anemia, unspecified type?LAB: CBC Venipuncture (in house) (Collection Date & Time - 07/29/2024)? Normal* Value Reference Range w bc 5.6 3.5 - 10 * l ymph 26.3% 15 - 50 * m id 7.8% 2 - 15 * g ran 65.9% 35 - 80 * r bc 4.81 3.5 - 5.5 * h gb 12.0 11.5 - 16.5 * h ct 36.1 35 - 55 * m cv 74.9 75 - 100 * m ch 24.9 25 - 35 * m chc 33.2 31 - 38 * p latlet 450 100 - 400 * Keila Landaverde 07/29/2024 11:59:5 4 AM > Mayela Horner 08/01/2024 9:02:13 AM >See phone encounter 3.?Hyperlipidemia, unspecified hyperlipidemia type?LAB: P-Comprehensive Metabolic Panel (CMP) (Collection Date & Time - 07/29/2024 10:47 AM)?Normal* Value Reference Range A /G Ratio 1.4 1.1-2.5 - * A lbumin 4.2 3.5-5.3 - g/dL * A lkaline Phosphatase 75 35-121 - IU/L * A LT (SGPT) 34 <5-47 - IU/L * A ST (SGOT) 19 <5-40 - IU/L * B ilirubin, Total 0.5 <0.2-1.2 - mg/dL * B UN 6 6-20 - mg/dL * C alcium 9.5 8.6-10.4 - mg/dL * C hloride 100 97-108 - mmol/L * C O2 26 22-32 - mmol/L * C reatinine 1.00 0.50-1.00 - mg/dL * G lucose 90 65-99 - mg/dL * P otassium 4.1 3.5-5.3 - mmol/L * S odium 140 135-145 - mmol/L * P rotein 7.1 6.0-8.3 - g/dL * e GFR by Creatinine 68 >59 - mL/min/1.73m2 * Mayela Horner 08/01/2024 9:02: 13 AM >See phone encounter ?LAB: P-Lipid Panel (Collection Date & Time - 07/29/2024 10:47 AM)?chol 214, non-hdl 148, ldl 132* Value Reference Range C holesterol / HDL Ratio 3.24 0.00-4.44 - Ratio * C holesterol 214 H <200 - mg/dL * H DL Cholesterol 66 >39 - mg/dL * L DL Cholesterol (Calculation) 132 H <130 - mg/d L * L DL/HDL Ratio 2.0 <3.3 - Ratio * N on-HDL Cholesterol 148 H <130 - mg/dL * T riglycerides 80 <150 - mg/dL * Mayela Horner 08/01/2024 9:02: 13 AM >See phone encounter ?LAB: P-TSH reflex to FT4 (Collection Date & Time - 07/29/2024 10:47 AM)? Normal* Value Reference Range T SH reflex to FT4 1.15 0.43-5.25 - mU/L * Mayela Horner 08/01/2024 9:02: 13 AM >See phone encounter * Procedure Codes: 8 5025 CBC WITH AUTO DIFF * Follow Up: 6 Months * Images: Billing Information: * Visit Code: 88478 Office Visit, Est Pt., Level 4. * Procedure Codes: 74435 CBC WITH AUTO DIFF. * Electronic signature of Aida Edwards MD on 02/06/2025 at 10:36 AM EDT Sign off status: Pending * Provider: Karen Edwards M.D. Date: 0 07/29/2024 Generated for Jaycob mark/Jose/Barneysmitting on: 0 02/06/2025 10:36 AM EDT History and Physical Notes * HPI (History of Present Illness) Category Sub-Category Detail Notes Category Not es Cardiology Blood Pressure Elevated Pt here to f/u on hypertension, states she is doing well and does not have any concerns today Examination Category Sub-Category Detail Notes Category Not es Cardiology Lungs: clear, no rales or wheezes HEENT: unremarkable Heart sounds: RRR, normal S1, S2 Extremities: no leg edema General Appearance: pleasant, NAD
--- NOTE | 2025-02-06 10:31 | XR_ITS ---
FINAL REPORT CLINICAL HISTORY: Foot Pain COMPARISON: 03/09/2024 FINDINGS: RIGHT FOOT: Three views show no evidence of acute displaced fracture or dislocation of the visualized bony architecture. There is mild degenerative change of the first MTP joint, which has increased since the prior exam. A minimal calcaneal spur is present. IMPRESSION: Increased mild degenerative change involving the first MTP joint since the prior exam of 03/09/2024. Reviewed, Interpreted and Dictated by Deloris Casas MD Transcribed by Natalia Aguillon Authenticated and [facility]
--- NOTE | 2025-02-06 10:31 | XR_ITS ---
FINAL REPORT CLINICAL HISTORY: Foot Pain COMPARISON: 04/25/2024 FINDINGS: LEFT FOOT: Three views show no evidence of acute displaced fracture or dislocation of the visualized bony architecture. There is mild degenerative change of the first MTP joint, stable since the prior exam. No new bony abnormalities are identified. IMPRESSION: Mild degenerative change, stable since the prior exam. Reviewed, Interpreted and Dictated by Deloris Casas MD Transcribed by Natalia Aguillon Authenticated and [facility]
--- OUTSIDE RECORDS SUMMARY | 2025-02-06 10:36 | XMS_ITS | Patient Health Record ---
Author Organization [facility] Address [address] [facility] [address] [place] [phone] Care Team Providers Care Forder Operator Name Role Phone Carmen Nova Primary Care Provider Imani Gardner Unavailable [phone] DivideLudin Unavailable [phone] Allergies No Known Allergies Results Component Value Reference Range Notes P-Microalbumin/Creatinine, R andom Urine Sample Reviewed date:08/01/2024 09:02:24 AM Interpretation: Normal Performing Lab: Notes/Report: CLIA: [id number] Christian Robbins MD, Produce Specialist [address] [place] [address] , [place] [address] Test performed by [facility] Albumin/Creatinine Ratio, Urine 8 0-30 ug/m g Microalbumin, Urine, Random 2.2 Creatinine, Urine 273.7 P-TSH reflex to FT4 Reviewed date:08/01/2024 09:02:24 AM Interpretation: Normal Performing Lab: Notes/Report: Test performed by [facility] [address] [place] [address] , [place] [address] Christian Robbins MD, Produce Specialist CLIA: [id number] TSH reflex to FT4 1.15 0.43-5.25 mU/L P-Lipid Panel Reviewed date:08/01/2024 09:02:24 AM Interpretation:chol 214, non-hdl 148, ldl 132 Performing Lab: Notes/Report: Test performed by [facility] [address] [place] [address] , [place] [address] Christian Robbins MD, Produce Specialist CLIA: [id number] Cholesterol 214 <200 mg/dL Triglycerides 80 <150 [...] Results: 132 Units: mg/dL % Change: - P-Comprehensive Metabolic Pa ryley (CMP) Reviewed date:08/01/2024 09:02:24 AM Interpretation: Normal Performing Lab: Notes/Report: Test performed by [facility], [address] , [address] , [place] [address] Christian Robbins MD, Produce Specialist CLIA: [id number] Sodium 140 135-145 mmol/L Potassium 4.1 3.5-5.3 [...] 0.5 <0.2-1.2 mg/dL A/G Ratio 1.4 1.1-2.5 CBC Venipuncture (in house) Reviewed date:08/01/2024 09:02:24 [...] - 38 platlet 450 100 - 400 Medications Medication SIG (Take, Route, Frequency, Duration) Notes Start Date End Date Status Desvenlafaxine Succinate ER 100 MG TAKE 1 TABLET BY MOUTH ONCE DAILY; Duration: 30 days Active Hydroxychloroquine Sulfate 2 00 MG 1 tab(s) orally twice a day Active Voquezna 10 MG 1 tablet Orally Once a day; Duration: 30 day(s) Active Lisinopril-hydroCHLOROthiazi de 20-25 MG TAKE 1 TABLET BY MOUTH ONCE DAILY; Duration: 90 Active Immunizations Vaccine Route Administration Date Status Comme nts COVID 19 Moderna Unknown 09/07/2020 Administered DT, 7 YEARS OR OLDER Unknown 09/20/1996 Administered Hepatitis A (adult) Unknown 12/03/2018 Administered ppd ID Intradermal 07/31/2010 Administered ppd SC Subcutaneous 03/24/2012 Administered ppd ID Intradermal 07/11/2016 Administered Tetanus Tdap-Adacel (over 7yrs) IM Intramuscular 06/25/2022 Administered xFluzone (6mos and older)-trivalent IM Intramuscular 04/23/2011 Administered Problems Problem Type SNOMED Code ICD Code Onset Dates Problem Status W/U Status Risk Notes Problem Gastroesophageal reflux disease (120990374) GERD (gastroesophageal reflux disease) (K21.9) Active confirmed Problem Mixed anxiety and depressive disorder (867697243) Depression with anxiety (F41.8) Active confirmed Problem Gastroesophageal reflux disease (340128815) Gastroesophageal reflux disease, esophagitis presence not specified (K21.9) Active confirmed Problem HBP - High blood pressure (82144512) HBP (high blood pressure) (I10) Active confirmed Problem Anemia (703614962) Anemia, unspecified type (D64.9) Active confirmed Problem Rheumatoid arthritis (23905160) Rheumatoid arthritis involving multiple sites, unspecified rheumatoid factor presence (M06.9) Active confirmed Problem Hyperlipidaemia (23140985) Hyperlipidemia, unspecified hyperlipidemia type (E78.5) Active confirmed Vital Signs Heart Rate 90 /min 07/29/2024 Blood pressure diastolic 70 mm Hg 07/29/2024 Height 62 in 07/29/2024 Blood pressure systolic 118 mm Hg 07/29/2024 Weight 167 lbs 07/29/2024 BMI 30.54 kg/m2 07/29/2024 Encounters Encounter Location Date Provider Diagnosis [facility] [address] [facility] [address] [place], [place] [id number] 07/07/2024 Imani Gardner HBP (high blood pressure) I10 [facility] [address] [facility] [address] [place], [place] [phone] 07/29/2024 Lud[place] Divide HBP (high blood pressure) I10 ; Anemia, unspecified type D64.9 and Hyperlipidemia, unspecified hyperlipidemia type E78.5 [facility] [address] [facility] [address] [place], [place] [phone] 08/01/2024 Ludin Divide Assessments Encounter Date Diagnosis (ICD Code) Assessment Notes Treatment Notes Treatment Clinical Notes Section Notes 07/07/2024 HBP (high blood pressure) (ICD-10 - I10) Continue to monitor blood pressure at home and report persistently elevated readings. 07/29/2024 HBP (high blood pressure) (ICD-10 - I10) Better control today 07/29/2024 Anemia, unspecified type (ICD-10 - D64.9) 07/29/2024 Hyperlipidemia, unspecified hyperlipidemia type (ICD-10 - E78.5) Plan Of Treatment No Information Insurance Providers Payer Name Payer Address Payer Phone Subscriber Number Group Number Insured Name Patient Relationship to Insured Coverage Start Date Coverage End Date [facility]EREMI [facility] [address] [place] [address] [id number] DEBRA Sanderson Self - patient is the insured Medical (General) History Medical History History ICD Code depression PFO; mod MVR Rheumatoid arthritis HTN Esophageal reflux Surgical History Surgery Date(Month/Year) Tubal Ligation 11/2011 Breast Reduction 02/2013 Cholecystectomy 07/2018 Hiatal Hernia Repair 07/19/2024 Hospitalization History Reason Date(Month/Year)
--- OUTSIDE RECORDS SUMMARY | 2025-02-06 10:37 | XMS_ITS | Data Portability ---
Author Organization [place] - [place] [facility] [place] [facility] ADMIN Address [address] [place] [id number] Care Team Providers Care Housekeeping Staff Name Role Phone [facility] Primary Care Provider [phone] Assessment Encounter Date Assessment Date Assessment LastModified by Organization Details LastModified Time 06/03/2024 06/03/2024 Bandar is a 48-year-old female [...] to history of BE. -Repeat EGD 04/2027 [email or web address] Not available 09/09/2024 16:24:01 02/01/2025 02/01/2025 Ms. Portillo is a 49-year-old female with [...] of the fundoplication. She underwent surgical revision earlier this year. Her reflux issues have resolved. She has developed recurrent dysphagia. 1) Esophageal dysphagia: Some concern for esophageal scleroderma. She also has history of fundoplication that may be contributing to dysphagia. -Will schedule EGD for possible dilation. 2) ?esophageal spasms: Prior manometry testing was normal. She has periodic atypical chest pain that is improved with hyoscyamine. Overall, this is better. 3) Chatterjee's esophagus: She will continue Pantoprazole to 40 mg twice daily. She is s/p fundoplication and hernia repair and subsequent revision. -Repeat EGD now per above. [email or web address] Not available 02/01/2025 08:52:45 Plan of Treatment Reminders Order Date Submit Date Provider Last Modified By Organization Details Last Modified Time Details Appointments SURGER Y 15 2024 11:30A M Kashif Rivera MD Not available Not available Not available Lab CBC w/ auto diff 2023 024 [place] [facility], [address], [address], [place], [address], 07/06/2024 16:39:56 CMP, serum or plasma 2023 024 [place] [facility], [address], [address], [place], [address], 07/06/2024 11:38:06 Referral None record ed. Procedures None record ed. Surgeries None record ed. Imaging electr ocardi ogram 2023 024 [facility] (Centralized Scheduling), [address] , [place], [address], 07/22/2024 13:24:24 Medication Orders hyoscy amine 0.125 mg sublin gual tablet 2024 025 [facility], [address] [place] [address], [address], [place], [address], 02/01/2025 08:48:57 hyoscy amine 0.125 mg sublin gual tablet 2024 025 [facility], [address] [place] [address], [address], [place], [address], 09/09/2024 11:50:40 hyoscy amine 0.125 mg sublin gual tablet 2023 024 [facility], [address] [place] [address], [address], [place], [address], 06/03/2024 20:26:59 Patient TargetsNo targets recorded. Patient InstructionsNo instructions recorded. Reason for Referral None Reported. Results Created Date Observation Date Name Description Value Unit Range Abnormal Flag Note LastModifiedBy Organization Detail LastModifiedTime 07/06/20 24 07/06/2024 COMP METAB OLIC PANEL sodium 139 mmol/ L 136-14 5 Not Available [facility] ([facility]) [address] , [place], [address], 07/06/2024 11:38:06 07/06/20 24 07/06/2024 COMP METAB OLIC PANEL potassium 3.7 mmol/ L 3.6-5. 0 Not Available [facility] ([facility]) [address] , [place], [address], 07/06/2024 11:38:06 07/06/20 24 07/06/2024 COMP METAB OLIC PANEL chloride 102 mmol/ L 98-107 Not Available [facility] ([facility]) [address] , [place], [address], 07/06/2024 11:38:06 07/06/20 24 07/06/2024 COMP METAB OLIC PANEL carbon dioxide 29.7 mmol/ L 21.0-3 2.0 Not Available [facility] ([facility]) [address] , [place], [address], 07/06/2024 11:38:06 07/06/20 24 07/06/2024 COMP METAB OLIC PANEL anion gap 11.0 Not Available [facility] ([facility]) [address] , [place], [address], 07/06/2024 11:38:06 07/06/20 24 07/06/2024 COMP METAB OLIC PANEL glucose 95 mg/dL 70-120 Not Available [facility] ([facility]) [address] , [place], [address], 07/06/2024 11:38:06 07/06/20 24 07/06/2024 COMP METAB OLIC PANEL BUN 13 mg/dL 7-18 Not Available [facility] ([facility]) [address], [place], [address], 07/06/2024 11:38:06 07/06/20 24 07/06/2024 COMP METAB OLIC PANEL creatinine 1.0 mg/dL 0.6-1. 3 Not Available [facility] ([facility]) [address], [place], [address], 07/06/2024 11:38:06 07/06/20 24 07/06/2024 COMP METAB [...] min ing kiney funct ion. Not Available [facility] ([facility]) [address], [place], [address], 07/06/2024 11:38:06 07/06/20 24 07/06/2024 COMP METAB OLIC PANEL total protein 8.0 g/dL 6.4-8. 2 Not Available [facility] ([facility]) [address], [place], [address], 07/06/2024 11:38:06 07/06/20 24 07/06/2024 COMP METAB OLIC PANEL albumin 3.9 g/dL 3.4-5. 0 Not Available [facility] ([facility]) [address], [place], [address], 07/06/2024 11:38:06 07/06/20 24 07/06/2024 COMP METAB OLIC PANEL globulin 4.1 Not Available [facility] ([facility]) [address], [place], [address], 07/06/2024 11:38:06 07/06/20 24 07/06/2024 COMP METAB OLIC PANEL alb/glob ratio 1.0 0.7-2 Not Available [facility] ([facility]) [address] , [place], [address], 07/06/2024 11:38:06 07/06/20 24 07/06/2024 COMP METAB OLIC PANEL calcium 9.0 mg/dL 8.5-10 .5 Not Available [facility] ([facility]) [address] , [place], [address], 07/06/2024 11:38:06 07/06/20 24 07/06/2024 COMP METAB OLIC PANEL bilirubin total 0.40 mg/dL 0.10-1 .00 Not Available [facility] ([facility]) [address] , [place], [address], 07/06/2024 11:38:06 07/06/20 24 07/06/2024 COMP METAB OLIC PANEL AST (SGOT) 19 U/L 0-37 Not Available [facility] ([facility]) [address] , [place], [address], 07/06/2024 11:38:06 07/06/20 24 07/06/2024 COMP METAB OLIC PANEL ALT (SGPT) 28 U/L 0-65 Not Available [facility] ([facility]) [address] , [place], [address], 07/06/2024 11:38:06 07/06/20 24 07/06/2024 COMP METAB OLIC PANEL alk phosphatase 57 U/L 46-116 Not Available [facility] ([facility]) [address] , [place], [address], 07/06/2024 11:38:06 07/06/20 24 07/06/2024 CBC AUTO W DIFF WBC 7.8 K/uL 4.0-10 .5 Not Available [facility] ([facility]) [address], [place], [address], 07/06/2024 16:39:56 07/06/20 24 07/06/2024 CBC AUTO W DIFF RBC 5.0 M/mm3 4.2-6. 4 Not Available [facility] ([facility]) [address], [place], [address], 07/06/2024 16:39:56 07/06/20 24 07/06/2024 CBC AUTO W DIFF HGB 12.0 gm/dL 12.5-1 6.0 low Not Available [facility] ([facility]) [address], [place], [address], 07/06/2024 16:39:56 07/06/20 24 07/06/2024 CBC AUTO W DIFF HCT 39.5 % 37.0-4 7.0 Not Available [facility] ([facility]) [address], [place], [address], 07/06/2024 16:39:56 07/06/20 24 07/06/2024 CBC AUTO W DIFF MCV 79.3 fL 78-100 Not Available [facility] ([facility]) [address], [place], [address], 07/06/2024 16:39:56 07/06/20 24 07/06/2024 CBC AUTO W DIFF MCH 24.1 pg 27-31 low Not Available [facility] ([facility]) [address], [place], [address], 07/06/2024 16:39:56 07/06/20 24 07/06/2024 CBC AUTO W DIFF MCHC 30.4 g/dL 32-36 low Not Available [facility] ([facility]) [address], [place], [address], 07/06/2024 16:39:56 07/06/20 24 07/06/2024 CBC AUTO W DIFF RDW 14.7 % 11.5-1 4.0 high Not Available [facility] ([facility]) [address] , [place], [address], 07/06/2024 16:39:56 07/06/20 24 07/06/2024 CBC AUTO W DIFF platelet count 459 K/uL 150-45 0 high Not Available [facility] ([facility]) [address] , [place], [address], 07/06/2024 16:39:56 07/06/20 24 07/06/2024 CBC AUTO W DIFF MPV 10.0 fL 6-9.5 high Not Available [facility] ([facility]) [address], [place], [address], 07/06/2024 16:39:56 07/06/20 24 07/06/2024 CBC AUTO W DIFF neutrophil% 56.8 % 43-65 Not Available [facility] ([facility]) [address], [place], [address], 07/06/2024 16:39:56 07/06/20 24 07/06/2024 CBC AUTO W DIFF lymphocyte% 29.0 % 20.5-4 5.5 Not Available [facility] ([facility]) [address] [place], [address], 07/06/2024 16:39:56 07/06/20 24 07/06/2024 CBC AUTO W DIFF monocyte% 11.2 % 5.5-11 .7 Not Available [facility] ([facility]) [address] [place], [address], 07/06/2024 16:39:56 07/06/20 24 07/06/2024 CBC AUTO W DIFF eosinophil% 1.5 % 0.9-2. 9 Not Available [facility] ([facility]) [address] [facility] [place], [address], 07/06/2024 16:39:56 07/06/20 24 07/06/2024 CBC AUTO W DIFF basophil% 1.2 % 0.2-1. 0 high Not Available [facility] ([facility]) [address], [place], [address], 07/06/2024 16:39:56 07/06/20 24 07/06/2024 CBC AUTO W DIFF immature granulocytes % 0.3 % 0.0-0. 8 Not Available [facility] ([facility]) [address] [facility], [place], [address], 07/06/2024 16:39:56 07/06/20 24 07/06/2024 CBC AUTO W DIFF nucleated red blood cells % 0.0 % Not Available [facility] ([facility]) [address] [facility], [place], [address], 07/06/2024 16:39:56 07/06/20 24 07/06/2024 CBC AUTO W DIFF neutrophil# 4.4 K/uL 2.2-4. 8 Not Available [facility] ([facility]) [address] [facility], [place], [address], 07/06/2024 16:39:56 07/06/20 24 07/06/2024 CBC AUTO W DIFF lymphocyte# 2.3 cell/ mcL 1.3-2. 9 Not Available [facility] ([facility]) [address], [place], [address], 07/06/2024 16:39:56 07/06/20 24 07/06/2024 CBC AUTO W DIFF monocyte# 0.9 cell/ mcL 0.3-0. 8 high Not Available [facility] ([facility]) [address], [place], [address], 07/06/2024 16:39:56 07/06/20 24 07/06/2024 CBC AUTO W DIFF eosinophil# 0.1 cell/ mcL 0-0.2 Not Available [facility] ([facility]) [address], [place], [address], 07/06/2024 16:39:56 07/06/20 24 07/06/2024 CBC AUTO W DIFF basophil# 0.1 cell/ mcL 0.0-1. 0 Not Available [facility] ([facility]) [address], [place], [address], 07/06/2024 16:39:56 07/06/20 24 07/06/2024 CBC AUTO W DIFF immature gramulocytes # 0.02 K/uL Not Available [facility] ([facility]) [address], [place], [address], 07/06/2024 16:39:56 07/06/20 24 07/06/2024 CBC AUTO W DIFF nucleated red blood cells # 0.00 K/uL Not Available [facility] ([facility]) [address], [place], [address], 07/06/2024 16:39:56 07/06/20 24 07/06/2024 CBC AUTO W DIFF manual differential NO Not Available [facility] ([facility]) [address], [place], [address], 07/06/2024 16:39:56 07/15/20 24 07/16/2024 CBC WITH DIFFE RENTI AL/PL ATELE T WBC 6.1 x10e3 /uL 3.4-10 .8 normal Not Available [facility] ([facility]) [address] [facility], [place], [address], 07/16/2024 03:36:56 07/15/20 24 07/16/2024 CBC WITH DIFFE RENTI AL/PL ATELE T RBC 5.09 x10e6 /uL 3.77-5 .28 normal Not Available [facility] ([facility]) [address] [facility] [place], [address], 07/16/2024 03:36:56 07/15/20 24 07/16/2024 CBC WITH DIFFE RENTI AL/PL ATELE T hemoglobin 12.3 g/dL 11.1-1 5.9 normal Not Available [facility] ([facility]) [address] [facility] [place], [address], 07/16/2024 03:36:56 07/15/20 24 07/16/2024 CBC WITH DIFFE RENTI AL/PL ATELE T hematocrit 40.0 % 34.0-4 6.6 normal Not Available [facility] ([facility]) [address] [facility], [place], [address], 07/16/2024 03:36:56 07/15/20 24 07/16/2024 CBC WITH DIFFE RENTI AL/PL ATELE T MCV 79 fL 79-97 normal Not Available [facility] ([facility]) [address] [place], [address], 07/16/2024 03:36:56 07/15/20 24 07/16/2024 CBC WITH DIFFE RENTI AL/PL ATELE T MCH 24.2 pg 26.6-3 3.0 below low normal Not Available [facility] ([facility]) [address] [place], [address], 07/16/2024 03:36:56 07/15/20 24 07/16/2024 CBC WITH DIFFE RENTI AL/PL ATELE T MCHC 30.8 g/dL 31.5-3 5.7 below low normal Not Available [facility] ([facility]) [address] [place], [address], 07/16/2024 03:36:56 07/15/20 24 07/16/2024 CBC WITH DIFFE RENTI AL/PL ATELE T RDW 13.9 % 11.7-1 5.4 Not Available [facility] ([facility]) [address] [facility], [place], [address], 07/16/2024 03:36:56 07/15/20 24 07/16/2024 CBC WITH DIFFE RENTI AL/PL ATELE T platelets 334 x10e3 /uL 150-45 0 normal Not Available [facility] ([facility]) [address] [facility], [place], [address], 07/16/2024 03:36:56 07/15/20 24 07/16/2024 CBC WITH DIFFE RENTI AL/PL ATELE T neutrophils 49 % not estab. normal Not Available [facility] ([facility]) [address] [facility], [place], [address], 07/16/2024 03:36:56 07/15/20 24 07/16/2024 CBC WITH DIFFE RENTI AL/PL ATELE T lymphs 27 % not estab. normal Not Available [facility] ([facility]) [address] [facility], [place], [address], 07/16/2024 03:36:56 07/15/20 24 07/16/2024 CBC WITH DIFFE RENTI AL/PL ATELE T monocytes 18 % not estab. normal Not Available [facility] ([facility]) [address] [facility], [place], [address], 07/16/2024 03:36:56 07/15/20 24 07/16/2024 CBC WITH DIFFE RENTI AL/PL ATELE T eos 5 % not estab. normal Not Available [facility] ([facility]) [address] [facility], [place], [address], 07/16/2024 03:36:56 07/15/20 24 07/16/2024 CBC WITH DIFFE RENTI AL/PL ATELE T basos 1 % not estab. normal Not Available [facility] ([facility]) [address] [facility], [place], [address], 07/16/2024 03:36:56 07/15/20 24 07/16/2024 CBC WITH DIFFE RENTI AL/PL ATELE T immature cells TANK WAGON OPERATOR Not Available [facility] ([facility]) [address] [facility], [place], [address], 07/16/2024 03:36:56 07/15/20 24 07/16/2024 CBC WITH DIFFE RENTI AL/PL ATELE T neutrophils (absolute) 3.0 x10e3 /uL 1.4-7. 0 normal Not Available [facility] ([facility]) [address] [facility], [place], [address], 07/16/2024 03:36:56 07/15/20 24 07/16/2024 CBC WITH DIFFE RENTI AL/PL ATELE T lymphs (absolute) 1.6 x10e3 /uL 0.7-3. 1 normal Not Available [facility] ([facility]) [address] [place], [address], 07/16/2024 03:36:56 07/15/20 24 07/16/2024 CBC WITH DIFFE RENTI AL/PL ATELE T monocytes(ab solute) 1.1 x10e3 /uL 0.1-0. 9 above high normal Not Available [facility] ([facility]) [address] [place], [address], 07/16/2024 03:36:56 07/15/20 24 07/16/2024 CBC WITH DIFFE RENTI AL/PL ATELE T eos (absolute) 0.3 x10e3 /uL 0.0-0. 4 normal Not Available [facility] ([facility]) [address] [place], [address], 07/16/2024 03:36:56 07/15/20 24 07/16/2024 CBC WITH DIFFE RENTI AL/PL ATELE T baso (absolute) 0.1 x10e3 /uL 0.0-0. 2 normal Not Available [facility] ([facility]) [address] [facility], [place], [address], 07/16/2024 03:36:56 07/15/20 24 07/16/2024 CBC WITH DIFFE RENTI AL/PL ATELE T immature granulocytes 0 % not estab. Not Available [facility] ([facility]) [address] [facility], [place], [address], 07/16/2024 03:36:56 07/15/20 24 07/16/2024 CBC WITH DIFFE RENTI AL/PL ATELE T immature grans (abs) 0.0 x10e3 /uL 0.0-0. 1 Not Available [facility] ([facility]) [address] [facility], [place], [address], 07/16/2024 03:36:56 07/15/20 24 07/16/2024 CBC WITH DIFFE RENTI AL/PL ATELE T NRBC TANK WAGON OPERATOR Not Available [facility] ([facility]) [address] [facility], [place], [address], 07/16/2024 03:36:56 07/15/20 24 07/16/2024 CBC WITH DIFFE RENTI AL/PL ATELE T hematology comments: TANK WAGON OPERATOR Not Available [facility] ([facility]) [address] [facility], [place], [address], 07/16/2024 03:36:56 07/15/20 24 07/16/2024 COMP. METAB OLIC PANEL (14) glucose 101 mg/dL 70-99 above high normal Not Available [facility] ([facility]) [address] [facility] [place], [address], 07/16/2024 03:36:56 07/15/20 24 07/16/2024 COMP. METAB OLIC PANEL (14) BUN 8 mg/dL 6-24 normal Not Available [facility] ([facility]) [address] [facility], [place], [address], 07/16/2024 03:36:56 07/15/20 24 07/16/2024 COMP. METAB OLIC PANEL (14) creatinine 0.93 mg/dL 0.57-1 .00 normal Not Available [facility] ([facility]) [address] [place], [address], 07/16/2024 03:36:56 07/15/20 24 07/16/2024 COMP. METAB OLIC PANEL (14) eGFR 75 mL/mi n/1.7 3 >59 normal Not Available [facility] ([facility]) [address] [place], [address], 07/16/2024 03:36:56 07/15/20 24 07/16/2024 COMP. METAB OLIC PANEL (14) BUN/creatini ne ratio 9 9-23 normal Not Available [facility] ([facility]) [address] [facility], [place], [address], 07/16/2024 03:36:56 07/15/20 24 07/16/2024 COMP. METAB OLIC PANEL (14) sodium 138 mmol/ L 134-14 4 normal Not Available [facility] ([facility]) [address], [address], 07/16/2024 03:36:56 07/15/20 24 07/16/2024 COMP. METAB OLIC PANEL (14) potassium 3.9 mmol/ L 3.5-5. 2 normal Not Available [facility] ([facility]) [address], [address], 07/16/2024 03:36:56 07/15/20 24 07/16/2024 COMP. METAB OLIC PANEL (14) chloride 98 mmol/ L 96-106 normal Not Available [facility] ([facility]) [address] [facility] [place], [address], 07/16/2024 03:36:56 07/15/20 24 07/16/2024 COMP. METAB OLIC PANEL (14) carbon dioxide, total 26 mmol/ L 20-29 normal Not Available [facility] ([facility]) [address] [place], [address], 07/16/2024 03:36:56 07/15/20 24 07/16/2024 COMP. METAB OLIC PANEL (14) calcium 9.4 mg/dL 8.7-10 .2 normal Not Available [facility] ([facility]) [address] [place], [address], 07/16/2024 03:36:56 07/15/20 24 07/16/2024 COMP. METAB OLIC PANEL (14) protein, total 7.0 g/dL 6.0-8. 5 normal Not Available [facility] ([facility]) [address] [place], [address], 07/16/2024 03:36:56 07/15/20 24 07/16/2024 COMP. METAB OLIC PANEL (14) albumin 4.3 g/dL 3.9-4. 9 normal Not Available [facility] ([facility]) [address] [place], [address], 07/16/2024 03:36:56 07/15/20 24 07/16/2024 COMP. METAB OLIC PANEL (14) globulin, total 2.7 g/dL 1.5-4. 5 Not Available [facility] ([facility]) [address] [place], [address], 07/16/2024 03:36:56 07/15/20 24 07/16/2024 COMP. METAB OLIC PANEL (14) bilirubin, total <0.2 mg/dL 0.0-1. 2 Not Available [facility] ([facility]) [address] [place], [address], 07/16/2024 03:36:56 07/15/20 24 07/16/2024 COMP. METAB OLIC PANEL (14) alkaline phosphatase 66 IU/L 44-121 normal Not Available [facility] ([facility]) [address] [place], [address], 07/16/2024 03:36:56 07/15/20 24 07/16/2024 COMP. METAB OLIC PANEL (14) AST (SGOT) 20 IU/L 0-40 normal Not Available [facility] ([facility]) [address] [facility], [place], [address], 07/16/2024 03:36:56 07/15/20 24 07/16/2024 COMP. METAB OLIC PANEL (14) ALT (SGPT) 19 IU/L 0-32 normal Not Available [facility] ([facility]) [address] [place], [address], 07/16/2024 03:36:56 06/23/20 24 06/23/2024 XR, esoph [facility] [address] [place] [address] Phone: Fax: Name: DEBRA SCHWAB Exam Date: 024 : [birth year] Age 49 years Gender : F Access ion: [id number] Physic ang: ADRIEL AGUILLON Facili ty: [facility] Facili ty HSV: Outpat ient Exam: ESOPHA GRAM EXAM: ESOPHA GRAM Perfor med by: Jenni pryor CLAY HOISTER, TANK WAGON OPERATOR-C. INDICA TION: reflux diseas e, S/P Carla [...] Cardona Transc ribed By: Transc ribed On: 10:21 AM Electr onical ly signed by: Joey Cadrona Thank you for referr DEBRA Fontana to [facility] al. Legall y authen ticate d by YEHUDA Pierce 2023-07 10:21: 56 CC'ed Logic: Orderi ng Provid er: SAMMIE LOCKE Attend ing Provid er: SAMMIE LOCKE Referr ing Provid er: SAMMIE LOCKE Admitt ing Provid er: SAMMIE LOCKE [id number] [facility] [address] [place] [address], [place], [address], 06/27/2024 16:30:39 Result Notes Documentation Provider Name and Address Organization Details Recorded Time Xr, Esophagram : [address] [place] [address] Name: DEBRA PORTILLO Exam Date: 06/23/2024 : 1975 Age 49 years Gender: F Physician: ADRIEL AGUILLON Facility: [facility] Facility HSV: Outpatient Exam: ESOPHAGRAM EXAM: ESOPHAGRAM Performed by: YINKA Reyes APRN. INDICATION: reflux disease, S/P Carla procedure 09/2023. Sliding hernia dx by EGD. TECHNIQUE: Barium contrast evaluation of the esophagus was performed using double contrast technique. Multiple overhead and fluoroscopic spot images re obtained. FLUORO TIME: 1 minute. Reference air kerma: 6.7 mGy. FINDINGS: There is a normal primary stripping wave. Esophageal mucosa is unremarkable. No intrinsic or extrinsic masses, strictures noted. There may be partial dehiscence of the fundoplication wrap. There is a small hiatal hernia containing the proximal stomach. Remainder of the stomach is intra-abdominal and appears unremarkable. No gastroesophageal reflux is observed including after Valsalva. A 13 mm barium tablet passes easily through the esophagus and into the stomach. IMPRESSION: 1. Small hiatal hernia. 2. Findings that may represent partial dehiscence of the fundoplication wrap. Electronically signed by:Joey Ponce MD06/23/2024 04:27 PM [facility] Dictated By: Joey Ponce Transcribed By: Transcribed On: 06/23/2024 10:21 AM Electronically signed by: Joey Ponce 06/23/2024 Thank you for referring DEBRA PORTILLO to [facility]. Legally authenticated by DILLAN Pierce 2024-06-23 10:21:56 CC'ed Logic: Ordering Provider: SAMMIE LOCKE Attending Provider: SAMMIE LOCKE Referring Provider: SAMMIE LOCKE Admitting Provider: SAMMIE Aguillon PA-C [address], [place], [address], [facility] & [place] 06/27/2024 16:30:39 Problems Name Problem SNOMED Code Status Onset Date Resolution Date Notes Provider Name and Address Organization Details Recorded Time Gastroesophag eal reflux disease without esophagitis 947866609 Active 2022 Adriel Aguillon PA-C [address], [place], [address] , [place] [facility] - [place] & [place] 3 15:04:00 Chronic idiopathic constipation 65394262 Active 2022 Adriel Aguillon PA-C [address], [place], [address] , [place] & [place] 3 15:05:10 Systemic sclerosis 21616522 Active 2022 dAriel Aguillon PA-C [address], [place], [address] , [place] & [place] 3 15:06:46 Esophageal dysphagia 49544359 Active 2022 Adriel Aguillon PA-C [address], [place], [address] , [place] - [facility] - [place] & [place] 3 15:07:32 Hiatal hernia 24760014 Active 2023 Roberto Williamson, MARBELLA, CLAY HOISTER, TANK WAGON OPERATOR-C [address], [place], [address] , [place] - [facility] - [place] & [place] 4 11:23:12 Pre-surgery evaluation Active 2023 Roberto Williamson, MARBELLA, CLAY HOISTER, TANK WAGON OPERATOR-C [address], [place], [address] , [place] & [place] 4 11:24:22 Anxiety 98425102 Active 2023 Roberto Williamson, MARBELLA, CLAY HOISTER, TANK WAGON OPERATOR-C [address], [place], [address] , [place] & [place] 4 11:49:03 Depressive disorder 40892603 Active 2023 Roberto Williamson, MARBELLA, CLAY HOISTER, TANK WAGON OPERATOR-C [address], [place], [address] , [place] & [place] 4 11:49:07 Essential hypertension 80339914 Active 2023 Roberto Williamson, DNP, CLAY HOISTER, TANK WAGON OPERATOR-C [address], [place], [address] , [place] - [place] & [place] 4 11:49:13 Rheumatoid arthritis 44825888 Active 2023 Roberto Williamson, DNP, CLAY HOISTER, TANK WAGON OPERATOR-C [address], [place], [address] , [place] - [facility] - [place] & [place] 4 11:49:20 Regurgitation of gastric content 04422289 Active 2023 Adriel Aguillon PA-C [address], [place], [address] , [place] - [place] - [place] & [place] 4 18:48:52 Hiatal hernia with gastroesophag eal reflux 276671074 Active [address], [place], [address] , [place] - [place] - [place] & [place] 4 20:50:21 Atypical chest pain 417480769 Active 2024 Adriel Aguillon PA-C [address], [place], [address] , [place] - [place] & [place] 5 11:31:03 Chatterjee's esophagus 043868482 Active [address], [place], [address] , [place] - [place] & [place] 5 11:31:03 Dysphagia 03113383 Active [address], [place], [address] , [place] - [place] & [place] 5 08:40:07 Scleroderma Active [address], [place], [address] , [place] & [place] 08:51:33 Problem Notes None recorded. Procedures Surgical History Date Name Laterality Status Provider Name and Address Organization Details Recorded Time 024 fundoplication completed Rosalie Naranjo [place] & [place] 08/03/2024 13:14:53 022 completed Dejajensen Dolandwell [place] & [place] 09/09/2024 11:34:46 022 Date of Last Pap Smear completed Deja Thompson [place] & [place] 09/09/2024 11:34:46 015 Gastrointestinal Surgery completed Deja Thompson [place] & [place] 09/09/2024 11:35:02 013 Breast Surgery completed Deja Thompson [place] & [place] 09/09/2024 11:35:02 Cholecystectomy completed Roberto Arevalo, MARBELLA, CLAY HOISTER, TANK WAGON OPERATOR-C [address] , [place], [address], [place] [facility] [facility] & [place] 07/28/2023 11:11:17 Breast reduction completed Roberto Williamson, MARBELLA, CLAY HOISTER, TANK WAGON OPERATOR-C [address] , [place], [address], [place] [facility] [facility] & [place] 07/28/2023 11:11:09 Tubal Ligation completed Rosalie Naranjo [place]LA[place] - [facility] & [place] 07/06/2024 09:27:55 fundoplication completed Rosalie Naranjo [place] & [place] 07/06/2024 09:28:07 Imaging Results [...] lisinopril 20 mg-hydrochl orothiazide 12.5 mg tablet 02/01 completed Not Available Not Available Not Available azithromyci [...] Not Available metoclopram maxx 5 mg tablet 02/01 completed Not Available Not Available Not Available cephalexin [...] for 30 days, for esophagea l spasm. 2024 active Not Available Not Available Not Avai lable gabapentin 300 mg capsule Take 1 capsule [...] route as needed, for post op nausea. 02/01 completed Not Available Not Available Not Available naproxen 500 mg tablet 07/06 completed [...] day by oral route for 30 days. 02/01 completed Not Available Not Available Not Available Vitals Date Recorded Body height Body mass index (BMI) Body weight Body temperature Heart rate Systolic And Diastolic Provider Name and Address Organization Details Last Updated DateTime 5 160.02 cm 29.5 kg/m2 34087.1 3 g 97.5 [degF] 72 /min 110/77 mm[Hg] Rosalie Naranjo [facility] & [place] 5 13:14:05 Date Recorded Body height Body mass index (BMI) Body weight Body temperature Oxygen saturation Oxygen saturation in Arterial blood by Pulse oximetry Heart rate Heart rate Systolic And Diastolic Provider Name and Address Organization Details Last Updated DateTime 5 160.02 cm 29.3 kg/m2 28159.8 2 g 96.7 [degF] 99 % 99 % 75 /min 78 /min 159/88 mm[Hg] Deja Dolandwell [facility] & [place] 5 11:35:31 Date Recorded Body height Body mass index (BMI) Body weight Body temperature Oxygen saturation Oxygen saturation in Arterial blood by Pulse oximetry Heart rate Systolic And Diastolic Provider Name and Address Organization Details Last Updated DateTime 5 160.02 cm 30.1 kg/m2 85678.3 4 g 97.2 [degF] 98 % 98 % 82 /min 141/97 mm[Hg] Deirdre Ellsworth [facility] & [place] 5 08:30:19 Date Recorded Body height Body mass index (BMI) Body weight Body temperature Oxygen saturation Oxygen saturation in Arterial blood by Pulse oximetry Heart rate Systolic And Diastolic Provider Name and Address Organization Details Last Updated DateTime 4 160.02 cm 30.1 kg/m2 14798.7 g 97.5 [degF] 98 % 98 % 88 /min 130/90 mm[Hg] Tierra Ly [facility] & [place] 4 09:23:44 Date Recorded Body height Body mass index (BMI) Body weight Body temperature Heart rate Systolic And Diastolic Provider Name and Address Organization Details Last Updated DateTime 4 160.02 cm 30.7 kg/m2 56615.2 g 97.8 [degF] 94 /min 170/100 mm[Hg] Rosalie BABIN [facility] & [place] 09:28:43 Social History Question Answer Notes LastModified by Organizat ion Details LastModified Time Tobacco Smoking Status Never Smoker Rosalie garnica, OLAF [facility] & [place] 07/28/2023 10:55:50 Do You Have An Advance Directive? No [email or web address] Information not available 09/09/2024 Are You Blind Or Do You Have Difficulty Seeing? No [email or web address] Information not available 09/09/2024 What Was The Date Of Your Most Recent Tobacco Screening? 06/22/2023 [email or web address] Information not available 09/09/2024 Are You Passively Exposed To Smoke? No Information not available 09/09/2024 How Much Tobacco Do You Smoke? No [email or web address] Information not available 09/09/2024 Has Tobacco Cessation Counseling Been Provided? No Information not available 08/21/2023 Sex: Female Functional Status Question Answer Note LastModified by Organizat ion Details LastModified Time Do you use any illicit or recreational drugs? No [email or web address] Information not available 06/25/2023 Do you or have you ever used any other forms of tobacco or nicotine? No Information not available 08/21/2023 What is your level of alcohol consumption? 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 Moderate [email or web address] Information not available 09/09/2024 Mental Status Question Answer Note LastModified by Organization D etails LastModified Time Do you feel stressed (tense, restless, nervous, or anxious, or unable to sleep at night)? [id number] [email or web address] Information not available 09/09/2024 Family History Relationship Description Onset Age of [...] SNOMED-CT Code Diagnosis ICD10 Code Diagnosis Note [id number] Adriel Aguillon PA-C [facility] [address] [facility] [address] [place] [address] 06/25/2023 14:17:18 06/25/2023 15:05:25 Gastroesophageal reflux disease without esophagitis 594644432 K21.9 Chronic id iopathic constipation 41037355 K59.04 Systemic sclerosis 64530 008 M34.9 Esophageal dysphagia 408 11711 R13.19 [id number] Roberto Williamson, DNP, CLAY HOISTER, TANK WAGON OPERATOR-C [facility] [address] [facility] [address] [place] [address] 07/28/2023 10:45:14 07/28/2023 11:55:47 Hiatal hernia 08437367 K44.9 Robotic assisted Partial fundoplica tion with [...] a informatio n handout. Pre-surger y evaluation 824206977 Z01.818 Gastroesop hageal reflux disease without esophagitis 575426402 K21.9 Esophageal dysphagia 408 10890 R13.19 Anxiety 39192506 F41.9 Depressive disorder 3548 9007 F32.A Essential hypertension 88122948 I10 Rheumatoid arthritis 698 74443 M06.9 [id number] Adriel Aguillon PA-C [facility] [address] [place] [address] 08/21/2023 08:25:11 08/21/2023 09:13:33 Gastroesophageal reflux disease without esophagitis 086129594 K21.9 Chronic id iopathic constipation 38927535 K59.04 Systemic sclerosis 37817 008 M34.9 Esophageal dysphagia 408 65872 R13.19 [id number] ISAAC CARTER MD [facility] [address] [facility] [address] [place] [address] 09/22/2023 09:17:21 09/23/2023 09:22:27 Postoperative visit 526645053 Z48.89 Doing wellFollow ing 8 week diet advancemen t, has the instructio ns for this at homeContin ue diet advancemen t as per schedule providedPa in control PRNContinu e to avoid heavy lifting for 6 weeksMay return to work on Fo llow-up PRN [id number] Adriel Aguillon PA-C [facility] [address] [address] 04/15/2024 11:18:16 04/15/2024 12:28:26 Gastroesophageal reflux disease without esophagitis 811167488 K21.9 Systemic sclerosis 46363 008 M34.9 Esophageal dysphagia 408 44647 R13.19 Regurgitat ion of gastric content 14216839 R11.10 History of fundoplication 306805404 Z98.216 [id number] Adriel Aguillon PA-C [facility] [address] [place] [address] 06/03/2024 09:18:39 06/03/2024 10:17:24 Esophageal dysphagia 67432123 R13.19 Regurgitat ion of gastric content 92358016 R11.10 History of fundoplication 752239774 Z98.890 Hiatal her anne with gastroesophageal reflux 161438085 K21.9 Chatterjee's esophagus 3029 36342 K22.70 Atypical chest pain 1025 10330 R07.89 [id number] MD [facility] [address] [facility] [address] [place]OLORESWho@ N, [place] [address] 07/06/2024 09:16:38 07/06/2024 10:23:47 Hiatal hernia 58117745 K44.9 Recurrent small hiatal hernia with possible slippage of prior fundoplica tion. Recommend repeating EGD myself for me to directly visualize the anatomy. She may require re-repair of the hiatal hernia and or fundoplica tion.[facility] er recommenda tion will be based on EGD results but diagnostic laparoscop y with possible revision of her prior hernia.Con mateus fu Pre-surger y evaluation 221870786 Z01.965 [id number] ISAAC CARTER MD [facility] [address] [facility] [address] [facility] N, [place] [address] 08/03/2024 13:07:49 08/03/2024 13:41:51 Postoperative visit 811770099 Z48.89 Doing wellFollow ing 6-8 week diet advancemen t, has the instructio ns for this at homeContin ue diet advancemen t as per schedule providedPa in control PRNContinu e to avoid heavy lifting for 6 weeksFollo w-up PRN [id number] Adriel Aguillon PA-C [facility] [address] [facility] [address] [facility] N, [place] [address] 09/09/2024 11:23:16 09/09/2024 12:24:00 Esophageal dysphagia 30221981 R13.19 Regurgitat ion of gastric content 05542758 R11.10 History of fundoplication 034786873 Z98.890 Patient with recurrent upper GI symptoms, esophagram shows possible partial dehiscence of wrap and a small hiatal hernia. Will refer to surgery for further recommenda tions. Hiatal her anne with gastroesophageal reflux 858082838 K21.9 Chatterjee's esophagus 3029 78708 K22.70 Atypical chest pain 1025 29413 R07.89 [id number] Adriel Aguillon PA-C [facility] [address] [facility] [address] 02/01/2025 08:24:03 02/02/2025 11:23:50 Esophageal dysphagia 08668140 R13.19 History of fundoplication 883080210 Z98.890 Patient with recurrent upper GI symptoms, esophagram shows possible partial dehiscence of wrap and a small hiatal hernia. Will refer to surgery for further recommenda tions. Hiatal her anne with gastroesophageal reflux 574055988 K21.9 Chatterjee's esophagus 3029 04779 K22.70 Atypical chest pain 1025 77552 R07.89 Scleroderma 147634889 M3 4.9 Health Concerns Section Related Observation LastModified by Organization Detai ls LastModified Time None Recorded Concern Status LastModified by Organization Details LastModified Time None Recorded Advance Directives Directive N: Payers Insurance Date Sequence Insurance Name Policy Number Policy Cornejo Covered Member ID Cornejo Member ID Guarantor Name 02/04/2025 1 [place] [place] [id number] Debra Portillo [id number] Debra Portillo Notes Date Note Type Note Provider Name and Address Organization Details Recorded Time 06/03/2024 text/html PREVIOUS (08/21/23 ): Ms. Lyn [...] manometry testing earlier this week with no [place] classification abnormality identified. She is scheduled for [...] once daily. Previous (04/15/24): Ms. Portillo (formerly [employer]) returns to the office today for follow-up [...] on 06/02 to evaluate swallowing. RAJESH DICKINSON, TANK WAGON OPERATOR [address] [facility], [place], [address], [place] - [place] & [place] 06/03/2024 20:33:44 07/06/2024 text/html Ms. Portillo (previously [...] had an esophogram. ISAAC CARTER MD [address], [place], [address], [facility] & [place] 07/06/2024 12:10:57 08/03/2024 text/html Chart review: e patient is a 49-year-old female who [...] of reflux or heartburn. ISAAC CARTER MD [address], [place], [address], [facility] & [place] 08/03/2024 13:24:16 09/09/2024 text/html PREVIOUS (08/21/23 ): [...] at this time otherwise. Adriel Aguillon PA-C [address], [place], [address], [facility] & [place] 09/09/2024 16:24:14 02/01/2025 text/html PREVIOUS (08/21/23 ): Ms. Portillo is [...] managing well overall at this time otherwise. CURRENT (02/01/25): Ms. Portillo returns to the office today with complaint of recurrent dysphagia. This is happening intermittently. She feels that liquid is stacking up in the esophagus like a column and spilling over into the pharynx. She denies odynophagia. She continues to have mild occasional chest discomfort that is alleviated with hyoscyamine. This is moderately improved overall. She denies heartburn. Adriel Aguillon PA-C [address], [place], [address], [facility] & [place] 02/01/2025 08:52:58 OBGyn Episode No OBEpisode recorded.
--- OUTSIDE RECORDS SUMMARY | 2025-02-06 10:37 | XMS_ITS | Continuity of Care Document ---
Author Organization [place] & [place], [facility] Address [address] [address] Care Team Providers Care Mortgage Loan Processor Name Role Phone [facility] Primary Care Provider [phone] Assessment Encounter Date Assessment Date Assessment LastModified by Organization Details LastModified Time 02/01/2025 02/01/2025 Ms. Portillo is a 49-year-old [...] subsequent revision. -Repeat EGD now per above. [email or web address] Not available 02/01/2025 08:52:45 Plan of Treatment Reminders Order Date Submit Date Provider Last Modified By Organization Details Last Modified Time Details Appointments SURGERY 15 2024 11:30A M Kashif Rivera MD Not available Not available Not available Lab None recorded. Referral None recorded. Procedures None recorded. Surgeries None recorded. Imaging None recorded. Medication Orders hyoscyami ne 0.125 mg sublingua l tablet 2024 025 [facility], [address] [place] [address], [address], [place], [address], 02/01/2025 08:48:57 Patient TargetsNo targets recorded. Patient InstructionsNo instructions recorded. Reason for Referral None Reported. Problems Name Problem SNOMED Code Status Onset Date Resolution Date Notes Provider Name and Address Organization Details Recorded Time Gastroesophag eal reflux disease without esophagitis 585336136 Active 2022 Adriel Aguillon PA-C [address] , [place], [address] , [place] - [place] - [place] 3 15:04:00 Chronic idiopathic constipation 23140503 Active 2022 Adriel Aguillon PA-C [address] , [place], [address] , [place] 3 15:05:10 Systemic sclerosis 71908805 Active 2022 Adriel Aguillon PA-C [address] , [place], [address] , [place] 3 15:06:46 Esophageal dysphagia 18678362 Active 2022 Adriel Aguillon PA-C [address] , [place], [address] , [place] [facility] 3 15:07:32 Hiatal hernia 76314863 Active 2023 Roberto Williamson DNP, APRN, ELIJAHC [address] , [place], [address] , [place] 4 11:23:12 Pre-surgery evaluation Active 2023 Roberto Williamson DNP, APRN, SPLITTING MACHINE FEEDER-C [address], [place], [address] , [place] 4 11:24:22 Anxiety 74704865 Active 2023 Roberto Williamson DNP, STATOR PLATE WASHER, SPLITTING MACHINE FEEDER-C [address], [place], [address] , [place] 4 11:49:03 Depressive disorder 99021115 Active 2023 Roberto Williamson, MARBELLA, STATOR PLATE WASHER, SPLITTING MACHINE FEEDER-C [address], [place], [address] , [place] 4 11:49:07 Essential hypertension 55294010 Active 2023 Roberto Williamson DNP, STATOR PLATE WASHER, SPLITTING MACHINE FEEDER-C [address], [place], [address] , [place] [facility] 4 11:49:13 Rheumatoid arthritis 86437923 Active 2023 Roberto Williamson DNP, STATOR PLATE WASHER, SPLITTING MACHINE FEEDER-C [address], [place], [address] , [place] [facility] 4 11:49:20 Regurgitation of gastric content 43098985 Active 2023 Adriel Aguillon PA-C [address], [place], [address] , [place] 4 18:48:52 Hiatal hernia with gastroesophag eal reflux 648841338 Active 2023 Adriel Aguillon PA-C [address], [place], [address] , [place] 4 20:50:21 Atypical chest pain 411793305 Active 2024 Adriel Aguillon PA-C [address], [place], [address] , [place] 5 11:31:03 Chatterjee's esophagus 819903001 Active 2024 Adriel Aguillon PA-C [address], [place], [address] , [place] 5 11:31:03 Dysphagia 37112397 Active 2024 Adriel Aguillon PA-C [address], [place], [address] , [place] 5 08:40:07 Scleroderma Active 2024 Adriel Aguillon PA-C [address], [place], [address] , [place] 5 08:51:33 Problem Notes None recorded. Procedures Surgical History Date Name Laterality Status Provider Name and Address Organization Details Recorded Time 024 fundoplication completed Rosalie Naranjo [place] 08/03/2024 13:14:53 022 completed Deja Thompson [place] 09/09/2024 11:34:46 022 Date of Last Pap Smear completed Deja Lopezwell [place] 09/09/2024 11:34:46 015 Gastrointestinal Surgery completed Deja Dolandwell [place] 09/09/2024 11:35:02 013 Breast Surgery completed Dejajensen Dolandwell [place] 09/09/2024 11:35:02 Cholecystectomy completed Roberto Arevalo DNP, IWONA, SPLITTING MACHINE FEEDER-C [address] , [place], [address], [place] 07/28/2023 11:11:17 Breast reduction completed Roberto Williamson DNP, IWONA, SPLITTING MACHINE FEEDER-C [address], [place], [address], [facility] - [facility] - [place] 07/28/2023 11:11:09 Tubal Ligation completed Rosalie BABIN - [facility] & [place] 07/06/2024 09:27:55 fundoplication completed Rosalie BABIN - [facility] & [place] 07/06/2024 09:28:07 Imaging Results None recorded. Procedure [...] Updated DateTime 5 160.02 cm 30.1 kg/m2 38498.3 4 g 97.2 [degF] 98 % 98 % 82 /min 141/97 mm[Hg] Deirdre Ellsworth [facility] & [place] 08:30:19 Social History Question Answer Notes LastModified by Organizat ion Details LastModified Time Tobacco Smoking Status Never Smoker [facility] [place] 07/28/2023 10:55:50 Do You Have An Advance Directive? No [email or web address] Information not available 09/09/2024 Are You Blind Or Do You Have Difficulty Seeing? No [email or web address] Information not available 09/09/2024 What Was The Date Of Your Most Recent Tobacco Screening? 06/22/2023 [email or web address] Information not available 09/09/2024 Are You Passively Exposed To Smoke? No [email or web address] Information not available 09/09/2024 How Much Tobacco Do You Smoke? No [email or web address] Information not available 09/09/2024 Has Tobacco Cessation Counseling Been Provided? No Information not available 08/21/2023 Sex: Female Functional Status Question Answer Note LastModified by Organizat ion Details LastModified Time Do you use any illicit or recreational drugs? No Information not available 06/25/2023 Do you or have you ever used any other forms of tobacco or nicotine? No Information not available 08/21/2023 What is your level of alcohol consumption? 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 Moderate [email or web address] Information not available 09/09/2024 Mental Status Question Answer Note LastModified by Organization D etails LastModified Time Do you feel stressed (tense, restless, nervous, or anxious, or unable to sleep at night)? [id number] [email or web address] Information not available 09/09/2024 Family History Relationship [...] SNOMED-CT Code Diagnosis ICD10 Code Diagnosis Note [id number] Adriel Aguillon PA-C [facility] [address] [address] 02/01/2025 08:24:03 02/02/2025 11:23:50 Esophageal dysphagia 27180098 R13.19 History of fundoplication 881137595 Z98.890 Patient with recurrent upper GI symptoms, esophagram shows possible partial dehiscence of wrap and a small hiatal hernia. Will refer to surgery for further recommenda tions. Hiatal her anne with gastroesophageal reflux 307717090 K21.9 Chatterjee's esophagus 3029 27184 K22.70 Atypical chest pain 1025 53122 R07.89 Scleroderma 743297728 M3 4.9 Health Concerns Section Related Observation LastModified by Organization Detai ls LastModified Time None Recorded Concern Status LastModified by Organization Details LastModified Time None Recorded Payers Encounter Date Sequence Insurance Name Policy Number Policy Cornejo Covered Member ID Cornejo Member ID Guarantor Name 02/01/2025 1 [place] [employer] [place] [id number] Daysi Traylor Maria E [id number] Daysi Kymberly Maria E Notes Date Note Type Note Provider Name and Address Organization Details Recorded Time 02/01/2025 text/html PREVIOUS (08/21/23 ): Ms. Portillo [...] overall. She denies heartburn. Adriel Aguillon PA-C [address], [place], [address], [facility] - [place] 02/01/2025 08:52:58 OBGyn Episode No OBEpisode recorded.
== END 2025-02-06 23:59 | disposition home or self-care (01) ==
LOC: RAD 10:29
PROVIDERS: PCP Family Medicine; Visit Provider Nurse Practitioner
DX: M19.072 Primary osteoarthritis, left ankle and foot (principal); M19.071 Primary osteoarthritis, right ankle and foot
CPT/HCPCS: 73630